=== PATIENT | female | born 1970 | race Caucasian/White ===

== ENCOUNTER 2017-04-17 20:19 | Emergency (ER) | payer OTHER, MEDICAID ==
[~2017-04-17] VITALS: Ht 154.9 cm; Wt 45.0 kg
[~2017-04-17 20:19] MED LIST: ADVA115A PO; ALPR2TAB3 PO; CEFA1INJ IVPB; CHLO25 PO; FERR324T4 PO; LORTA5 PO; NEBUMIS6; OXYGEN; PROT40TA PO; SERT50 PO
[2017-04-17 20:20] VITALS: BP 170/82; PULSE 103; RESP 16; TEMP 97.7; O2SAT 99
[2017-04-17] MEDS ORDERED: SODIUM CHLOR 0.9% 1000 ML INJ 1,000 ML IV SCH (21:47)
--- NOTE | 2017-04-17 21:50 | PD ---
HPI Chief Complaint: Abdominal Pain Time Seen by Provider: 21:29 Travel History International Travel<30 days: No Contact w/Intl Traveler<30days: No Traveled to known affect area: No History of Present Illness HPI 47-year-old female presents emergency department for evaluation of upper respiratory symptoms 2 weeks, cough, sore throat, nasal congestion. She is unsure if she is had any fevers due to lack a thermometer. 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 She still smokes 4 cigarettes a day. She is also reporting abdominal pain 2 days. Patient states she had a ruptured intestine in 2014 and since that surgery she consistently has nausea, vomiting and diarrhea. Patient states she has not eaten since pain started 2 days ago so she is unsure if eating exacerbates the pain. The patient states the last time she felt this pain was when her bowel was perforated. Patient denies any hematemesis or blood in her stool. She denies any dysuria or hematuria. She denies any vaginal discharge or vaginal bleeding. Patient states her boyfriend was recently diagnosed with hepatitis C and she is very concerned that she may be infected. PFSH Past Medical History Hx Anticoagulant Therapy: No Autoimmune Disease: No Anxiety: Yes Depression: Yes Cancer: No Cardiovascular Problems: Yes Chemotherapy: No COPD: Yes (PPD SMOKER) Cerebrovascular Accident: No Diabetes: No Deep Vein Thrombosis: Yes Endocrine: No Immune Disorder: No Implanted Vascular Access Dvce: No Neurologic: No Psychiatric: No Respiratory: Yes (COPD) Immunizations Current: Yes Thyroid Disease: No Ulcer: Yes (REPAIR IN 2010) Tetanus Vaccination: > 5 Years Influenza Vaccination: No ?: Unknown Menopausal: Yes : 2 Para: 2 Miscarriage: 0 Tubal Ligation: Yes Past Surgical History Abdominal Surgery: Yes Cholecystectomy: Yes (2010 removed half stomach from perforated ulcers) Genitourinary Surgery: Yes Hysterectomy: Yes (1998) Thoracic Surgery: Yes (RT MID/LOWER LOBECTOMY 2010) Valve Replacement: Yes (right ivc filter, right lower lobes lung gone r/t clot) Other Surgery: Yes (right mid and lower lobectomy 2010) Social History Alcohol Use: Yes (rare) Tobacco Use: Yes ( pack a day ) Substance Use: No Allergies-Medications (Allergen,Severity, Reaction): Coded Allergies: No Known Allergies (Unverified Adverse Reaction, Unknown, 04/17/17) Reported Meds & Prescriptions Reported Meds & Active Scripts Active Azithromycin 250 Mg Tab 250 Mg PO DIRECTED Take 2 tabs (500 mg) on day 1 then 1 tab daily x 4 days. Tramadol (Tramadol HCl) 50 Mg Tab 50 Mg PO Q6H PRN Ancef (Cefazolin) 1 gram Inj 1 Gm IVPB Q8H 14 Days Hydrocodone/Acetaminophen 5 mg/325 mg 1 Tab 1 Tab PO Q4H PRN 1 Days Ferrous Sulfate 325 Mg Tab 325 Mg PO BID@12,17 30 Days Librium 25 mg Cap (Chlordiazepoxide) 25 Mg Cap 25 Mg PO Q8HR 1 Days Protonix (Pantoprazole Sodium) 40 Mg Tabdr 40 Mg PO Q12HR Reported Zoloft (Sertraline HCl) 50 Mg Tab 50 Mg PO DAILY Alprazolam 2 Mg Tab 2 Mg PO BID PRN [Oxygen 2 L] AT NIGHT [Nebulizer] Advair Hfa 115/21 (Fluticasone-Salmeterol HFA 115 mcg/21 mcg) Fluticasone/ Salmeterol 115/21 Inh 1 Puff PO BID Review of Systems Except as stated in HPI: all other systems reviewed are Neg Physical Exam Narrative GENERAL: Appears older than stated age, pale and frail 47-year-old female patient in no acute respiratory distress. SKIN: Focused skin assessment warm/dry. HEAD: Normocephalic. Atraumatic. EYES: No scleral icterus. No injection or drainage. THROAT: Mild pharyngeal injection, No exudates. Airway is patent. ENT: Mucosa pink and moist. Airway patent. Nasal turbinates appear mildly hypertrophic without nasal blood, purulent drainage or septal hematoma. NECK: Supple, trachea midline. No JVD or lymphadenopathy. CARDIOVASCULAR: Regular rate and rhythm without murmurs, gallops, or rubs. RESPIRATORY: Breath sounds equal bilaterally. No accessory muscle use. GASTROINTESTINAL: Abdomen soft, bilateral lower quadrant tenderness with palpation, no masses noted, nondistended. MUSCULOSKELETAL: No cyanosis, or edema. BACK: Nontender without obvious deformity. No CVA tenderness. Data Data Last Documented VS Vital Signs Date Time Temp Pulse Resp B/P (MAP) Pulse Ox O2 Delivery O2 Flow Rate FiO2 04/18/17 04:53 04/18/17 02:00 80 16 98 Room Air 04/17/17 20:20 97.7 Orders Orders Complete Blood Count With Diff (12/15/17 21:47) Comprehensive Metabolic Panel (04/17/17 21:47) Lipase (04/17/17 21:47) Prothrombin Time / Inr (Pt) (04/17/17 21:47) Act Partial Throm Time (Ptt) (04/17/17 21:47) Urinalysis - C+S If Indicated (04/17/17 21:47) Iv Access Insert/Monitor (04/17/17 21:47) Ecg Monitoring (04/17/17 21:47) Sodium Chlor 0.9% 1000 Ml Inj (Ns 1000 M (04/17/17 21:47) Influenzae A/B Antigen (04/17/17 21:48) Chest, Single Ap (04/17/17 21:48) Abdomen, Upright Only (04/17/17 22:02) Labs Laboratory Tests Test 04/17/17 22:00 White Blood Count 5.7 TH/MM3 Red Blood Count 4.23 MIL/MM3 Hemoglobin 11.7 GM/DL Hematocrit 35.2 % Mean Corpuscular Volume 83.1 FL Mean Corpuscular Hemoglobin 27.6 PG Mean Corpuscular Hemoglobin Concent 33.2 % Red Cell Distribution Width 18.3 % Platelet Count 297 TH/MM3 Mean Platelet Volume 7.5 FL Neutrophils (%) (Auto) 53.2 % Lymphocytes (%) (Auto) 35.3 % Monocytes (%) (Auto) 6.5 % Eosinophils (%) (Auto) 4.1 % Basophils (%) (Auto) 0.9 % Neutrophils # (Auto) 3.1 TH/MM3 Lymphocytes # (Auto) 2.0 TH/MM3 Monocytes # (Auto) 0.4 TH/MM3 Eosinophils # (Auto) 0.2 TH/MM3 Basophils # (Auto) 0.1 TH/MM3 CBC Comment DIFF FINAL Differential Comment Prothrombin Time 10.1 SEC Prothromb Time International Ratio 1.0 RATIO Activated Partial Thromboplast Time 25.7 SEC Urine Color LIGHT-YELLOW Urine Turbidity HAZY Urine pH 5.5 Urine Specific [place] 1.006 Urine Protein NEG mg/dL Urine Glucose (UA) NEG mg/dL Urine Ketones NEG mg/dL Urine Occult Blood TRACE Urine Nitrite NEG Urine Bilirubin NEG Urine Urobilinogen LESS THAN 2.0 MG/DL Urine Leukocyte Esterase NEG Urine RBC 1 /hpf Urine WBC 3 /hpf Urine Squamous Epithelial Cells 4 /hpf Urine Bacteria RARE /hpf Microscopic Urinalysis Comment CULT NOT INDICATED Blood Urea Nitrogen 6 MG/DL Creatinine 0.54 MG/DL Random Glucose 74 MG/DL Total Protein 7.4 GM/DL Albumin 3.3 GM/DL Calcium Level 8.3 MG/DL Alkaline Phosphatase 92 U/L Aspartate Amino Transf (AST/SGOT) 18 U/L Alanine Aminotransferase (ALT/SGPT) 21 U/L Total Bilirubin 0.2 MG/DL Sodium Level 141 MEQ/L Potassium Level 3.6 MEQ/L Chloride Level 111 MEQ/L Carbon Dioxide Level 22.7 MEQ/L Anion Gap 7 MEQ/L Estimat Glomerular Filtration Rate 122 ML/MIN Lipase 172 U/L [facility] Medical Decision Making Medical Screen Exam Complete: Yes Emergency Medical Condition: Yes Differential Diagnosis Differential diagnoses include but not limited to gastroenteritis, perforated bowel, chronic abdominal pain, sinusitis, influenza, bronchitis Narrative Course Placed on monitor, IV obtained and blood works in the lab, CBC, CMP, lipase, PT INR, UA ordered and pending. Influenza ordered and pending. Chest x-ray ordered and pending. Upright abdomen x-ray ordered and pending. 1 L normal saline bolus given. Blood work shows no acute abnormality, liver enzymes were elevated, UA shows no acute abnormality. Dr. Taylor assumes care for this patient. Please see his documentation for further details and disposition. Laboratory Tests Test 04/17/17 22:00 White Blood Count 5.7 TH/MM3 Red Blood Count 4.23 MIL/MM3 Hemoglobin 11.7 GM/DL Hematocrit 35.2 % Mean Corpuscular Volume 83.1 FL Mean Corpuscular Hemoglobin 27.6 PG Mean Corpuscular Hemoglobin Concent 33.2 % Red Cell Distribution Width 18.3 % Platelet Count 297 TH/MM3 Mean Platelet Volume 7.5 FL Neutrophils (%) (Auto) 53.2 % Lymphocytes (%) (Auto) 35.3 % Monocytes (%) (Auto) 6.5 % Eosinophils (%) (Auto) 4.1 % Basophils (%) (Auto) 0.9 % Neutrophils # (Auto) 3.1 TH/MM3 Lymphocytes # (Auto) 2.0 TH/MM3 Monocytes # (Auto) 0.4 TH/MM3 Eosinophils # (Auto) 0.2 TH/MM3 Basophils # (Auto) 0.1 TH/MM3 CBC Comment DIFF FINAL Differential Comment Prothrombin Time 10.1 SEC Prothromb Time International Ratio 1.0 RATIO Activated Partial Thromboplast Time 25.7 SEC Urine Color LIGHT-YELLOW Urine Turbidity HAZY Urine pH 5.5 Urine Specific [place] 1.006 Urine Protein NEG mg/dL Urine Glucose (UA) NEG mg/dL Urine Ketones NEG mg/dL Urine Occult Blood TRACE Urine Nitrite NEG Urine Bilirubin NEG Urine Urobilinogen LESS THAN 2.0 MG/DL Urine Leukocyte Esterase NEG Urine RBC 1 /hpf Urine WBC 3 /hpf Urine Squamous Epithelial Cells 4 /hpf Urine Bacteria RARE /hpf Microscopic Urinalysis Comment CULT NOT INDICATED Blood Urea Nitrogen 6 MG/DL Creatinine 0.54 MG/DL Random Glucose 74 MG/DL Total Protein 7.4 GM/DL Albumin 3.3 GM/DL Calcium Level 8.3 MG/DL Alkaline Phosphatase 92 U/L Aspartate Amino Transf (AST/SGOT) 18 U/L Alanine Aminotransferase (ALT/SGPT) 21 U/L Total Bilirubin 0.2 MG/DL Sodium Level 141 MEQ/L Potassium Level 3.6 MEQ/L Chloride Level 111 MEQ/L Carbon Dioxide Level 22.7 MEQ/L Anion Gap 7 MEQ/L Estimat Glomerular Filtration Rate 122 ML/MIN Lipase 172 U/L Last Impressions Abdomen X-Ray 04/17/[id number] Signed Impressions: Service Date/Time: Monday, April 17, 2017 22:16 - CONCLUSION: 1. No acute findings. Bill Bearden MD Chest X-Ray 04/[id number] Signed Impressions: Service Date/Time: Monday, April 17, 2017 22:13 - CONCLUSION: 1. Healing right sided rib fractures. Stable perihilar parenchymal opacities bilaterally since prior examinations. Bill Bearden MD Scripts Azithromycin (Azithromycin) 250 Mg Tab 250 MG PO DIRECTED for Infection, #6 TAB 0 Refills Take 2 tabs (500 mg) on day 1 then 1 tab daily x 4 days. Prov: Luca Taylor MD 04/18/17 Tramadol (Tramadol) 50 Mg Tab 50 MG PO Q6H Y for PAIN, #10 TAB 0 Refills Prov: Luca Taylor MD 04/18/17 Sri Au Apr 17, 2017 21:50
[2017-04-17 22:11] VITALS: BP 159/97; PULSE 98; RESP 18; O2SAT 99
[2017-04-17 22:24] LABS: AUTOMATED NEUTROPHIL # 3.1 TH/MM3 (1.8-7.7); BASOPHIL # 0.1 TH/MM3 (0-0.2); BASOPHIL % 0.9 % (0.0-2.0); EOSINOPHIL # 0.2 TH/MM3 (0-0.4); EOSINOPHIL % 4.1 % (0.0-4.0); HEMATOCRIT 35.2 % (35.0-46.0); HEMOGLOBIN 11.7 GM/DL (11.6-15.3); LYMPH % 35.3 % (9.0-44.0); MEAN CELL VOLUME 83.1 FL (80.0-100.0); MEAN CORPUSCULAR HEMOGLOBIN 27.6 PG (27.0-34.0); MEAN CORPUSCULAR HGB CONC 33.2 % (32.0-36.0); MEAN PLATELET VOLUME 7.5 FL (7.0-11.0); MONO % 6.5 % (0.0-8.0); MONOCYTE # 0.4 TH/MM3 (0-0.9); NEUT % 53.2 % (16.0-70.0); PLATELET COUNT 297 TH/MM3 (150-450); RED BLOOD COUNT 4.23 MIL/MM3 (4.00-5.30); RED CELL DISTRIBUTION WIDTH 18.3 % (11.6-17.2); WHITE BLOOD COUNT 5.7 TH/MM3 (4.0-11.0)
[2017-04-17 22:29] LABS: BACTERIA, URINE RARE /hpf; BILIRUBIN, URINE NEG (NEG); BLOOD, URINE TRACE (NEG); GLUCOSE,URINE NEG (NEG); KETONE, URINE NEG (NEG); NITRITE,URINE NEG (NEG); PH, URINE 5.5 (5.0-8.5); SQUAMOUS EPITHELIAL CELL URINE 4 /hpf (0-5); URINE COLOR LIGHT-YELLOW (YELLW/STRAW); URINE LEUKOCYTE ESTERASE NEG (NEG)
--- NOTE | 2017-04-17 22:46 | RADRPT ---
EXAM DATE/TIME: 04/17/2017 22:13 [facility] COMPARISON: CHEST SINGLE AP, April 11, 2015, 2:50. INDICATIONS : Patient complains of shortness of breath. MEDICAL HISTORY : Sepsis. Gerd SURGICAL HISTORY : Tubal ligation. Lobe resection/ Rt wrist. ENCOUNTER: Initial ACUITY: 2 days PAIN SCORE: 0/10 LOCATION: chest FINDINGS: Comparison is to 2014. Remote right rib fractures and chronic parenchymal opacity in the right mid ya ng, presumably scarring similar to examination from 2 years ago. Linear scarring also present upper l eft lung. No effusion or pneumothorax. Heart size normal. CONCLUSION: 1. Healing right sided rib fractures. Stable perihilar parenchymal opacities bilaterally since prior examinations. Bill Bearden MD on April 17, 2017 at 22:42 Board Certified Radiologist. This report was verified electronically.
--- NOTE | 2017-04-17 22:49 | RADRPT ---
EXAM DATE/TIME: 04/17/2017 22:16 [facility] COMPARISON: No previous studies available for comparison. INDICATIONS : Patient complains of upper abdomen. MEDICAL HISTORY : None. SURGICAL HISTORY : None. ENCOUNTER: Initial ACUITY: 1 day PAIN SCORE: 4/10 LOCATION: Abdomen FINDINGS: A single erect view of the abdomen demonstrates the lower lungs to be clear. Multiple healing right r ib fractures. Inferior vena cava filter noted. CONCLUSION: 1. No acute findings. Bill Bearden MD on April 17, 2017 at 22:44 Board Certified Radiologist. This report was verified electronically.
[2017-04-17 22:50] LABS: ALBUMIN 3.3 GM/DL (3.4-5.0); AST (GOT) 18 U/L (15-37); BICARBONATE 22.7 MEQ/L (21.0-32.0); BLOOD UREA NITROGEN 6 MG/DL (7-18); CALCIUM 8.3 MG/DL (8.5-10.1); CHLORIDE 111 MEQ/L (98-107); CREATININE 0.54 MG/DL (0.50-1.00); GLOMERULAR FILTRATION RATE 122 ML/MIN (>89); GLUCOSE,RANDOM 74 MG/DL (74-106); LIPASE 172 U/L (73-393); SODIUM (NA) 141 MEQ/L (136-145)
[2017-04-17 22:53] LABS: ALKALINE PHOSPHATASE 92 U/L (45-117); ALT (GPT) 21 U/L (10-53); TOTAL BILIRUBIN ADULT 0.2 MG/DL (0.2-1.0); TOTAL PROTEIN 7.4 GM/DL (6.4-8.2)
[2017-04-17 22:56] LABS: PROTHROMBIN TIME - PATIENT 10.1 SEC (9.8-11.6)
[2017-04-18 02:00] VITALS: BP 147/78; PULSE 80; RESP 16; O2SAT 98
[2017-04-18] MEDS ORDERED: AZIT250T3 PO (05:15)
[2017-04-18] MEDS ORDERED: TRAM50TA PO (05:15)
--- NOTE | 2017-04-18 05:16 | PD ---
Physical Exam Date Seen by Provider: Apr 18, 2017 Time Seen by Provider: 12:30 Narrative Patient has lower left quadrant pain as well as upper congestion and flulike symptoms patient's flu was negative she was seen by the PA I am discharging the patient with a Z-Reilly and Tylenol and a few tramadol for her pain and she is going to follow-up as outpatient. Data Data Last Documented VS Vital Signs Date Time Temp Pulse Resp B/P (MAP) Pulse Ox O2 Delivery O2 Flow Rate FiO2 04/18/17 04:53 04/18/17 02:00 80 16 98 Room Air 04/17/17 20:20 97.7 Orders Orders Complete Blood Count With Diff (04/17/17 21:47) Comprehensive Metabolic Panel (04/17/17 21:47) Lipase (04/17/17 21:47) Prothrombin Time / Inr (Pt) (04/17/17 21:47) Act Partial Throm Time (Ptt) (04/17/17 21:47) Urinalysis - C+S If Indicated (04/17/17 21:47) Iv Access Insert/Monitor (04/17/17 21:47) Ecg Monitoring (04/17/17 21:47) Sodium Chlor 0.9% 1000 Ml Inj (Ns 1000 M (04/17/17 21:47) Influenzae A/B Antigen (04/17/17 21:48) Chest, Single Ap (04/17/17 21:48) Abdomen, Upright Only (04/17/17 22:02) Labs Laboratory Tests Test 04/17/17 22:00 White Blood Count 5.7 TH/MM3 Red Blood Count 4.23 MIL/MM3 Hemoglobin 11.7 GM/DL Hematocrit 35.2 % Mean Corpuscular Volume 83.1 FL Mean Corpuscular Hemoglobin 27.6 PG Mean Corpuscular Hemoglobin Concent 33.2 % Red Cell Distribution Width 18.3 % Platelet Count 297 TH/MM3 Mean Platelet Volume 7.5 FL Neutrophils (%) (Auto) 53.2 % Lymphocytes (%) (Auto) 35.3 % Monocytes (%) (Auto) 6.5 % Eosinophils (%) (Auto) 4.1 % Basophils (%) (Auto) 0.9 % Neutrophils # (Auto) 3.1 TH/MM3 Lymphocytes # (Auto) 2.0 TH/MM3 Monocytes # (Auto) 0.4 TH/MM3 Eosinophils # (Auto) 0.2 TH/MM3 Basophils # (Auto) 0.1 TH/MM3 CBC Comment DIFF FINAL Differential Comment Prothrombin Time 10.1 SEC Prothromb Time International Ratio 1.0 RATIO Activated Partial Thromboplast Time 25.7 SEC Urine Color LIGHT-YELLOW Urine Turbidity HAZY Urine pH 5.5 Urine Specific [place] 1.006 Urine Protein NEG mg/dL Urine Glucose (UA) NEG mg/dL Urine Ketones NEG mg/dL Urine Occult Blood TRACE Urine Nitrite NEG Urine Bilirubin NEG Urine Urobilinogen LESS THAN 2.0 MG/DL Urine Leukocyte Esterase NEG Urine RBC 1 /hpf Urine WBC 3 /hpf Urine Squamous Epithelial Cells 4 /hpf Urine Bacteria RARE /hpf Microscopic Urinalysis Comment CULT NOT INDICATED Blood Urea Nitrogen 6 MG/DL Creatinine 0.54 MG/DL Random Glucose 74 MG/DL Total Protein 7.4 GM/DL Albumin 3.3 GM/DL Calcium Level 8.3 MG/DL Alkaline Phosphatase 92 U/L Aspartate Amino Transf (AST/SGOT) 18 U/L Alanine Aminotransferase (ALT/SGPT) 21 U/L Total Bilirubin 0.2 MG/DL Sodium Level 141 MEQ/L Potassium Level 3.6 MEQ/L Chloride Level 111 MEQ/L Carbon Dioxide Level 22.7 MEQ/L Anion Gap 7 MEQ/L Estimat Glomerular Filtration Rate 122 ML/MIN Lipase 172 U/L MDM Supervised Visit with MAGDA: Yes Diagnosis Primary Impression: Viral syndrome Additional Impression: Abdominal pain Scripts Azithromycin (Azithromycin) 250 Mg Tab 250 MG PO DIRECTED for Infection, #6 TAB 0 Refills Take 2 tabs (500 mg) on day 1 then 1 tab daily x 4 days. Prov: Luca Taylor MD 04/18/17 Tramadol (Tramadol) 50 Mg Tab 50 MG PO Q6H Y for PAIN, #10 TAB 0 Refills Prov: Luca Taylor MD 04/18/17 Luca Taylor MD Apr 18, 2017 05:16
== END 2017-04-18 05:32 | disposition home or self-care (01) ==
LOC: NEPE 20:19
DX: B34.9 Viral infection, unspecified (principal); F17.210 Nicotine dependence, cigarettes, uncomplicated; F41.9 Anxiety disorder, unspecified; F32.9 Major depressive disorder, single episode, unspecified; J44.9 Chronic obstructive pulmonary disease, unspecified; Z98.890 Other specified postprocedural states; Z86.718 Personal history of other venous thrombosis and embolism
CPT/HCPCS: 71010; 74000; 80053; 81001; 83690; 85025; 85610; 85730; 87804; 99284; J7030

== ENCOUNTER 2017-09-07 10:28 | Emergency (ER) | payer OTHER, MEDICAID ==
[~2017-09-07] VITALS: Ht 154.9 cm; Wt 50.0 kg
[~2017-09-07 10:28] MED LIST changes: +AZIT250T3 PO; +TRAM50TA PO
[2017-09-07 10:31] VITALS: BP 188/101; PULSE 87; RESP 18; TEMP 97.9; O2SAT 98
[2017-09-07] MEDS ORDERED: SODIUM CHLORIDE 0.9% FLUSH 10 ML FLUSH IV FLUSH PRN (11:15)
[2017-09-07] MEDS ORDERED: MORPHINE SULFATE 4 MG/ML INJ IV PUSH ONE (11:15)
[2017-09-07] MEDS ORDERED: SODIUM CHLOR 0.9% 1000 ML INJ 1,000 ML IV SCH (11:15)
[2017-09-07] MEDS ORDERED: ONDANSETRON HCL 4 MG/2 ML VIAL IVP ONE (11:15)
--- NOTE | 2017-09-07 11:19 | PD ---
HPI Chief Complaint: Abdominal Pain Time Seen by Provider: 11:01 Travel History International Travel<30 days: No Contact w/Intl Traveler<30days: No Traveled to known affect area: No History of Present Illness HPI This is a 47-year-old female who presents via EMS for evaluation of abdominal pain. Symptoms started suddenly at 5 AM. The pain is sharp, constant, primarily in the epigastrium, associated nausea and vomiting. Last bowel movement yesterday. She reports a history of perforated gastrojejunal anastomosis in 2014 and she reports that this feels similar. She denies cough, congestion, chest pain, shortness of breath, dysuria, flank pain, hematuria. She reports that she continues to use [employer] powder on a regular basis although she was told to avoid NSAIDs in the past. No other complaints. PFSH Past Medical History Hx Anticoagulant Therapy: No Autoimmune Disease: No Anxiety: Yes Depression: Yes Cancer: No Cardiovascular Problems: Yes (HTN) Chemotherapy: No COPD: Yes (PPD SMOKER) Cerebrovascular Accident: No Diabetes: No Deep Vein Thrombosis: Yes Endocrine: No Immune Disorder: No Implanted Vascular Access Dvce: No Neurologic: No Psychiatric: No Respiratory: Yes (COPD) Immunizations Current: Yes Thyroid Disease: No Ulcer: Yes (REPAIR IN 2010) Menopausal: Yes : 2 Para: 2 Miscarriage: 0 Tubal Ligation: Yes Past Surgical History Abdominal Surgery: Yes Cholecystectomy: Yes (2010 removed half stomach from perforated ulcers) Genitourinary Surgery: Yes Hysterectomy: Yes (1998) Thoracic Surgery: Yes (RT MID/LOWER LOBECTOMY 2010) Valve Replacement: Yes (right ivc filter, right lower lobes lung gone r/t clot) Other Surgery: Yes (right mid and lower lobectomy 2010) Social History Alcohol Use: Yes (rare) Tobacco Use: Yes ( pack a day ) Substance Use: No Allergies-Medications (Allergen,Severity, Reaction): Coded Allergies: No Known Allergies (Unverified Adverse Reaction, Unknown, 04/17/17) Reported Meds & Prescriptions Reported Meds & Active Scripts Active Zofran (Ondansetron HCl) 4 Mg Tab 4 Mg PO Q6HR PRN Macrobid (Nitrofurantoin Monoh/Nitrofur Macro) 100 Mg Cap 100 Mg PO BID 7 Days Azithromycin 250 Mg Tab 250 Mg PO DIRECTED Take 2 tabs (500 mg) on day 1 then 1 tab daily x 4 days. Tramadol (Tramadol HCl) 50 Mg Tab 50 Mg PO Q6H PRN Ancef (Cefazolin) 1 gram Inj 1 Gm IVPB Q8H 14 Days Hydrocodone/Acetaminophen 5 mg/325 mg 1 Tab 1 Tab PO Q4H PRN 1 Days Ferrous Sulfate 325 Mg Tab 325 Mg PO BID@12,17 30 Days Librium 25 mg Cap (Chlordiazepoxide) 25 Mg Cap 25 Mg PO Q8HR 1 Days Protonix (Pantoprazole Sodium) 40 Mg Tabdr 40 Mg PO Q12HR Reported Zoloft (Sertraline HCl) 50 Mg Tab 50 Mg PO DAILY Alprazolam 2 Mg Tab 2 Mg PO BID PRN [Oxygen 2 L] AT NIGHT [Nebulizer] Advair Hfa 115/21 (Fluticasone-Salmeterol HFA 115 mcg/21 mcg) Fluticasone/ Salmeterol 115/21 Inh 1 Puff PO BID Review of Systems Except as stated in HPI: all other systems reviewed are Neg Physical Exam Narrative GENERAL: This is a well-developed well-nourished female who appears uncomfortable on examination. SKIN: Warm and dry. Abdominal surgical scars noted. HEAD: Atraumatic. Normocephalic. EYES: Pupils equal and round. No scleral icterus. No injection or drainage. ENT: No nasal bleeding or discharge. Mucous membranes pink and moist. NECK: Trachea midline. No JVD. CARDIOVASCULAR: Regular rate and rhythm. No murmur appreciated. RESPIRATORY: No accessory muscle use. Clear to auscultation. Breath sounds equal bilaterally. GASTROINTESTINAL: Diffuse abdominal tenderness to palpation with some guarding. Bowel sounds are present in all 4 quadrants. MUSCULOSKELETAL: No obvious deformities. No clubbing. No cyanosis. No edema. NEUROLOGICAL: Awake and alert. No obvious cranial nerve deficits. Motor grossly within normal limits. Normal speech. Data Data Last Documented VS Vital Signs Date Time Temp Pulse Resp B/P (MAP) Pulse Ox O2 Delivery O2 Flow Rate FiO2 09/07/17 11:31 82 18 174/86 (115) 99 Room Air 09/07/17 10:31 97.9 Orders Orders Complete Blood Count With Diff (09/07/17 11:15) Comprehensive Metabolic Panel (09/07/17 11:15) Lipase (09/07/17 11:15) Lactic Acid (09/07/17 11:15) Prothrombin Time / Inr (Pt) (09/07/17 11:15) Act Partial Throm Time (Ptt) (09/07/17 11:15) Urinalysis - C+S If Indicated (09/07/17 11:15) Ct Abd/Pel W Iv Contrast(Rout) (09/07/17 11:15) Iv Access Insert/Monitor (09/07/17 11:15) Ecg Monitoring (09/07/17 11:15) Oximetry (09/07/17 11:15) Morphine Inj (Morphine Inj) (09/07/17 11:15) Ondansetron Inj (Zofran Inj) (09/07/17 11:15) Sodium Chlor 0.9% 1000 Ml Inj (Ns 1000 M (09/07/17 11:15) Sodium Chloride 0.9% Flush (Ns Flush) (09/07/17 11:15) Electrocardiogram (09/07/17 11:15) Abdomen, Upright Only (09/07/17 11:15) Pantoprazole Inj (Protonix Inj) (09/07/17 11:30) Ed Urine Pregnancytest Poc (09/07/17 11:42) Urine Culture (09/07/17 11:25) Iohexol 350 Inj (Omnipaque 350 Inj) (09/07/17 12:48) Ceftriaxone Inj (Rocephin Inj) (09/07/17 13:15) Ed Discharge Order (09/07/17 13:25) Labs Laboratory Tests Test 09/07/17 11:21 09/07/17 11:25 09/07/17 13:23 White Blood Count 10.0 TH/MM3 Red Blood Count 4.53 MIL/MM3 Hemoglobin 13.4 GM/DL Hematocrit 40.2 % Mean Corpuscular Volume 88.7 FL Mean Corpuscular Hemoglobin 29.6 PG Mean Corpuscular Hemoglobin Concent 33.3 % Red Cell Distribution Width 18.4 % Platelet Count 259 TH/MM3 Mean Platelet Volume 8.1 FL Neutrophils (%) (Auto) 84.8 % Lymphocytes (%) (Auto) 9.1 % Monocytes (%) (Auto) 5.5 % Eosinophils (%) (Auto) 0.4 % Basophils (%) (Auto) 0.2 % Neutrophils # (Auto) 8.5 TH/MM3 Lymphocytes # (Auto) 0.9 TH/MM3 Monocytes # (Auto) 0.6 TH/MM3 Eosinophils # (Auto) 0.0 TH/MM3 Basophils # (Auto) 0.0 TH/MM3 CBC Comment DIFF FINAL Differential Comment Prothrombin Time 11.2 SEC Prothromb Time International Ratio 1.1 RATIO Activated Partial Thromboplast Time 27.3 SEC Blood Urea Nitrogen 10 MG/DL Creatinine 0.66 MG/DL Random Glucose 91 MG/DL Total Protein 7.2 GM/DL Albumin 3.5 GM/DL Calcium Level 7.9 MG/DL Alkaline Phosphatase 131 U/L Aspartate Amino Transf (AST/SGOT) 67 U/L Alanine Aminotransferase (ALT/SGPT) 32 U/L Total Bilirubin 0.3 MG/DL Sodium Level 140 MEQ/L Potassium Level 3.9 MEQ/L Chloride Level 104 MEQ/L Carbon Dioxide Level 25.2 MEQ/L Anion Gap 11 MEQ/L Estimat Glomerular Filtration Rate 96 ML/MIN Lipase 896 U/L Urine Color LIGHT-YELLOW Urine Turbidity CLEAR Urine pH 5.0 Urine Specific [place] 1.014 Urine Protein NEG mg/dL Urine Glucose (UA) NEG mg/dL Urine Ketones NEG mg/dL Urine Occult Blood MOD Urine Nitrite POS Urine Bilirubin NEG Urine Urobilinogen LESS THAN 2.0 MG/DL Urine Leukocyte Esterase MOD Urine RBC 9 /hpf Urine WBC 52 /hpf Urine Squamous Epithelial Cells 1 /hpf Urine Bacteria RARE /hpf Urine Hyaline Casts 2 /lpf Urine Mucus FEW /lpf Microscopic Urinalysis Comment CULTURE INDICATED MDM Medical Decision Making Medical Screen Exam Complete: Yes Emergency Medical Condition: Yes Medical Record Reviewed: Yes Differential Diagnosis Pancreatitis, perforation, obstruction, diverticulitis, colitis, pyelonephritis Narrative Course Lab work, CT abdomen pelvis have been ordered. The patient was given morphine and Zofran and fluids. CT abdomen pelvis reveals CONCLUSION: 1. Low density pancreatic head and uncinate process with surrounding induration likely from pancreatitis. 2. Status post distal gastrectomy. Bowel anastomosis sutures are seen in the small bowel in the left lower quadrant. 3. Hepatic steatosis. CMP reveals no acute abnormality's, lipase is elevated at [address] findings of pancreatitis. Urinalysis is suggestive of UTI with nitrites, numerous WBCs. Rocephin initiated. Upon reexamination the patient does feel significantly improved, her pain is currently minimal. She denies history of pancreatitis, she does occasionally drink. Yesterday she had a mixed drink. At this point time the plan is to treat her as an outpatient with Macrobid and Zofran. She understands to return for any new or worsening symptoms. She is stable for discharge. Diagnosis Primary Impression: Pancreatitis Additional Impression: UTI (urinary tract infection) Additional Instructions: Liquid diet for the next 1-2 days and slowly advance as tolerated. Medication as prescribed. Follow-up with primary care physician this week and return for any acutely new or worsening symptoms. Med/Other Pt SpecificInfo: Prescription(s) given Scripts Ondansetron (Zofran) 4 Mg Tab 4 MG PO Q6HR Y for NAUSEA OR VOMITING, #20 TAB 0 Refills Prov: Danielle Catalan MD 09/07/17 Nitrofurantoin Monohydrate Macrocrystals (Macrobid) 100 Mg Cap 100 MG PO BID for Infection for 7 Days, #14 CAP 0 Refills Prov: Danielle Catalan MD 09/07/17 Disposition: 01 DISCHARGE HOME Condition: Stable Juan Chau September 07, 2017 11:19
[2017-09-07] MEDS ORDERED: PANTOPRAZOLE SODIUM 40 MG VIAL IVP ONE (11:30)
[2017-09-07 11:31] VITALS: BP 174/86; PULSE 82; RESP 18; O2SAT 99
[2017-09-07 11:31] LABS: AUTOMATED NEUTROPHIL # 8.5 TH/MM3 (1.8-7.7); BASOPHIL % 0.2 % (0.0-2.0); EOSINOPHIL % 0.4 % (0.0-4.0); HEMATOCRIT 40.2 % (35.0-46.0); HEMOGLOBIN 13.4 GM/DL (11.6-15.3); LYMPH % 9.1 % (9.0-44.0); LYMPHOCYTE # 0.9 TH/MM3 (1.0-4.8); MEAN CELL VOLUME 88.7 FL (80.0-100.0); MEAN CORPUSCULAR HEMOGLOBIN 29.6 PG (27.0-34.0); MEAN CORPUSCULAR HGB CONC 33.3 % (32.0-36.0); MEAN PLATELET VOLUME 8.1 FL (7.0-11.0); MONO % 5.5 % (0.0-8.0); MONOCYTE # 0.6 TH/MM3 (0-0.9); NEUT % 84.8 % (16.0-70.0); PLATELET COUNT 259 TH/MM3 (150-450); RED BLOOD COUNT 4.53 MIL/MM3 (4.00-5.30); RED CELL DISTRIBUTION WIDTH 18.4 % (11.6-17.2)
[2017-09-07 11:42] LABS: INTERNATIONAL NORMALIZED RATIO 1.1 RATIO; PROTHROMBIN TIME - PATIENT 11.2 SEC (9.8-11.6)
[2017-09-07 11:53] LABS: ALT (GPT) 32 U/L (10-53)
[2017-09-07 11:54] LABS: BACTERIA, URINE RARE /hpf; BILIRUBIN, URINE NEG (NEG); BLOOD, URINE MOD (NEG); GLUCOSE,URINE NEG (NEG); HYALINE CAST, URINE 2 /lpf (RARE); KETONE, URINE NEG (NEG); MUCUS URINE FEW /lpf (OCC); NITRITE,URINE POS (NEG); SQUAMOUS EPITHELIAL CELL URINE 1 /hpf (0-5); URINE COLOR LIGHT-YELLOW (YELLW/STRAW); URINE LEUKOCYTE ESTERASE MOD (NEG)
[2017-09-07 11:55] LABS: ALKALINE PHOSPHATASE 131 U/L (45-117); TOTAL BILIRUBIN ADULT 0.3 MG/DL (0.2-1.0); TOTAL PROTEIN 7.2 GM/DL (6.4-8.2)
[2017-09-07 11:56] LABS: ALBUMIN 3.5 GM/DL (3.4-5.0); AST (GOT) 67 U/L (15-37); BICARBONATE 25.2 MEQ/L (21.0-32.0); BLOOD UREA NITROGEN 10 MG/DL (7-18); CALCIUM 7.9 MG/DL (8.5-10.1); CHLORIDE 104 MEQ/L (98-107); CREATININE 0.66 MG/DL (0.50-1.00); GLOMERULAR FILTRATION RATE 96 ML/MIN (>89); GLUCOSE,RANDOM 91 MG/DL (74-106); SODIUM (NA) 140 MEQ/L (136-145)
--- NOTE | 2017-09-07 11:57 | RADRPT ---
EXAM DATE/TIME: 09/07/2017 11:48 [facility] COMPARISON: No previous studies available for comparison. INDICATIONS : Abdominal pain and vomiting. MEDICAL HISTORY : None. SURGICAL HISTORY : Cholecystectomy. Stomach surgery. ENCOUNTER: Initial ACUITY: 1 day PAIN SCORE: 10/10 LOCATION: Bilateral abdomen. FINDINGS: There is no evidence of pneumoperitoneum. There is less intestinal gas pattern is nonspecific and naima ign. An IVC filter is present. Patchy parenchymal opacities in the visualized lower lung [place] and p osterolateral right-sided rib fractures noted. CONCLUSION: No evidence of pneumoperitoneum Yasir Aleman MD on September 07, 2017 at 11:54 Board Certified Radiologist. This report was verified electronically.
[2017-09-07] MEDS ORDERED: IOHEXOL 350 MG/ML 10 ML VIAL (for RAD DIAG) IVCONTRAST ONE (12:48)
--- NOTE | 2017-09-07 13:05 | RADRPT ---
EXAM DATE/TIME: 09/07/2017 12:33 [place] COMPARISON: CT ABDOMEN & PELVIS W CONTRAST, April 09, 2015, 18:10. INDICATIONS : Abdominal pain and nausea. IV CONTRAST: 80 cc Omnipaque 350 (iohexol) IV ORAL CONTRAST: No oral contrast ingested. RADIATION DOSE: 4.52 CTDIvol (mGy) MEDICAL HISTORY : Chronic obstructive pulmonary disease. Perforated bowel. SURGICAL HISTORY : Tubal ligation. Hysterectomy.Partial gastrectomy. ENCOUNTER: Initial ACUITY: 1 day PAIN SCALE: 8/10 LOCATION: abdomen TECHNIQUE: Volumetric scanning of the abdomen and pelvis was performed. Using automated exposure control and ad justment of the mA and/or kV according to patient size, radiation dose was kept as low as reasonably achievable to obtain optimal diagnostic quality images. DICOM format image data is available electro nically for review and comparison. FINDINGS: LOWER LUNGS: The visualized lower lungs are clear. LIVER: The liver demonstrates a diffuse decreased attenuation. The liver appears mildly enlarged. No focal h epatic lesions are seen. There is intrahepatic and extra hepatic biliary duct dilatation likely refle cting a reservoir phenomenon following cholecystectomy. This appearance is unchanged. SPLEEN: Normal size without lesion. PANCREAS: Within normal limits. KIDNEYS: There is low-density seen at the head and uncinate process. There is induration of the fat surroundin g the pancreatic head and uncinate process. The pancreatic body and tail are grossly intact. ADRENAL GLANDS: Within normal limits. VASCULAR: There is no aortic aneurysm. There is an IVC filter present. BOWEL/MESENTERY: Bowel anastomosis sutures are seen in the midabdomen in the small bowel. The patient is status post d istal gastrectomy. There some induration around the duodenum likely related to the pancreatic process . ABDOMINAL WALL: Within normal limits. RETROPERITONEUM: There is no lymphadenopathy. BLADDER: No wall thickening or mass. REPRODUCTIVE: Within normal limits. INGUINAL: There is no lymphadenopathy or hernia. MUSCULOSKELETAL: Within normal limits for patient age. CONCLUSION: 1. Low density pancreatic head and uncinate process with surrounding induration likely from pancreati tis. 2. Status post distal gastrectomy. Bowel anastomosis sutures are seen in the small bowel in the left lower quadrant. 3. Hepatic steatosis. Yasir Julian MD on September 07, 2017 at 12:50 Board Certified Radiologist. This report was verified electronically.
[2017-09-07] MEDS ORDERED: cefTRIAXone INJ 1,000 MG in SODIUM CHLORIDE 0.9% INJ 100 ML IV ONE (13:15)
[2017-09-07] MEDS ORDERED: ZOFR4TAB PO (13:19)
[2017-09-07] MEDS ORDERED: MACR100C2 PO (13:19)
[2017-09-07] MEDS ORDERED: HYDR-3516 PO ×2 (14:05→14:06)
--- NOTE | 2017-09-07 18:20 | PD ---
Data Data Last Documented VS Vital Signs Date Time Temp Pulse Resp B/P (MAP) Pulse Ox O2 Delivery O2 Flow Rate FiO2 09/07/17 11:31 82 18 174/86 (115) 99 Room Air 09/07/17 10:31 97.9 Orders Orders Complete Blood Count With Diff (09/07/17 11:15) Comprehensive Metabolic Panel (09/07/17 11:15) Lipase (09/07/17 11:15) Lactic Acid (09/07/17 11:15) Prothrombin Time / Inr (Pt) (09/07/17 11:15) Act Partial Throm Time (Ptt) (09/07/17 11:15) Urinalysis - C+S If Indicated (09/07/17 11:15) Ct Abd/Pel W Iv Contrast(Rout) (09/07/17 11:15) Iv Access Insert/Monitor (09/07/17 11:15) Ecg Monitoring (09/07/17 11:15) Oximetry (09/07/17 11:15) Morphine Inj (Morphine Inj) (09/07/17 11:15) Ondansetron Inj (Zofran Inj) (09/07/17 11:15) Sodium Chlor 0.9% 1000 Ml Inj (Ns 1000 M (09/07/17 11:15) Sodium Chloride 0.9% Flush (Ns Flush) (09/07/17 11:15) Electrocardiogram (09/07/17 11:15) Abdomen, Upright Only (09/07/17 11:15) Pantoprazole Inj (Protonix Inj) (09/07/17 11:30) Ed Urine Pregnancytest Poc (09/07/17 11:42) Urine Culture (09/07/17 11:25) Iohexol 350 Inj (Omnipaque 350 Inj) (09/07/17 12:48) Ceftriaxone Inj (Rocephin Inj) (09/07/17 13:15) Ed Discharge Order (09/07/17 13:25) Labs Laboratory Tests Test 09/07/17 11:21 09/07/17 11:25 09/07/17 13:23 White Blood Count 10.0 TH/MM3 Red Blood Count 4.53 MIL/MM3 Hemoglobin 13.4 GM/DL Hematocrit 40.2 % Mean Corpuscular Volume 88.7 FL Mean Corpuscular Hemoglobin 29.6 PG Mean Corpuscular Hemoglobin Concent 33.3 % Red Cell Distribution Width 18.4 % Platelet Count 259 TH/MM3 Mean Platelet Volume 8.1 FL Neutrophils (%) (Auto) 84.8 % Lymphocytes (%) (Auto) 9.1 % Monocytes (%) (Auto) 5.5 % Eosinophils (%) (Auto) 0.4 % Basophils (%) (Auto) 0.2 % Neutrophils # (Auto) 8.5 TH/MM3 Lymphocytes # (Auto) 0.9 TH/MM3 Monocytes # (Auto) 0.6 TH/MM3 Eosinophils # (Auto) 0.0 TH/MM3 Basophils # (Auto) 0.0 TH/MM3 CBC Comment DIFF FINAL Differential Comment Prothrombin Time 11.2 SEC Prothromb Time International Ratio 1.1 RATIO Activated Partial Thromboplast Time 27.3 SEC Blood Urea Nitrogen 10 MG/DL Creatinine 0.66 MG/DL Random Glucose 91 MG/DL Total Protein 7.2 GM/DL Albumin 3.5 GM/DL Calcium Level 7.9 MG/DL Alkaline Phosphatase 131 U/L Aspartate Amino Transf (AST/SGOT) 67 U/L Alanine Aminotransferase (ALT/SGPT) 32 U/L Total Bilirubin 0.3 MG/DL Sodium Level 140 MEQ/L Potassium Level 3.9 MEQ/L Chloride Level 104 MEQ/L Carbon Dioxide Level 25.2 MEQ/L Anion Gap 11 MEQ/L Estimat Glomerular Filtration Rate 96 ML/MIN Lipase 896 U/L Urine Color LIGHT-YELLOW Urine Turbidity CLEAR Urine pH 5.0 Urine Specific [place] 1.014 Urine Protein NEG mg/dL Urine Glucose (UA) NEG mg/dL Urine Ketones NEG mg/dL Urine Occult Blood MOD Urine Nitrite POS Urine Bilirubin NEG Urine Urobilinogen LESS THAN 2.0 MG/DL Urine Leukocyte Esterase MOD Urine RBC 9 /hpf Urine WBC 52 /hpf Urine Squamous Epithelial Cells 1 /hpf Urine Bacteria RARE /hpf Urine Hyaline Casts 2 /lpf Urine Mucus FEW /lpf Microscopic Urinalysis Comment CULTURE INDICATED Lactic Acid Level 0.8 mmol/L MDM Supervised Visit with MAGDA: Yes Narrative Course The history, exam, and medical decision-making in the associated midlevel provider note were completed with my assistance. I reviewed and agree with the findings presented. I attest that I had a [id number] encounter with the patient on the same day, and personally performed and documented my assessment and findings in the medical record. *My assessment and Findings: This is a 47-year-old female who has a history of perforated gastrojejunostomy and alcohol abuse who presents to the emergency department with abdominal pain. Labs demonstrate acute pancreatitis. She is nontoxic appearing. CT abdomen pelvis is reassuring with no evidence of pseudocyst or bowel perforation. Patient was discharged on pain control. Diagnosis Primary Impression: Pancreatitis Additional Impression: UTI (urinary tract infection) Patient Instructions: General Instructions Departure Forms: Tests/Procedures Additional Instruction: Liquid diet for the next 1-2 days and slowly advance as tolerated. Medication as prescribed. Follow-up with primary care physician this week and return for any acutely new or worsening symptoms. Scripts Hydrocodone-Acetaminophen (Hydrocodone-Acetaminophen) 5-325 mg Tab 1 TAB PO Q6H Y for PAIN, #15 TAB 0 Refills Prov: Danielle Catalan MD 09/07/17 Ondansetron (Zofran) 4 Mg Tab 4 MG PO Q6HR Y for NAUSEA OR VOMITING, #20 TAB 0 Refills Prov: Danielle Catalan MD 09/07/17 Nitrofurantoin Monohydrate Macrocrystals (Macrobid) 100 Mg Cap 100 MG PO BID for Infection for 7 Days, #14 CAP 0 Refills Prov: Danielle Catalan MD 09/07/17 Disposition: 01 DISCHARGE HOME Condition: Stable Danielle Catalan MD September 07, 2017 18:20
--- NOTE | 2017-09-08 14:17 | EKG ---
Date Performed: 09/07/2017 Time Performed: 11:39:36 PTAGE: 47 years EKG: Sinus rhythm POSSIBLE LEFT ATRIAL ENLARGEMENT BORDERLINE ECG PREVIOUS TRACING : 07/15/2015 15.20 DOCTOR: Blas Art Interpretating Date/Time 09/08/2017 14:15:01
== END 2017-09-07 14:24 | disposition home or self-care (01) ==
LOC: NEPE 10:28
DX: K85.90 Acute pancreatitis without necrosis or infection, unspecified (principal); N39.0 Urinary tract infection, site not specified; B96.20 Unspecified Escherichia coli [E. coli] as the cause of diseases classified elsewhere; I10 Essential (primary) hypertension; J44.9 Chronic obstructive pulmonary disease, unspecified; F32.9 Major depressive disorder, single episode, unspecified; F17.210 Nicotine dependence, cigarettes, uncomplicated
CPT/HCPCS: 74018; 74177; 80053; 81001; 83605; 83690; 84703; 85025; 85610; 85730; 87086; 93005; 96361; 96374; 96375; 99285; C9113; J0696; J2270; J2405; J7030; Q9967

== ENCOUNTER 2018-03-03 06:03 | Inpatient (IN) ==
[2018-03-03] MEDS ORDERED: Sod Chloride 0.9% Inj 1,000 ML IV.SIG ONE ×2 (06:49→06:50)
[2018-03-03] MEDS ORDERED: fentaNYL Citrate Inj 100 MCG/2 ML Ampul IV.PUSH ONE ×2 (06:49→08:18)
--- NOTE | 2018-03-03 07:01 | XR ---
EXAM DATE: 03/03/2018 6:56 AM EDT AGE/SEX: 47 years / Female INDICATIONS: Central line placement. CLINICAL DATA: This is the patient's initial encounter. Patient reports that signs and symptoms have been present for 1 day and indicates a pain score of 0/10. MEDICAL/SURGICAL HISTORY: None. None. COMPARISON: [facility] – [place], CHEST SINGLE AP, 04/17/2017. . FINDINGS: Scattered nodular opacities of the bilateral mid and upper lungs again noted with mild scarring and m ild bronchiectasis, not significantly changed. No acute pneumonia seen. No pleural effusion or pneumo thorax. There is a left internal jugular central venous catheter with tip in the superior vena cava. Normal, stable heart size. Old right rib fractures are again seen. CONCLUSION: 1. Left IJ central venous catheter with tip in the superior vena cava. No pneumothorax. 2. No acute infiltrate. Scattered parenchymal opacities and bronchiectasis/scarring not significantl y changed. Electronically signed by: Yasir Mari MD 03/03/2018 7:00 AM EDT
--- NOTE | 2018-03-03 07:02 | ED ---
HPI General Chief complaint: Abdominal Pain Stated complaint: abd pain Time Seen by Provider: 03/03/18 06:13 Source: patient and EMS Mode of arrival: EMS Limitations: other (hemodynamically unstable) History of Present Illness HPI narrative: 47yF presenting with abdominal pain and profound hypotension. The patient reports that she's been having periumbilical/ LLQ abdominal pain for the past 2 days which has been constant, severe, "sharp/ stabbing", non- radiating, worse with any movement, associated with chills and little to no PO intake. She called EMS this morning when the pain became suddenly worse. Past history of bowel perforation (unsure location) with ex-lap several years ago. Related Data Home Medications Medication Instructions Recorded Confirmed albuterol sulfate [Ventolin HFA] 2 puff INHALATION Q4-6H PRN 03/03/18 03/03/18 lisinopril 20 mg PO DAILY 03/03/18 03/03/18 pantoprazole [Protonix] 40 mg PO BID 03/03/18 03/03/18 Allergies Allergy/AdvReac Type Severity Reaction Status Date / Time No Known Allergies Unknown Uncoded 04/17/17 20:29 Review of Systems ROS Unobtainable ROS Unobtainable: other (limited due to confusion and hemodynamic instability on arrival) PMFSH History History Provided By: Patient Medical History Medical History COPD (chronic obstructive pulmonary disease) (Acute) Gastroesophageal reflux disease (Acute) HTN (hypertension) (Acute) Perforated bowel (Acute) Surgical History Surgical History History of Cristofer-en-Y gastric bypass (Acute) History of bowel resection (Acute) S/P IVC filter (Acute) S/P lobectomy of lung (Acute) Status post wrist surgery (Acute) Family History Family History Father Family history of hypertension Family history of hyperlipidemia Mother Family history of chronic kidney disease Social History Social History Substance History: No History of Abuse Second Hand Smoke Exposure: Yes Smoking Status: Current every day smoker Tobacco Type: Cigarettes How Often Do You Have a Drink Containing Alcohol: Monthly or less Recent Travel in [facility] within the Last 8 Weeks: No Recent Out of Country Travel within the Last 8 Weeks: No Exam Const General: acute distress and ill appearing Other: Appears pale HENMT Face and sinus: normal facial exam Other: Mucosa very dry Eyes General: appearance normal, both eyes and all related structures Chest Chest: normal inspection of the chest Resp Effort & Inspection: normal respiratory effort Other: Lungs clear to auscultation bilaterally, mildly tachypneic Cardio Rate: tachycardic Rhythm: regular rhythm Other: Initial BP 60s/40s GI Other: Soft, non-distended, moderate diffuse tenderness with guarding in left lower quadrant Skin Other: Pale, poor turgor Neuro General: alert, awake and oriented x3 Procedures Central Line Placement Left IJ: Time Out Performed: Yes Patient Placed on Monitor/Pulse Ox: Yes MD Prep: mask, gown and gloves Central Line Prep: Chlorhexidine scrub Local anesthesia used: lidocaine 1% Amount of anesthesia used (mL): 5 Ultrasound Used for Placement: Yes Central Line Lumen Inserted: triple Post Procedure: sutured in place, good blood return, all ports aspirated, flushed, capped and sterile dressing applied Post Procedure X-Ray: tip of catheter in good position Patient Tolerated Procedure: well and no complications Additional Comments: Verbal consent obtained from patient due to acuity of condition and need for emergent vascular access Course Initial Documented Vital Signs Pulse Rate 84 03/03/18 07:15 Respiratory Rate 16 03/03/18 07:15 Blood Pressure 102/57 L 03/03/18 07:15 Pulse Oximetry 96 03/03/18 07:15 Last Documented Vital Signs Temperature 97.7 F 03/03/18 07:16 Pulse Rate 79 03/03/18 14:00 Respiratory Rate 17 03/03/18 14:00 Blood Pressure 112/62 03/03/18 14:00 Pulse Oximetry 98 03/03/18 14:00 Critical Care Time Critical Care Time: Yes Total Critical Care Time: 42 Attestation: Counseling/ Coordination of Care: This patient is critically ill with impairment of one or more vital organ systems with a high probability of imminent or life-threatening deterioration. High-complexity medical decision making was required to support vital organ function and/ or prevent deterioration in the patient's condition. Total critical care time spent is 42 minutes giving full attention to this patient. This includes examining and stabilizing the patient, gathering a history from a source other than the patient (i.e., chart review, EMS), formulating a differential diagnosis, ordering and interpreting laboratory tests and EKG, ordering and interpreting radiology tests, management of hemodynamic instability and electrolyte abnormalities, re-evaluation at frequent intervals, and documentation. Amount of time is separate from teaching, counseling the patient and/or family, and exclusive of procedures. Sign Out Sign Out Data: Patient Sign Out occurred on 03/03/18 at 08:01. Patient's care was discussed, and care was transferred from Elle Barbosa DO to Blas Birch MD. Sign Out Comment: Severe LLQ abdominal pain and hemodynamically unstable on arrival, now has LIJ central line, BP improved after 2L bolus. Magnesium 0.8, being aggressively repleted. Pending CT abd/ pelvis. Last updated by Elle Barbosa DO at 03/03/18 07:55 Post-Handoff Eval: Patient continues to have abdominal pain. Still significant abdominal tenderness. CT scan shows some changes in the small bowel with thickening and dilation. No free air. There is some fluid in the pelvis. Spoke with Dr. White , with critical care medicine, will admit patient. Will also call Dr. Lutz, on- call for general surgery to evaluate patient as well. Medical Decision Making MDM Narrative Medical decision making narrative: Assessment: 47yF presenting with abdominal pain and hemodynamic instability Plan: Patient with very poor peripheral access, RNs and myself only able to get tenuous 20g peripheral despite several attempts (including US guided) LIJ central line placed emergently for hemodynamic instability CXR shows line in good position, no free air noted under diaphragm Aggressive IV fluid resuscitation Labs, including lactate and cultures CT abd/ pelvis Medical Screen Exam Complete: Yes Emergency Medical Condition: Yes Differential Diagnosis Differential Diagnosis: Differential diagnosis includes, but is not limited to: perforation, diverticulitis, colitis, AAA, sepsis Medical Records Medical records reviewed: Yes I reviewed the patient's medical records. Lab Data Lab results reviewed: Yes I reviewed the patient's lab results. Result diagrams: 03/03/18 13:56 03/03/18 06:55 Lab Results 03/03/18 03/03/18 03/03/18 Range/Units 06:55 06:55 06:55 WBC 16.3 H (4.0-11.0) th/mm3 RBC 4.10 (4.00-5.30) mil/mm3 Hgb 12.7 (11.6-15.3) gm/dL Hct 39.1 (35.0-46.0) % MCV 95.4 (80.0-100.0) fL MCH 30.9 (27.0-34.0) pg MCHC 32.4 (32.0-36.0) % RDW 15.9 (11.6-17.2) % Plt Count 263 (150-450) th/mm3 MPV 9.4 (7.0-11.0) fL Neut % (Auto) 86.5 H (16.0-70.0) % Lymph % (Auto) 7.1 L (9.0-44.0) % Ocean % (Auto) 5.8 (0.0-8.0) % Eos % (Auto) 0.4 (0.0-4.0) % Baso % (Auto) 0.2 (0.0-2.0) % Neut # (Auto) 14.1 H (1.8-7.7) th/mm3 Lymph # (Auto) 1.2 (1.0-4.8) th/mm3 Ocean # (Auto) 0.9 (0.0-0.9) th/mm3 Eos # (Auto) 0.1 (0.0-0.4) th/mm3 Baso # (Auto) 0.0 (0.0-0.2) th/mm3 WBC Differential . Differential Comment Auto diff final PT 12.0 H (9.8-11.6) sec INR 1.2 Ratio APTT 24.2 L (24.3-30.1) sec Sodium 142 (136-145) meq/L Potassium 3.3 L (3.5-5.1) meq/L Chloride 110 H (98-107) meq/L Carbon Dioxide 20.8 L (21.0-32.0) meq/L Anion Gap 11 (5-15) meq/L BUN 17 (7-18) mg/dL Creatinine 1.00 (0.50-1.00) mg/dL Estimated GFR 60 L (>89) mL/min POC Glucose (68-110) mg/dl Random Glucose 110 H (74-106) mg/dL Lactic Acid (0.4-2.0) mmol/L Calcium 9.0 (8.5-10.1) mg/dL Magnesium 0.8 L (1.5-2.5) mg/dL Total Bilirubin 0.5 (0.2-1.0) mg/dL AST 7 L (15-37) U/L ALT 9 L (10-53) U/L Alkaline Phosphatase 60 (45-117) U/L Total Creatine Kinase 27 (26-192) U/L Troponin I Less than 0.02 L (0.02-0.05) ng/mL Total Protein 5.7 L (6.4-8.2) g/dL Albumin 2.6 L (3.4-5.0) g/dL Lipase 39 L (73-393) U/L Urine Color (Yellw/Straw) Urine Clarity (Clear) Urine pH (5.0-8.5) Ur Specific [place] (1.002-1.035) Urine Protein (Neg-Trace) mg/dL Urine Glucose (UA) (Negative) mg/dL Urine Ketones (Negative) mg/dL Urine Occult Blood (Negative) Urine Nitrate (Negative) Urine Bilirubin (Negative) Urine Urobilinogen (Less than 2) mg/dL Ur Leukocyte Esterase (Negative) Urine RBC (0-3) /hpf Urine WBC (0-5) /hpf Ur Squamous Epith Cells (0-5) /hpf Hyaline Casts (0-3) /lpf Granular Casts (None) /lpf Urine Mucus (Occasional) /lpf Micro UA Comment Ur Microscopic Review Urine Culture Comments Blood Type Blood Type Recheck Antibody Screen 03/03/18 03/03/18 03/03/18 Range/Units 06:55 06:55 11:48 WBC (4.0-11.0) th/mm3 RBC (4.00-5.30) mil/mm3 Hgb (11.6-15.3) gm/dL Hct (35.0-46.0) % MCV (80.0-100.0) fL MCH (27.0-34.0) pg MCHC (32.0-36.0) % RDW (11.6-17.2) % Plt Count (150-450) th/mm3 MPV (7.0-11.0) fL Neut % (Auto) (16.0-70.0) % Lymph % (Auto) (9.0-44.0) % Ocean % (Auto) (0.0-8.0) % Eos % (Auto) (0.0-4.0) % Baso % (Auto) (0.0-2.0) % Neut # (Auto) (1.8-7.7) th/mm3 Lymph # (Auto) (1.0-4.8) th/mm3 Ocean # (Auto) (0.0-0.9) th/mm3 Eos # (Auto) (0.0-0.4) th/mm3 Baso # (Auto) (0.0-0.2) th/mm3 WBC Differential Differential Comment PT (9.8-11.6) sec INR Ratio APTT (24.3-30.1) sec Sodium (136-145) meq/L Potassium (3.5-5.1) meq/L Chloride (98-107) meq/L Carbon Dioxide (21.0-32.0) meq/L Anion Gap (5-15) meq/L BUN (7-18) mg/dL Creatinine (0.50-1.00) mg/dL Estimated GFR (>89) mL/min POC Glucose (68-110) mg/dl Random Glucose (74-106) mg/dL Lactic Acid 1.4 (0.4-2.0) mmol/L Calcium (8.5-10.1) mg/dL Magnesium (1.5-2.5) mg/dL Total Bilirubin (0.2-1.0) mg/dL AST (15-37) U/L ALT (10-53) U/L Alkaline Phosphatase (45-117) U/L Total Creatine Kinase 37 (26-192) U/L Troponin I (0.02-0.05) ng/mL Total Protein (6.4-8.2) g/dL Albumin (3.4-5.0) g/dL Lipase (73-393) U/L Urine Color (Yellw/Straw) Urine Clarity (Clear) Urine pH (5.0-8.5) Ur Specific [place] (1.002-1.035) Urine Protein (Neg-Trace) mg/dL Urine Glucose (UA) (Negative) mg/dL Urine Ketones (Negative) mg/dL Urine Occult Blood (Negative) Urine Nitrate (Negative) Urine Bilirubin (Negative) Urine Urobilinogen (Less than 2) mg/dL Ur Leukocyte Esterase (Negative) Urine RBC (0-3) /hpf Urine WBC (0-5) /hpf Ur Squamous Epith Cells (0-5) /hpf Hyaline Casts (0-3) /lpf Granular Casts (None) /lpf Urine Mucus (Occasional) /lpf Micro UA Comment Ur Microscopic Review Urine Culture Comments Blood Type O Positive Blood Type Recheck Required Antibody Screen Negative 03/03/18 03/03/18 03/03/18 Range/Units 11:50 12:27 13:56 WBC 14.8 H (4.0-11.0) th/mm3 RBC 3.94 L (4.00-5.30) mil/mm3 Hgb 12.4 (11.6-15.3) gm/dL Hct 37.5 (35.0-46.0) % MCV 95.0 (80.0-100.0) fL MCH 31.5 (27.0-34.0) pg MCHC 33.1 (32.0-36.0) % RDW 15.8 (11.6-17.2) % Plt Count 225 (150-450) th/mm3 MPV 9.0 (7.0-11.0) fL Neut % (Auto) (16.0-70.0) % Lymph % (Auto) (9.0-44.0) % Ocean % (Auto) (0.0-8.0) % Eos % (Auto) (0.0-4.0) % Baso % (Auto) (0.0-2.0) % Neut # (Auto) (1.8-7.7) th/mm3 Lymph # (Auto) (1.0-4.8) th/mm3 Ocean # (Auto) (0.0-0.9) th/mm3 Eos # (Auto) (0.0-0.4) th/mm3 Baso # (Auto) (0.0-0.2) th/mm3 WBC Differential Differential Comment PT (9.8-11.6) sec INR Ratio APTT (24.3-30.1) sec Sodium (136-145) meq/L Potassium (3.5-5.1) meq/L Chloride (98-107) meq/L Carbon Dioxide (21.0-32.0) meq/L Anion Gap (5-15) meq/L BUN (7-18) mg/dL Creatinine (0.50-1.00) mg/dL Estimated GFR (>89) mL/min POC Glucose 110 (68-110) mg/dl Random Glucose (74-106) mg/dL Lactic Acid (0.4-2.0) mmol/L Calcium (8.5-10.1) mg/dL Magnesium (1.5-2.5) mg/dL Total Bilirubin (0.2-1.0) mg/dL AST (15-37) U/L ALT (10-53) U/L Alkaline Phosphatase (45-117) U/L Total Creatine Kinase (26-192) U/L Troponin I (0.02-0.05) ng/mL Total Protein (6.4-8.2) g/dL Albumin (3.4-5.0) g/dL Lipase (73-393) U/L Urine Color Yellow (Yellw/Straw) Urine Clarity Hazy H (Clear) Urine pH 5.0 (5.0-8.5) Ur Specific [place] 1.057 H (1.002-1.035) Urine Protein Negative (Neg-Trace) mg/dL Urine Glucose (UA) Negative (Negative) mg/dL Urine Ketones 20 (Negative) mg/dL Urine Occult Blood Small H (Negative) Urine Nitrate Negative (Negative) Urine Bilirubin Negative (Negative) Urine Urobilinogen Less than 2 (Less than 2) mg/dL Ur Leukocyte Esterase Negative (Negative) Urine RBC 1 (0-3) /hpf Urine WBC 1 (0-5) /hpf Ur Squamous Epith Cells 5 (0-5) /hpf Hyaline Casts 1 (0-3) /lpf Granular Casts 3 (None) /lpf Urine Mucus Few H (Occasional) /lpf Micro UA Comment Culture not ind Ur Microscopic Review Not Reportable Urine Culture Comments Culture not ind Blood Type Blood Type Recheck Antibody Screen 03/03/18 Range/Units 13:56 WBC (4.0-11.0) th/mm3 RBC (4.00-5.30) mil/mm3 Hgb (11.6-15.3) gm/dL Hct (35.0-46.0) % MCV (80.0-100.0) fL MCH (27.0-34.0) pg MCHC (32.0-36.0) % RDW (11.6-17.2) % Plt Count (150-450) th/mm3 MPV (7.0-11.0) fL Neut % (Auto) (16.0-70.0) % Lymph % (Auto) (9.0-44.0) % Ocean % (Auto) (0.0-8.0) % Eos % (Auto) (0.0-4.0) % Baso % (Auto) (0.0-2.0) % Neut # (Auto) (1.8-7.7) th/mm3 Lymph # (Auto) (1.0-4.8) th/mm3 Ocean # (Auto) (0.0-0.9) th/mm3 Eos # (Auto) (0.0-0.4) th/mm3 Baso # (Auto) (0.0-0.2) th/mm3 WBC Differential Differential Comment PT (9.8-11.6) sec INR Ratio APTT (24.3-30.1) sec Sodium (136-145) meq/L Potassium (3.5-5.1) meq/L Chloride (98-107) meq/L Carbon Dioxide (21.0-32.0) meq/L Anion Gap (5-15) meq/L BUN (7-18) mg/dL Creatinine (0.50-1.00) mg/dL Estimated GFR (>89) mL/min POC Glucose (68-110) mg/dl Random Glucose (74-106) mg/dL Lactic Acid 0.7 (0.4-2.0) mmol/L Calcium (8.5-10.1) mg/dL Magnesium (1.5-2.5) mg/dL Total Bilirubin (0.2-1.0) mg/dL AST (15-37) U/L ALT (10-53) U/L Alkaline Phosphatase (45-117) U/L Total Creatine Kinase (26-192) U/L Troponin I (0.02-0.05) ng/mL Total Protein (6.4-8.2) g/dL Albumin (3.4-5.0) g/dL Lipase (73-393) U/L Urine Color (Yellw/Straw) Urine Clarity (Clear) Urine pH (5.0-8.5) Ur Specific [place] (1.002-1.035) Urine Protein (Neg-Trace) mg/dL Urine Glucose (UA) (Negative) mg/dL Urine Ketones (Negative) mg/dL Urine Occult Blood (Negative) Urine Nitrate (Negative) Urine Bilirubin (Negative) Urine Urobilinogen (Less than 2) mg/dL Ur Leukocyte Esterase (Negative) Urine RBC (0-3) /hpf Urine WBC (0-5) /hpf Ur Squamous Epith Cells (0-5) /hpf Hyaline Casts (0-3) /lpf Granular Casts (None) /lpf Urine Mucus (Occasional) /lpf Micro UA Comment Ur Microscopic Review Urine Culture Comments Blood Type Blood Type Recheck Antibody Screen Imaging Data Radiologist's impression: Chest X-Ray 03/03/18 06:43 CONCLUSION: 1. Left IJ central venous catheter with tip in the superior vena cava. No pneumothorax. 2. No acute infiltrate. Scattered parenchymal opacities and bronchiectasis/ scarring not significantly changed. Abdomen/Pelvis CT 03/03/18 06:49 CONCLUSION: 1. Abnormal proximal small bowel with dilatation and wall thickening. There is no definite obstruction. The finding is nonspecific and could be infectious or inflammatory. There are postsurgical changes consistent with partial bowel resection. 2. Small to moderate amount of ascitic fluid greatest in the pelvis. 3. Status post cholecystectomy. ECG Data Attestation: I personally reviewed and interpreted this ECG as follows: Interpretation: Rate: 88 BPM Rhythm: Sinus [place]: Normal Intervals: Normal intervals, no blocks, QTc 405 ms Q waves: V2, aVL T waves: Inverted in aVL, V2 ST segments: No elevations or depressions Impression: Non-specific EKG, no changes as compared to EKG from 09/07/17. Discharge Plan Discharge Disposition Patient Disposition: 30 Still Patient Discharge Condition Condition: Fair Discharge Details Diagnosis: Enteritis, Hypomagnesemia, Acute dehydration, Acute hypotension Physicians Team ED Provider: Blas Birch Primary Care Provider: UNKNOWN, Attending Provider: Keo White Other Providers: Luca Lutz Discharge Interventions Interventions: ED Discharge Assessment Last Done: 03/03/18 12:36 Vital Signs Last Done: 03/03/18 07:30 Status ED Status: Left Department Discharge Information Discharge Date/Time: 03/03/18 12:36 Addendum entered and electronically signed by Blas Birch MD 03/03/18 10:21 : Spoke with Dr. Lutz, recommends that given patient's history of Cristofer-en-Y gastric bypass, consultation the bariatric surgery.
[2018-03-03 07:33] LABS: Baso % (Auto) 0.2 % (0.0-2.0); Eos # (Auto) 0.1 th/mm3 (0.0-0.4); Eos % (Auto) 0.4 % (0.0-4.0); Hematocrit 39.1 % (35.0-46.0); Hemoglobin 12.7 gm/dL (11.6-15.3); Lymph # (Auto) 1.2 th/mm3 (1.0-4.8); Lymph % (Auto) 7.1 % (9.0-44.0); Mean Corpuscular HGB Conc 32.4 % (32.0-36.0); Mean Corpuscular Hemoglobin 30.9 pg (27.0-34.0); Mean Corpuscular Volume 95.4 fL (80.0-100.0); Mean Platelet Volume 9.4 fL (7.0-11.0); Mono # (Auto) 0.9 th/mm3 (0.0-0.9); Mono % (Auto) 5.8 % (0.0-8.0); Neut # (Auto) 14.1 th/mm3 (1.8-7.7); Neut % (Auto) 86.5 % (16.0-70.0); Platelet Count 263 th/mm3 (150-450); Red Cell Distribution Width 15.9 % (11.6-17.2); White Blood Count 16.3 th/mm3 (4.0-11.0)
[2018-03-03 07:44] LABS: Activated Partial Thrombo Time 24.2 sec (24.3-30.1); INR 1.2 Ratio
[2018-03-03 07:47] LABS: Alanine Aminotransferase 9 U/L (10-53); Albumin 2.6 g/dL (3.4-5.0); Anion Gap 11 meq/L (5-15); Aspartate Aminotransferase 7 U/L (15-37); Blood Urea Nitrogen 17 mg/dL (7-18); Carbon Dioxide 20.8 meq/L (21.0-32.0); Chloride 110 meq/L (98-107); Glomerular Filtration Rate 60 mL/min (>89); Glucose,Random 110 mg/dL (74-106); Lipase 39 U/L (73-393); Magnesium 0.8 mg/dL (1.5-2.5); Potassium 3.3 meq/L (3.5-5.1); Sodium 142 meq/L (136-145)
[2018-03-03] MEDS ORDERED: Magnesium Sulfate Inj 2 GM in Sodium Chlor 0.9% Inj 96 ML IV.SIG ONE ×5 (07:50→13:00)
[2018-03-03] MEDS ORDERED: Potassium Chlor 20 mEq Premix 20 MEQ/100 ML PIGGYBACK IV.SIG ONE (07:51)
[2018-03-03 07:52] LABS: Alkaline Phosphatase 60 U/L (45-117); Total Protein 5.7 g/dL (6.4-8.2)
[2018-03-03 07:59] LABS: Creatine Kinase 27 U/L (26-192)
--- NOTE | 2018-03-03 09:25 | CT ---
EXAM DATE: 03/03/2018 8:40 AM EDT AGE/SEX: 47 years / Female INDICATIONS: Left lower quadrant pain for 2 days CLINICAL DATA: This is the patient's initial encounter. Patient reports that signs and symptoms have been present for 2 days and indicates a pain score of 7/10. MEDICAL/SURGICAL HISTORY: Chronic obstructive pulmonary disease. Hypertension. . Bowel resecti on ORAL CONTRAST: No oral contrast ingested. RADIATION DOSE: 4.95 CTDI (mGy) COMPARISON: [facility] – [place], CT ABDOMEN & PELVIS W CONTRAST, 09/07/2017. . TECHNIQUE: Multiple contiguous axial images were obtained through the abdomen and pelvis following b olus infusion of 80 ml Omnipaque 350 (iohexol) nonionic water-soluble contrast as a single exam dos e. No oral contrast ingested. Using automated exposure control and adjustment of the mA and/or kV ac cording to patient size, radiation dose was kept as low as reasonably achievable to obtain optimal di agnostic quality images. DICOM format image data is available electronically for review and comparis on. FINDINGS: Lower Lungs: The visualized lower lungs are clear. Liver: The liver has a homogeneous density without space-occupying lesion. There is no dilation of th e biliary tree. There is a small amount of ascitic fluid along the lateral and inferior liver margin. The patient is status post cholecystectomy. Spleen: Homogeneous density without enlargement. Pancreas: Unremarkable without mass or calcification. Kidneys: Normal in size and shape. No evidence of mass or hydronephrosis. Adrenal Glands: Unremarkable. Aorta: A vena caval filter is again noted. Atherosclerotic changes are present in the aorta with calc ification and no focal aneurysm. Bowel/Mesentery: There is a small hiatal hernia. Postsurgical changes are noted involving the stomac h. There is a moderate amount of ascitic fluid in the pelvis. There are several loops of abnormal mil dly dilated fluid containing proximal small bowel in the left lower quadrant. There is wall thickenin g measuring up to approximately 1 cm. There is no focal mass Abdominal Wall: Intact. Retroperitoneum: No evidence of adenopathy in the retrocrural, para-aortic, or deep pelvic regions. Bladder: Contours are smooth. Reproductive Organs: No abnormal masses or calcifications seen. Inguinal: The inguinal region is unremarkable without evidence of adenopathy. Bony Structures: Unremarkable. CONCLUSION: 1. Abnormal proximal small bowel with dilatation and wall thickening. There is no definite obstructi on. The finding is nonspecific and could be infectious or inflammatory. There are postsurgical change s consistent with partial bowel resection. 2. Small to moderate amount of ascitic fluid greatest in the pelvis. 3. Status post cholecystectomy. Electronically signed by: Flex Buenrostro MD 03/03/2018 9:23 AM EDT
[2018-03-03] MEDS ORDERED: Piperacil/Tazo 4.5 GM Premix 4.5 GM/100 ML BAG IV.SIG ONE (09:48)
[2018-03-03] MEDS ORDERED: Acetaminophen 325 MG Tablet PO PRN (10:01)
[2018-03-03] MEDS ORDERED: Bisacodyl 10 MG Supp RECTAL PRN (10:01)
[2018-03-03] MEDS ORDERED: Potassium Phosphate Inj 30 MMOL in Sodium Chlor 0.9% Inj 250 ML IV.SIG PRN (10:01)
[2018-03-03] MEDS ORDERED: Potassium Phosphate 500 MG Soluble Tablet PO PRN ×2 (10:01)
[2018-03-03] MEDS ORDERED: Sodium Phosphate Inj 30 MMOL in Sodium Chlor 0.9% Inj 250 ML IV.SIG PRN (10:01)
[2018-03-03] MEDS ORDERED: Potassium Chlor 40 mEq Premix 40 MEQ/100 ML PIGGYBACK IV.SIG PRN ×2 (10:01)
[2018-03-03] MEDS ORDERED: Morphine Sulfate Inj 2 MG/ML Vial IV.PUSH PRN (10:01)
[2018-03-03] MEDS ORDERED: Magnesium Sulfate Inj 2 GM in Sodium Chlor 0.9% Inj 96 ML IV.SIG PRN (10:01)
[2018-03-03] MEDS ORDERED: Potassium Chlor 20 mEq Premix 20 MEQ/100 ML PIGGYBACK IV.SIG PRN ×2 (10:01)
[2018-03-03] MEDS ORDERED: Magnesium Oxide 400 MG Tablet PO PRN (10:01)
[2018-03-03] MEDS ORDERED: Potassium Chloride 25 MEQ Effervescent Tablet PO PRN (10:01)
[2018-03-03] MEDS ORDERED: Magnesium Sulfate Inj 4 GM in Sodium Chlor 0.9% Inj 92 ML IV.SIG PRN (10:01)
[2018-03-03] MEDS ORDERED: Dextrose 50% in Water 50 ML Vial IV.PUSH PRN (10:04)
--- NOTE | 2018-03-03 10:59 | P.HPCC ---
History of Present Illness Service: Critical care medicine Primary Care Physician: UNKNOWN Chief Complaint: Abdominal pain History of Present Illness: This is a 47-year-old female. 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 Roy 2014, depression, gastroesophageal disease, history of tobaccoism and prior alcoholism. Patient presents to [facility] with a 2-day history of left lower quadrant abdominal pain. Poor appetite. Patient states the pain is currently a 10 out of 10. Without radiation. Sharp in nature. Patient was hypotensive on arrival probably due to dehydration and received 2 L normal saline. A central line has been placed in the left IJ without complication. Patient did have a leukocytosis, low potassium and low magnesium. CT scan of pelvis revealed a hiatal hernia. Small bowel edema probably 1 cm. Left lower quadrant. Surgery has been counseled. Lactate was normal at 1.4. Her electrolytes are currently being repleted. She still complaining of abdominal pain but does not appear septic the present time. We are asked to admit with consultation to gastric surgery in place - Diagnosis (1) Abdominal pain (2) Leukocytosis (3) Hypokalemia (4) Hypomagnesemia (5) Hiatal hernia (6) Depression (7) Gastroesophageal reflux disease (8) History of DVT (deep vein thrombosis) Inpatient Certification: I certify that the inpatient services were ordered in accordance with Medicare regulations governing the order. This includes certification that hospital inpatient services are reasonable and necessary and in the case of services not specified as inpatient-only under 42 CFR 419.22(n), that they are appropriately provided as inpatient services in accordance to with the 2-midnight benchmark under 43 CFR 412.3(e) Estimated Total Length of Stay (Days): 3 Plans for Post Hospital Care: Not yet determined Review of Systems Constitutional: Reports weakness, Reports weight loss, Denies anorexia, Denies body ache(s), Denies chills, Denies headache(s), Denies weight gain Eyes: Denies blind spots, Denies blurry vision Ears, Nose, Mouth, and Throat: Denies abnormal hearing, Denies poor balance, Denies post nasal drip Cardiovascular: Denies chest pain, Denies shortness of breath with activity, Denies shortness of breath when lying down, Denies shortness of breath causing sudden awakening Respiratory: Reports pain on inspiration, Denies cough, Denies shortness of breath with activity Gastrointestinal: Reports abdominal pain, Denies heartburn, Denies nausea, Denies vomiting Genitourinary: Denies urinary urgency Musculoskeletal: Reports back pain Skin/Breast: Reports dry skin, Denies lesions Neurologic: Denies abnormal movements, Denies restless legs Psychiatric: Reports depression, Denies anxiety, Denies confusion Endocrine: Denies cold intolerance Hematologic/Lymphatic: Denies easy bleeding Allergic/Immunologic: Denies GI upset with certain foods PMFSH - History History Provided By: Patient - Medical History Medical History: Medical History (Last Reviewed 03/03/18 @ 10:48 by Keo White MD) COPD (chronic obstructive pulmonary disease) Gastroesophageal reflux disease HTN (hypertension) Perforated bowel - Surgical History Surgical History: Surgical History (Last Updated 03/03/18 @ 10:50 by Keo White MD) History of Cristofer-en-Y gastric bypass History of bowel resection S/P IVC filter S/P lobectomy of lung Status post wrist surgery - Family History Family History: Family History (Last Updated 03/03/18 @ 10:52 by Keo White MD) Father Family history of hypertension Family history of hyperlipidemia Mother Family history of chronic kidney disease - Social History I have reviewed the patient's Social History: Yes - Tobacco History Second Hand Smoke Exposure: No Tobacco Use In Past 30 Days: Yes Smoking Status: Current every day smoker Tobacco Type: Cigarettes - Alcohol History How Often Do You Have a Drink Containing Alcohol: Never - Substance Use History Substance History: No History of Abuse - Travel History Recent Travel in the [place] Within the Last 8 Weeks: No Recent Travel Out of the Country Within the Last 8 Weeks: No - Immunization History Tetanus Immunization: <5 Years Medications and Allergies Active Medications: Active Medications Acetaminophen (Tylenol) 650 mg PO Q6H PRN PRN Reason: FEVER Hydrocodone Bitart/Acetaminophen (Lamoure 5/325) 1 tab PO Q4H PRN PRN Reason: PAIN SCALE 1 TO 5 Al Hydroxide/Mg Hydroxide (Milk Of Magnsekou Liq) 30 ml PO Q12H PRN PRN Reason: Mild Constipation Albuterol (Albuterol Neb (Peña)) 2.5 mg NEB Q2HR NEB PRN PRN Reason: SHORTNESS OF BREATH/WHEEZING Albuterol (Duoneb Neb (Prn)) 1 ampul NEB Q6HR NEB EPÑA Bisacodyl (Dulcolax Supp) 10 mg RECTAL DAILY PRN PRN Reason: SEVERE CONSITIPATION Chlorhexidine Gluconate (Chlorhexidine 2% Cloth) 3 pack TOPICAL DAILY@0400 PEÑA Stop: 03/09/18 03:59 Chlorhexidine Gluconate (Chlorhexidine 2% Cloth) 3 pack TOPICAL DAILY@0400 PRN PRN Reason: Extra cloth needed Stop: 03/09/18 03:59 Dextrose (D50w Vial) 50 ml IV.PUSH UNSCH PRN PRN Reason: PER HYPOGLYCEMIA PROTOCOL Glucagon (Glucagon Inj) 1 mg OTHER PRN PRN PRN Reason: for Hypoglycemia Protocol Heparin Sodium (Porcine) (Heparin Inj) 5,000 units SQ Q12H [facility] Magnesium Sulfate 2 gm/ Sodium (Chloride) 100 mls @ 50 mls/hr IV.SIG ONCE ONE Stop: 03/03/18 11:59 Magnesium Sulfate 4 gm/ Sodium (Chloride) 100 mls @ 50 mls/hr IV.SIG UNSCH PRN PRN Reason: For Magnesium 0.9 - 1.1 mg/dL Magnesium Sulfate 2 gm/ Sodium (Chloride) 100 mls @ 50 mls/hr IV.SIG UNSCH PRN PRN Reason: For Magnesium 1.2 - 1.6 mg/dL Potassium Chloride (Kcl 40 Meq Premix Inj) 40 meq in 100 mls @ 50 mls/hr IV.SIG Q2H PRN PRN Reason: For Potassium 2.8 - 3.2 mEq/L Potassium Chloride (Kcl 20 Meq Premix Inj) 20 meq in 100 mls @ 50 mls/hr IV.SIG Q2H PRN PRN Reason: For Potassium 3.3 - 3.5 mEq/L Potassium Chloride (Kcl 40 Meq Premix Inj) 40 meq in 100 mls @ 25 mls/hr IV.SIG UNSCH PRN PRN Reason: For Potassium 3.3 - 3.5 mEq/L Potassium Chloride (Kcl 20 Meq Premix Inj) 20 meq in 100 mls @ 50 mls/hr IV.SIG Q2H PRN PRN Reason: For Potassium 2.8 - 3.2 mEq/L Potassium Phosphate 30 mmol/ (Sodium Chloride) 260 mls @ 42 mls/hr IV.SIG UNSCH PRN PRN Reason: SEE LABEL COMMENTS Sodium Phosphate 30 mmol/ (Sodium Chloride) 260 mls @ 42 mls/hr IV.SIG UNSCH PRN PRN Reason: For Phosphorus < 2.5 mg/dL Sodium Chloride (Ns Inj) 1,000 mls @ 84 mls/hr IV.CONT .[id number] PEÑA Insulin Aspart (Novolog Insulin Correctional Sugar Inj) 0 unit SQ Q6HR PEÑA; Protocol Lactulose (Lactulose Liq) 30 ml PO DAILY PRN PRN Reason: SEVERE CONSITIPATION Magnesium Oxide (Mag-Ox) 800 mg PO UNSCH PRN PRN Reason: For Magnesium 1.2 - 1.6 mg/dL Morphine Sulfate (Morphine Inj) 2 mg IV.PUSH Q2H PRN PRN Reason: PAIN SCALE 6 TO 10 Last Admin: 03/03/18 10:45 Dose: 2 mg Ondansetron HCl (Zofran Inj) 4 mg IV.PUSH Q6H PRN PRN Reason: NAUSEA OR VOMITING Pantoprazole Sodium (Protonix Inj) 40 mg IV.PUSH DAILY [facility] Potassium Bicarb/Potassium Chloride (K-Lyte Cl Eff) 50 meq PO UNSCH PRN PRN Reason: For Potassium 3.3 - 3.5 mEq/L Potassium Phosphate (K-Phos Original) 2,000 mg PO Q4H PRN PRN Reason: Phosphorus Less Than 2.5 mg/dL Potassium Phosphate (K-Phos Original) 2,000 mg PO UNSCH PRN PRN Reason: SEE LABEL COMMENTS Senna/Docusate Sodium (Nona-Colace) 1 tab PO BID [facility] Sennosides (Senokot) 17.2 mg PO Q12H PRN PRN Reason: Moderate Constipation Sodium Chloride (Ns Flush) 2 ml IV.FLUSH PRN PRN PRN Reason: FLUSH AFTER USING IV ACCESS Sodium Chloride (Ns Flush) 2 ml IV.FLUSH BID [facility] Sodium Chloride (Ns Flush) 2 ml IV.FLUSH PRN PRN PRN Reason: FLUSH AFTER USING IV ACCESS Allergies Allergy/AdvReac Type Severity Reaction Status Date / Time No Known Allergies Unknown Uncoded 04/17/17 20:29 Home Medications Medication Instructions Recorded Confirmed Type albuterol sulfate [Ventolin HFA] 2 puff INHALATION Q4-6H PRN 03/03/18 03/03/18 History lisinopril 20 mg PO DAILY 03/03/18 03/03/18 History pantoprazole [Protonix] 40 mg PO BID 03/03/18 03/03/18 History Results - Labs CBC & Chem 7: 03/03/18 06:55 03/03/18 06:55 Labs: Short CBC 03/03/18 Range/Units 06:55 WBC 16.3 H (4.0-11.0) th/mm3 Hgb 12.7 (11.6-15.3) gm/dL Hct 39.1 (35.0-46.0) % Plt Count 263 (150-450) th/mm3 BMP 03/03/18 06:55 Sodium 142 Potassium 3.3 L Chloride 110 H Carbon Dioxide 20.8 L BUN 17 Creatinine 1.00 Calcium 9.0 Cardiac Enzymes 03/03/18 Range/Units 06:55 Total Creatine Kinase 27 (26-192) U/L Troponin I Less than 0.02 L (0.02-0.05) ng/mL Liver Function 03/03/18 Range/Units 06:55 Total Bilirubin 0.5 (0.2-1.0) mg/dL AST 7 L (15-37) U/L ALT 9 L (10-53) U/L Alkaline Phosphatase 60 (45-117) U/L Albumin 2.6 L (3.4-5.0) g/dL - Imaging Impressions Chest X-Ray 03/03/18 06:43 CONCLUSION: 1. Left IJ central venous catheter with tip in the superior vena cava. No pneumothorax. 2. No acute infiltrate. Scattered parenchymal opacities and bronchiectasis/ scarring not significantly changed. Abdomen/Pelvis CT 03/03/18 06:49 CONCLUSION: 1. Abnormal proximal small bowel with dilatation and wall thickening. There is no definite obstruction. The finding is nonspecific and could be infectious or inflammatory. There are postsurgical changes consistent with partial bowel resection. 2. Small to moderate amount of ascitic fluid greatest in the pelvis. 3. Status post cholecystectomy. Exam Vital signs: Vital Signs 03/03/18 07:15 03/03/18 07:16 03/03/18 07:30 Temperature 97.7 F Pulse Rate 84 83 86 Respiratory Rate 16 20 18 Blood Pressure 102/57 L 115/63 106/63 Pulse Oximetry 96 92 L 100 03/03/18 09:15 03/03/18 10:01 Temperature Pulse Rate 84 Respiratory Rate 18 19 Blood Pressure 120/70 Pulse Oximetry 100 Intake & Output 03/02/18 03/03/18 03/03/18 18:59 06:59 18:59 Intake Total 2099 Balance 2099 Weight 47.627 kg Intake: IV 2099 KCl 20 mEq Premix Inj 20 meq In 100 / 100 100 ml @ 50 mls/hr IV.SIG ONCE ONE Rx#:[id number] NS Inj 1,000 ML @ Wide Open IV. 1999 SIG BOLUS ONE Rx#:[id number] - Constitutional mild distress - Routine HEENT Exam Head: Present: normocephalic, atraumatic Eye: Present: EOMI, PERRL, normal accommodation ENT: Present: mucous membranes moist - Routine Neck Exam Present: supple, full ROM. Absent: JVD - Routine Chest/Breast/Axilla Exam Chest wall: Absent: tenderness Breast: Absent: tenderness Axillae: Absent: lymphadenopathy - Routine Respiratory Exam Present: CTA bilaterally. Absent: wheezes - Routine Cardiovascular Exam Present: S1, S2, tachycardia. Absent: murmur - Routine Abdominal Exam Present: soft, tenderness, rebound, guarding. Absent: firm, rigid, mass, hernia - Routine Extremities Exam Absent: cyanosis, clubbing, edema - Routine Skin Exam Present: intact - Routine Neurological Exam Present: alert, oriented X3, CN II-XII intact. Absent: sensory deficit, motor deficit Septic Shock Reassessment Septic shock perfusion: reassessment completed Caprini VTE Risk Assessment Caprini VTE Risk Assessment: Moderate/High Risk (score >= 2) Caprini Risk Assessment Model: Point Value = 1 Point Value = 2 Point Value = 3 Point Value = 5 Age 41-60 Minor surgery BMI > 25 kg/m2 Swollen legs Varicose veins or History of unexplained or recurrent spontaneous Oral contraceptives or hormone replacement Sepsis (< 1 month) Serious lung disease, including pneumonia (< 1 month) Abnormal pulmonary function Acute myocardial infarction Congestive heart failure (< 1 month) History of inflammatory bowel disease Medical patient at bed rest Age 61-74 Arthroscopic surgery Major open surgery (> 45 min) Laparoscopic surgery (> 45 min) Malignancy Confined to bed (> 72 hours) Immobilizing plaster cast Central venous access Age >= 75 History of VTE Family history of VTE Factor V Leiden Prothrombin [id number] Lupus anticoagulant Anticardiolipin antibodies Elevated serum homocysteine Heparin-induced thrombocytopenia Other congenital or acquired thrombophilia Stroke (< 1 month) Elective arthroplasty Hip, pelvis, or leg fracture Acute spinal cord injury (< 1 month) Prophylaxis Regimen: Total Risk Factor Score Risk Level Prophylaxis Regimen 0-1 Low Early ambulation 2 Moderate Order ONE of the following: *Sequential Compression Device (SCD) *Heparin 5000 units SQ BID 3-4 Higher Order ONE of the following medications: *Heparin 5000 units SQ TID *Enoxaparin/Lovenox 40 mg SQ daily (WT < 150 kg, CrCl > 30 mL/min) *Enoxaparin/Lovenox 30 mg SQ daily (WT < 150 kg, CrCl > 10-29 mL/min) *Enoxaparin/Lovenox 30 mg SQ BID (WT < 150 kg, CrCl > 30 mL/min) AND/OR *Sequential Compression Device (SCD) 5 or more Highest Order ONE of the following medications: *Heparin 5000 units SQ TID (Preferred with Epidurals) *Enoxaparin/Lovenox 40 mg SQ daily (WT < 150 kg, CrCl > 30 mL/min) *Enoxaparin/Lovenox 30 mg SQ daily (WT < 150 kg, CrCl > 10-29 mL/min) *Enoxaparin/Lovenox 30 mg SQ BID (WT < 150 kg, CrCl > 30 mL/min) AND *Sequential Compression Device (SCD) Assessment and Plan - Problem List (1) Abdominal pain Code(s): R10.9 - Unspecified abdominal pain Status: Acute (2) Leukocytosis Code(s): D72.829 - Elevated white blood cell count, unspecified Status: Acute (3) Hypokalemia Code(s): E87.6 - Hypokalemia Status: Acute (4) Hypomagnesemia Code(s): E83.42 - Hypomagnesemia Status: Acute (5) Hiatal hernia Code(s): K44.9 - Diaphragmatic hernia without obstruction or gangrene Status: Chronic (6) Depression Code(s): F32.9 - Major depressive disorder, single episode, unspecified Status : Chronic (7) Gastroesophageal reflux disease Code(s): K21.9 - Gastro-esophageal reflux disease without esophagitis Status: Chronic (8) History of DVT (deep vein thrombosis) Code(s): Z86.718 - Personal history of other venous thrombosis and embolism Status: Chronic - Assessment and Plan Plan: Neuro/Psych: History of EtOH Depressive disorder NOS Acetaminophen 650 p.o. every 6 hours as needed fever Hydrocodone/acetaminophen 5/325 1 tablet every 4 hours as needed pain 1 through 5 Morphine sulfate 2 mg IV every 2 hours as needed 6-10 CV: Initial presentation with hypotension History of hypertension Received 2 L normal saline in ED. Lactate is currently 1.4 Currently normal saline 84 cc an hour. Monitor with telemetry in ICU Resp: Ongoing tobaccoism Nasal cannula to maintain saturations greater than or equal to 92% Incentive spirometry while awake Tobacco sensation self-evaluation booklet will be provided when appropriate Albuterol/ipratropium aerosols every 6 hours with albuterol aerosols every 2 hours as needed dyspnea Follow chest x-ray in a.m. 03/04 GI: Abdominal pain Hiatal hernia Hypoalbuminemia 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 1 cm small bowel wall edema. Dr. Lutz was contacted recommended bariatric surgery who is currently on-call. Serial abdominal examinations Lactate was 1.4 N.p.o. status pantoprazole 40 mg IV twice daily for GI prophylaxis/home medication Docusate serum/senna 1 tablet twice daily for bowel regimen : Straight catheterization every 6 hours as needed Endo: Sliding scale insulin Accu-Cheks to maintain euglycemia/aspart insulin every 6 hours low regimen Check TSH Renal: Creatinine currently within normal limits Accurate I's and O's Monitor urine output Heme: Leukocytosis Monitor CBC daily. Follow trends. No indication for transfusion of blood products at this time ID: Monitor for signs and since hematology infection FEN: Acute hypomagnesia Acute hypokalemia Replace electrolytes per ICU electrolyte protocol. Recheck at 1800 hrs. MSK: Physical therapy evaluate and treat Access -Utilize peripheral IV. Central line if indicated Prophylaxis -GI -pantoprazole -DVT -SCD/heparin subcu Level 3 admission Code Status: Full code Discussed Condition With: Dr. Birch, patient. Care plan discussed and all questions answered. (1) Abdominal pain Qualifiers: Abdominal location: left lower quadrant Qualified Code(s): R10.32 - Left lower quadrant pain (2) Leukocytosis Qualifiers: Leukocytosis type: unspecified Qualified Code(s): D72.829 - Elevated white blood cell count, unspecified (6) Depression Qualifiers: Depression Type: major depressive disorder Major depression recurrence: recurrent Active/Remission status: remission status unspecified Qualified Code (s): F33.9 - Major depressive disorder, recurrent, unspecified
[2018-03-03] MEDS ORDERED: Norepinephrine Inj 16 MG in Sodium Chlor 0.9% Inj 234 ML IV.CONT PRN (11:14)
[2018-03-03] MEDS: Sod Chloride 0.9% Inj 1,000 ML IV.CONT SCH (12:07)
[2018-03-03 12:24] LABS: Bilirubin,Urine Negative (Negative); Clarity,Urine Hazy (Clear); Color,Urine Yellow (Yellw/Straw); Glucose,Urine (UA) Negative (Negative); Hyaline Casts,Urine 1 /lpf (0-3); Leukocyte Esterase,Urine Negative (Negative); Mucus,Urine Few /lpf (Occasional); Nitrite,Urine Negative (Negative); Specific Gravity,Urine 1.057 (1.002-1.035); Squamous Epithelial Cell,Urine 5 /hpf (0-5)
[2018-03-03] MEDS ORDERED: HYDROmorphone PF Inj 0.5 MG/0.5 ML Syringe IV.PUSH PRN (12:51)
--- NOTE | 2018-03-03 12:54 | P.CONGS ---
[facility] Gen Surgery Consult Note Consult date: 03/03/18 Narrative: The patient is a 47-year-old female who developed burning gnawing epigastric abdominal pain 3 days ago which persisted and worsened until it was very severe last night when she presented to the hospital. She has a notable history of gastrojejunostomy for perforated ulcer in 2010 followed by exploratory laparotomy and repair of perforated ulcer at gastrojejunostomy [place] [address] Kinsey. She had transient hypotension in the emergency department until volume resuscitation. White blood count is 16,000. CT abdomen pelvis shows abnormal proximal small bowel with wall thickening. Review of Systems All other systems reviewed negative except as stated in [facility] - History History Provided By: Patient - Medical History Medical History: Medical History (Last Reviewed 03/03/18 @ 10:48 by Keo White MD) COPD (chronic obstructive pulmonary disease) Gastroesophageal reflux disease HTN (hypertension) Perforated bowel - Surgical History Surgical History: Surgical History (Last Updated 03/03/18 @ 10:50 by Keo White MD) History of Cristofer-en-Y gastric bypass History of bowel resection S/P IVC filter S/P lobectomy of lung Status post wrist surgery - Family History Family History: Family History (Last Updated 03/03/18 @ 10:52 by Keo White MD) Father Family history of hypertension Family history of hyperlipidemia Mother Family history of chronic kidney disease - Tobacco History Second Hand Smoke Exposure: Yes Tobacco Use In Past 30 Days: Yes Smoking Status: Current every day smoker Tobacco Type: Cigarettes - Alcohol History How Often Do You Have a Drink Containing Alcohol: Monthly or less - Substance Use History Substance History: No History of Abuse - Travel History Recent Travel in the [place] Within the Last 8 Weeks: No Recent Travel Out of the Country Within the Last 8 Weeks: No - Immunization History Tetanus Immunization: <5 Years Medications and Allergies Active Medications: Active Medications Acetaminophen (Tylenol) 650 mg PO Q6H PRN PRN Reason: FEVER Hydrocodone Bitart/Acetaminophen ([place] 5/325) 1 tab PO Q4H PRN PRN Reason: PAIN SCALE 1 TO 5 Al Hydroxide/Mg Hydroxide (Milk Of Magnsekou Liq) 30 ml PO Q12H PRN PRN Reason: Mild Constipation Albuterol (Albuterol Neb (Prn)) 2.5 mg NEB Q2HR NEB PRN PRN Reason: SHORTNESS OF BREATH/WHEEZING Albuterol (Duoneb Neb (Peña)) 1 ampul NEB Q6HR NEB [facility] Bisacodyl (Dulcolax Supp) 10 mg RECTAL DAILY PRN PRN Reason: SEVERE CONSITIPATION Chlorhexidine Gluconate (Chlorhexidine 2% Cloth) 3 pack TOPICAL DAILY@0400 PEÑA Stop: 03/09/18 03:59 Chlorhexidine Gluconate (Chlorhexidine 2% Cloth) 3 pack TOPICAL DAILY@0400 PRN PRN Reason: Extra cloth needed Stop: 03/09/18 03:59 Dextrose (D50w Vial) 50 ml IV.PUSH UNSCH PRN PRN Reason: PER HYPOGLYCEMIA PROTOCOL Glucagon (Glucagon Inj) 1 mg OTHER UNSCH PRN PRN Reason: for Hypoglycemia Protocol Heparin Sodium (Porcine) (Heparin Inj) 5,000 units SQ Q12H [facility] Magnesium Sulfate 2 gm/ Sodium (Chloride) 100 mls @ 50 mls/hr IV.SIG ONCE ONE Stop: 03/03/18 14:59 Magnesium Sulfate 4 gm/ Sodium (Chloride) 100 mls @ 50 mls/hr IV.SIG UNSCH PRN PRN Reason: For Magnesium 0.9 - 1.1 mg/dL Magnesium Sulfate 2 gm/ Sodium (Chloride) 100 mls @ 50 mls/hr IV.SIG UNSCH PRN PRN Reason: For Magnesium 1.2 - 1.6 mg/dL Potassium Chloride (Kcl 40 Meq Premix Inj) 40 meq in 100 mls @ 50 mls/hr IV.SIG Q2H PRN PRN Reason: For Potassium 2.8 - 3.2 mEq/L Potassium Chloride (Kcl 20 Meq Premix Inj) 20 meq in 100 mls @ 50 mls/hr IV.SIG Q2H PRN PRN Reason: For Potassium 3.3 - 3.5 mEq/L Potassium Chloride (Kcl 40 Meq Premix Inj) 40 meq in 100 mls @ 25 mls/hr IV.SIG UNSCH PRN PRN Reason: For Potassium 3.3 - 3.5 mEq/L Potassium Chloride (Kcl 20 Meq Premix Inj) 20 meq in 100 mls @ 50 mls/hr IV.SIG Q2H PRN PRN Reason: For Potassium 2.8 - 3.2 mEq/L Potassium Phosphate 30 mmol/ (Sodium Chloride) 260 mls @ 42 mls/hr IV.SIG UNSCH PRN PRN Reason: SEE LABEL COMMENTS Sodium Phosphate 30 mmol/ (Sodium Chloride) 260 mls @ 42 mls/hr IV.SIG UNSCH PRN PRN Reason: For Phosphorus < 2.5 mg/dL Sodium Chloride (Ns Inj) 1,000 mls @ 84 mls/hr IV.CONT .[id number] [facility] Last Admin: 03/03/18 12:07 Dose: 84 mls/hr Multivitamins 10 ml/ Thiamine HCl 100 mg/ Folic Acid 1 mg/Sodium Chloride 511.2 mls @ 125 mls/hr IV.SIG Q24H PEÑA Stop: 03/05/18 17:06 Norepinephrine Bitartrate 16 (mg/ Sodium Chloride) 250 mls @ 1.87 mls/hr IV.CONT TITRATE PRN; Protocol PRN Reason: See Protocol Piperacillin/Tazobactam/Dextrose (Zosyn 4.5 Gm Premix) 4.5 gm in 100 mls @ 200 mls/hr IV.SIG Q6H PEÑA Insulin Aspart (Novolog Insulin Correctional Sugar Inj) 0 unit SQ Q6HR PEÑA; Protocol Lactulose (Lactulose Liq) 30 ml PO DAILY PRN PRN Reason: SEVERE CONSITIPATION Magnesium Oxide (Mag-Ox) 800 mg PO UNSCH PRN PRN Reason: For Magnesium 1.2 - 1.6 mg/dL Morphine Sulfate (Morphine Inj) 2 mg IV.PUSH Q2H PRN PRN Reason: PAIN SCALE 6 TO 10 Last Admin: 03/03/18 10:45 Dose: 2 mg Ondansetron HCl (Zofran Inj) 4 mg IV.PUSH Q6H PRN PRN Reason: NAUSEA OR VOMITING Pantoprazole Sodium (Protonix Inj) 40 mg IV.PUSH Q12H PEÑA Potassium Bicarb/Potassium Chloride (K-Lyte Cl Eff) 50 meq PO UNSCH PRN PRN Reason: For Potassium 3.3 - 3.5 mEq/L Potassium Phosphate (K-Phos Original) 2,000 mg PO Q4H PRN PRN Reason: Phosphorus Less Than 2.5 mg/dL Potassium Phosphate (K-Phos Original) 2,000 mg PO UNSCH PRN PRN Reason: SEE LABEL COMMENTS Senna/Docusate Sodium (Nona-Colace) 1 tab PO BID [facility] Sennosides (Senokot) 17.2 mg PO Q12H PRN PRN Reason: Moderate Constipation Sodium Chloride (Ns Flush) 2 ml IV.FLUSH BID PEÑA Sodium Chloride (Ns Flush) 2 ml IV.FLUSH UNSCH PRN PRN Reason: FLUSH AFTER USING IV ACCESS Terbutaline Sulfate (Brethine Inj) 1 mg SQ UNSCH PRN PRN Reason: For Extravasation Allergies Allergy/AdvReac Type Severity Reaction Status Date / Time No Known Allergies Unknown Uncoded 04/17/17 20:29 Home Medications Medication Instructions Recorded Confirmed Type albuterol sulfate [Ventolin HFA] 2 puff INHALATION Q4-6H PRN 03/03/18 03/03/18 History lisinopril 20 mg PO DAILY 03/03/18 03/03/18 History pantoprazole [Protonix] 40 mg PO BID 03/03/18 03/03/18 History Exam Vital signs: Vital Signs 03/03/18 07:15 03/03/18 07:16 03/03/18 07:30 Temperature 97.7 F Pulse Rate 84 83 86 Respiratory Rate 16 20 18 Blood Pressure 102/57 L 115/63 106/63 Pulse Oximetry 96 92 L 100 03/03/18 09:15 03/03/18 10:01 03/03/18 11:00 Temperature Pulse Rate 84 80 Respiratory Rate 18 19 17 Blood Pressure 120/70 112/64 Pulse Oximetry 100 95 03/03/18 11:10 03/03/18 12:11 Temperature Pulse Rate 78 Respiratory Rate 19 Blood Pressure 105/61 Pulse Oximetry 98 96 Intake & Output 03/02/18 03/03/18 03/03/18 18:59 06:59 18:59 Intake Total 2300 / 2300 Balance 2300 / 2300 Weight 47.627 kg Intake: IV 2300 / 2300 Magnesium Sulfate Inj 2 GM In 100 / 100 NS Inj 96 ML @ 50 mls/hr IV.SIG ONCE ONE Rx#:[id number] Zosyn 4.5 GM Premix 4.5 gm In 100 / 100 100 ml @ 200 mls/hr IV.SIG ONCE ONE Rx#:[id number] KCl 20 mEq Premix Inj 20 meq In 100 / 100 100 ml @ 50 mls/hr IV.SIG ONCE ONE Rx#:[id number] NS Inj 1,000 ML @ Wide Open IV. 1999 SIG BOLUS ONE Rx#:[id number] Narrative: GENERAL: Awake and alert. Cooperative. Appears to be in pain. HEAD: Normocephalic. Atraumatic. EYES: Pupils equal round and reactive to light bilaterally. No scleral icterus. ENT: Moist oral mucosa. NECK: Trachea midline. CHEST: Nonlabored breathing. No respiratory distress. CARDIOVASCULAR: Regular rate and rhythm. ABDOMEN: Deep scar midline. Positive rebound tenderness in right lower quadrant and left lower quadrant. Severe tenderness throughout the lower abdomen and the left upper quadrant. EXTREMITIES: No cyanosis or edema. SKIN: Warm, dry, nonjaundiced. Results - Labs 03/03/18 13:56 03/03/18 06:55 Laboratory Results - last 24 hr 03/03/18 03/03/18 03/03/18 06:55 06:55 06:55 WBC 16.3 H RBC 4.10 Hgb 12.7 Hct 39.1 MCV 95.4 MCH 30.9 MCHC 32.4 RDW 15.9 Plt Count 263 MPV 9.4 Neut % (Auto) 86.5 H Lymph % (Auto) 7.1 L [place] % (Auto) 5.8 Eos % (Auto) 0.4 Baso % (Auto) 0.2 Neut # (Auto) 14.1 H Lymph # (Auto) 1.2 [place] # (Auto) 0.9 Eos # (Auto) 0.1 Baso # (Auto) 0.0 WBC Differential . Differential Comment Auto diff final PT 12.0 H INR 1.2 APTT 24.2 L Sodium 142 Potassium 3.3 L Chloride 110 H Carbon Dioxide 20.8 L Anion Gap 11 BUN 17 Creatinine 1.00 Estimated GFR 60 L Random Glucose 110 H Lactic Acid Calcium 9.0 Magnesium 0.8 L Total Bilirubin 0.5 AST 7 L ALT 9 L Alkaline Phosphatase 60 Total Creatine Kinase 27 Troponin I Less than 0.02 L Total Protein 5.7 L Albumin 2.6 L Lipase 39 L Urine Color Urine Clarity Urine pH Ur Specific [place] Urine Protein Urine Glucose (UA) Urine Ketones Urine Occult Blood Urine Nitrate Urine Bilirubin Urine Urobilinogen Ur Leukocyte Esterase Urine RBC Urine WBC Ur Squamous Epith Cells Hyaline Casts Granular Casts Urine Mucus Micro UA Comment Ur Microscopic Review Urine Culture Comments Blood Type Blood Type Recheck Antibody Screen 03/03/18 03/03/18 03/03/18 06:55 06:55 11:48 WBC RBC Hgb Hct MCV MCH MCHC RDW Plt Count MPV Neut % (Auto) Lymph % (Auto) [place] % (Auto) Eos % (Auto) Baso % (Auto) Neut # (Auto) Lymph # (Auto) [place] # (Auto) Eos # (Auto) Baso # (Auto) WBC Differential Differential Comment PT INR APTT Sodium Potassium Chloride Carbon Dioxide Anion Gap BUN Creatinine Estimated GFR Random Glucose Lactic Acid 1.4 Calcium Magnesium Total Bilirubin AST ALT Alkaline Phosphatase Total Creatine Kinase 37 Troponin I Total Protein Albumin Lipase Urine Color Urine Clarity Urine pH Ur Specific [place] Urine Protein Urine Glucose (UA) Urine Ketones Urine Occult Blood Urine Nitrate Urine Bilirubin Urine Urobilinogen Ur Leukocyte Esterase Urine RBC Urine WBC Ur Squamous Epith Cells Hyaline Casts Granular Casts Urine Mucus Micro UA Comment Ur Microscopic Review Urine Culture Comments Blood Type O Positive Blood Type Recheck Required Antibody Screen Negative 03/03/18 11:50 WBC RBC Hgb Hct MCV MCH MCHC RDW Plt Count MPV Neut % (Auto) Lymph % (Auto) [place] % (Auto) Eos % (Auto) Baso % (Auto) Neut # (Auto) Lymph # (Auto) [place] # (Auto) Eos # (Auto) Baso # (Auto) WBC Differential Differential Comment PT INR APTT Sodium Potassium Chloride Carbon Dioxide Anion Gap BUN Creatinine Estimated GFR Random Glucose Lactic Acid Calcium Magnesium Total Bilirubin AST ALT Alkaline Phosphatase Total Creatine Kinase Troponin I Total Protein Albumin Lipase Urine Color Yellow Urine Clarity Hazy H Urine pH 5.0 Ur Specific [place] 1.057 H Urine Protein Negative Urine Glucose (UA) Negative Urine Ketones 20 Urine Occult Blood Small H Urine Nitrate Negative Urine Bilirubin Negative Urine Urobilinogen Less than 2 Ur Leukocyte Esterase Negative Urine RBC 1 Urine WBC 1 Ur Squamous Epith Cells 5 Hyaline Casts 1 Granular Casts 3 Urine Mucus Few H Micro UA Comment Culture not ind Ur Microscopic Review Not Reportable Urine Culture Comments Culture not ind Blood Type Blood Type Recheck Antibody Screen - Imaging Imaging: ITS Impressions Chest X-Ray 03/03/18 06:43 CONCLUSION: 1. Left IJ central venous catheter with tip in the superior vena cava. No pneumothorax. 2. No acute infiltrate. Scattered parenchymal opacities and bronchiectasis/ scarring not significantly changed. Abdomen/Pelvis CT 03/03/18 06:49 CONCLUSION: 1. Abnormal proximal small bowel with dilatation and wall thickening. There is no definite obstruction. The finding is nonspecific and could be infectious or inflammatory. There are postsurgical changes consistent with partial bowel resection. 2. Small to moderate amount of ascitic fluid greatest in the pelvis. 3. Status post cholecystectomy. CT scan - abdomen: report reviewed, image reviewed CT scan - pelvis: report reviewed, image reviewed Assessment and Plan - Assessment (1) History of peptic ulcer Code(s): Z87.11 - Personal history of peptic ulcer disease Status: Acute (2) History of bypass gastrojejunostomy Code(s): Z98.0 - Intestinal bypass and anastomosis status Status: Acute (3) Abdominal pain Code(s): R10.9 - Unspecified abdominal pain Status: Acute Qualifiers: Abdominal location: left lower quadrant Qualified Code(s): R10.32 - Left lower quadrant pain - Plan Etiology of severe pain unclear. Due to history I think this is likely a peptic ulcer which does not seem to have perforate but could also be bowel obstruction or ischemia. I would like to monitor her and recheck labs and exam in a few hrs. Continue zosyn, BID protonix 40mg, start carafate, dilaudid for pain.
--- NOTE | 2018-03-03 13:25 | ECG ---
Date Performed: 03/03/2018 Time Performed: 07:17:58 PTAGE: 47 years EKG: Sinus rhythm POSSIBLE LEFT ATRIAL ENLARGEMENT SEPTAL MYOCARDIAL INFARCTION ABNORMAL ECG PREVIOUS TRACING : 09/07/2017 11.39 DOCTOR: Blas Art Interpretating Date/Time 03/03/2018 13:24:28
[2018-03-03] MEDS ORDERED: HYDROmorphone PF Inj 1 MG/ML Ampul IV.PUSH PRN (13:30)
[2018-03-03] MEDS: Multivitamin Inj 10 ML, Thiamine Inj 100 MG, Folic Acid Inj 1 MG in Sodium Chlor 0.9% I... IV.SIG SCH (13:38)
[2018-03-03] MEDS: Insulin NovoLOG Aspart Correctional Sugar Inj SQ SCH ×2 (13:39→18:42)
[2018-03-03] MEDS: Heparin - SQ 10,000 UNITS/ML Vial SQ SCH (13:39)
[2018-03-03] MEDS: Piperacil/Tazo 4.5 GM Premix 4.5 GM/100 ML BAG IV.SIG SCH ×2 (13:39→18:00)
[2018-03-03] MEDS: Pantoprazole Inj 40 MG Vial IV.PUSH SCH (13:39)
[2018-03-03] MEDS: Sucralfate 1 GM Tablet PO SCH ×2 (13:40→16:17)
[2018-03-03] MEDS: HYDROmorphone PF Inj 2 MG/ML Vial IV.PUSH PRN ×4 (13:59→21:40)
[2018-03-03 14:14] LABS: Hematocrit 37.5 % (35.0-46.0); Hemoglobin 12.4 gm/dL (11.6-15.3); Mean Corpuscular HGB Conc 33.1 % (32.0-36.0); Mean Corpuscular Hemoglobin 31.5 pg (27.0-34.0); Platelet Count 225 th/mm3 (150-450); Red Blood Count 3.94 mil/mm3 (4.00-5.30); Red Cell Distribution Width 15.8 % (11.6-17.2); White Blood Count 14.8 th/mm3 (4.0-11.0)
--- NOTE | 2018-03-03 17:12 | P.PNGS ---
Subjective Interval history: She now appears comfortable sitting up in bed. Lactate is 0.7. Physical Exam Vital signs: Vital Signs 03/03/18 07:15 03/03/18 07:16 03/03/18 07:30 Temperature 97.7 F Pulse Rate 84 83 86 Respiratory Rate 16 20 18 Blood Pressure 102/57 L 115/63 106/63 Pulse Oximetry 96 92 L 100 03/03/18 09:15 03/03/18 10:01 03/03/18 11:00 Temperature Pulse Rate 84 80 Respiratory Rate 18 19 17 Blood Pressure 120/70 112/64 Pulse Oximetry 100 95 03/03/18 11:10 03/03/18 12:11 03/03/18 12:30 Temperature Pulse Rate 78 85 Respiratory Rate 19 Blood Pressure 105/61 Pulse Oximetry 98 96 97 03/03/18 14:00 03/03/18 15:00 Temperature Pulse Rate 79 79 Respiratory Rate 17 21 Blood Pressure 112/62 104/56 L Pulse Oximetry 98 97 Intake & Output 03/02/18 03/03/18 03/03/18 18:59 06:59 18:59 Intake Total 2500 / 2500 Output Total 0 / 0 Balance 2500 / 2500 Weight 47.627 kg Intake: IV 2500 / 2500 Magnesium Sulfate Inj 2 GM In 200 / 200 NS Inj 96 ML @ 50 mls/hr IV.SIG ONCE ONE Rx#:[id number] Zosyn 4.5 GM Premix 4.5 gm In 200 / 200 100 ml @ 200 mls/hr IV.SIG Q6H OJ Rx#:[id number] KCl 20 mEq Premix Inj 20 meq In 100 / 100 100 ml @ 50 mls/hr IV.SIG ONCE ONE Rx#:[id number] NS Inj 1,000 ML @ Wide Open IV. 1999 SIG BOLUS ONE Rx#:[id number] Output: Urine 0 / 0 Narrative: NAD Abd: soft, no rebound now. Tender in LLQ. Results - Labs 03/03/18 13:56 03/03/18 06:55 Laboratory Results - last 24 hr 03/03/18 03/03/18 03/03/18 06:55 06:55 06:55 WBC 16.3 H RBC 4.10 Hgb 12.7 Hct 39.1 MCV 95.4 MCH 30.9 MCHC 32.4 RDW 15.9 Plt Count 263 MPV 9.4 Neut % (Auto) 86.5 H Lymph % (Auto) 7.1 L [place] % (Auto) 5.8 Eos % (Auto) 0.4 Baso % (Auto) 0.2 Neut # (Auto) 14.1 H Lymph # (Auto) 1.2 [place] # (Auto) 0.9 Eos # (Auto) 0.1 Baso # (Auto) 0.0 WBC Differential . Differential Comment Auto diff final PT 12.0 H INR 1.2 APTT 24.2 L Sodium 142 Potassium 3.3 L Chloride 110 H Carbon Dioxide 20.8 L Anion Gap 11 BUN 17 Creatinine 1.00 Estimated GFR 60 L POC Glucose Random Glucose 110 H Lactic Acid Calcium 9.0 Magnesium 0.8 L Total Bilirubin 0.5 AST 7 L ALT 9 L Alkaline Phosphatase 60 Total Creatine Kinase 27 Troponin I Less than 0.02 L Total Protein 5.7 L Albumin 2.6 L Lipase 39 L Urine Color Urine Clarity Urine pH Ur Specific [place] Urine Protein Urine Glucose (UA) Urine Ketones Urine Occult Blood Urine Nitrate Urine Bilirubin Urine Urobilinogen Ur Leukocyte Esterase Urine RBC Urine WBC Ur Squamous Epith Cells Hyaline Casts Granular Casts Urine Mucus Micro UA Comment Ur Microscopic Review Urine Culture Comments Blood Type Blood Type Recheck Antibody Screen 03/03/18 03/03/18 03/03/18 06:55 06:55 11:48 WBC RBC Hgb Hct MCV MCH MCHC RDW Plt Count MPV Neut % (Auto) Lymph % (Auto) [place] % (Auto) Eos % (Auto) Baso % (Auto) Neut # (Auto) Lymph # (Auto) [place] # (Auto) Eos # (Auto) Baso # (Auto) WBC Differential Differential Comment PT INR APTT Sodium Potassium Chloride Carbon Dioxide Anion Gap BUN Creatinine Estimated GFR POC Glucose Random Glucose Lactic Acid 1.4 Calcium Magnesium Total Bilirubin AST ALT Alkaline Phosphatase Total Creatine Kinase 37 Troponin I Total Protein Albumin Lipase Urine Color Urine Clarity Urine pH Ur Specific [place] Urine Protein Urine Glucose (UA) Urine Ketones Urine Occult Blood Urine Nitrate Urine Bilirubin Urine Urobilinogen Ur Leukocyte Esterase Urine RBC Urine WBC Ur Squamous Epith Cells Hyaline Casts Granular Casts Urine Mucus Micro UA Comment Ur Microscopic Review Urine Culture Comments Blood Type O Positive Blood Type Recheck Required Antibody Screen Negative 03/03/18 03/03/18 03/03/18 11:50 12:27 13:56 WBC 14.8 H RBC 3.94 L Hgb 12.4 Hct 37.5 MCV 95.0 MCH 31.5 MCHC 33.1 RDW 15.8 Plt Count 225 MPV 9.0 Neut % (Auto) Lymph % (Auto) [place] % (Auto) Eos % (Auto) Baso % (Auto) Neut # (Auto) Lymph # (Auto) [place] # (Auto) Eos # (Auto) Baso # (Auto) WBC Differential Differential Comment PT INR APTT Sodium Potassium Chloride Carbon Dioxide Anion Gap BUN Creatinine Estimated GFR POC Glucose 110 Random Glucose Lactic Acid Calcium Magnesium Total Bilirubin AST ALT Alkaline Phosphatase Total Creatine Kinase Troponin I Total Protein Albumin Lipase Urine Color Yellow Urine Clarity Hazy H Urine pH 5.0 Ur Specific [place] 1.057 H Urine Protein Negative Urine Glucose (UA) Negative Urine Ketones 20 Urine Occult Blood Small H Urine Nitrate Negative Urine Bilirubin Negative Urine Urobilinogen Less than 2 Ur Leukocyte Esterase Negative Urine RBC 1 Urine WBC 1 Ur Squamous Epith Cells 5 Hyaline Casts 1 Granular Casts 3 Urine Mucus Few H Micro UA Comment Culture not ind Ur Microscopic Review Not Reportable Urine Culture Comments Culture not ind Blood Type Blood Type Recheck Antibody Screen 03/03/18 13:56 WBC RBC Hgb Hct MCV MCH MCHC RDW Plt Count MPV Neut % (Auto) Lymph % (Auto) [place] % (Auto) Eos % (Auto) Baso % (Auto) Neut # (Auto) Lymph # (Auto) [place] # (Auto) Eos # (Auto) Baso # (Auto) WBC Differential Differential Comment PT INR APTT Sodium Potassium Chloride Carbon Dioxide Anion Gap BUN Creatinine Estimated GFR POC Glucose Random Glucose Lactic Acid 0.7 Calcium Magnesium Total Bilirubin AST ALT Alkaline Phosphatase Total Creatine Kinase Troponin I Total Protein Albumin Lipase Urine Color Urine Clarity Urine pH Ur Specific [place] Urine Protein Urine Glucose (UA) Urine Ketones Urine Occult Blood Urine Nitrate Urine Bilirubin Urine Urobilinogen Ur Leukocyte Esterase Urine RBC Urine WBC Ur Squamous Epith Cells Hyaline Casts Granular Casts Urine Mucus Micro UA Comment Ur Microscopic Review Urine Culture Comments Blood Type Blood Type Recheck Antibody Screen - Imaging Imaging: ITS Impressions Chest X-Ray 03/03/18 06:43 CONCLUSION: 1. Left IJ central venous catheter with tip in the superior vena cava. No pneumothorax. 2. No acute infiltrate. Scattered parenchymal opacities and bronchiectasis/ scarring not significantly changed. Abdomen/Pelvis CT 03/03/18 06:49 CONCLUSION: 1. Abnormal proximal small bowel with dilatation and wall thickening. There is no definite obstruction. The finding is nonspecific and could be infectious or inflammatory. There are postsurgical changes consistent with partial bowel resection. 2. Small to moderate amount of ascitic fluid greatest in the pelvis. 3. Status post cholecystectomy. Assessment and Plan - Assessment (1) History of peptic ulcer Code(s): Z87.11 - Personal history of peptic ulcer disease Status: Acute (2) History of bypass gastrojejunostomy Code(s): Z98.0 - Intestinal bypass and anastomosis status Status: Acute (3) Abdominal pain Code(s): R10.9 - Unspecified abdominal pain Status: Acute - Plan Pain and tenderness improved. Possibly severe gastritis or jejunitis. Will request GI evaluation. (3) Abdominal pain Qualifiers: Abdominal location: left lower quadrant Qualified Code(s): R10.32 - Left lower quadrant pain
[2018-03-03 20:31] LABS: Baso % (Auto) 0.1 % (0.0-2.0); Hematocrit 33.4 % (35.0-46.0); Hemoglobin 10.7 gm/dL (11.6-15.3); Lymph # (Auto) 0.8 th/mm3 (1.0-4.8); Lymph % (Auto) 7.2 % (9.0-44.0); Mean Corpuscular HGB Conc 32.1 % (32.0-36.0); Mean Corpuscular Hemoglobin 30.4 pg (27.0-34.0); Mean Corpuscular Volume 94.6 fL (80.0-100.0); Mean Platelet Volume 9.2 fL (7.0-11.0); Mono # (Auto) 0.6 th/mm3 (0.0-0.9); Mono % (Auto) 5.3 % (0.0-8.0); Neut # (Auto) 9.7 th/mm3 (1.8-7.7); Neut % (Auto) 87.4 % (16.0-70.0); Platelet Count 182 th/mm3 (150-450); Red Blood Count 3.53 mil/mm3 (4.00-5.30); Red Cell Distribution Width 16.4 % (11.6-17.2); White Blood Count 11.1 th/mm3 (4.0-11.0)
[2018-03-03 20:47] LABS: Anion Gap 9 meq/L (5-15); Blood Urea Nitrogen 16 mg/dL (7-18); Chloride 107 meq/L (98-107); Glomerular Filtration Rate Greater Than 89 mL/min (>89); Glucose,Random 99 mg/dL (74-106); Magnesium 2.2 mg/dL (1.5-2.5); Potassium 4.5 meq/L (3.5-5.1); Sodium 139 meq/L (136-145)
[2018-03-03] MEDS: Senna/Docusate Sodium 8.6/50 MG Tablet PO SCH (21:40)
[2018-03-03 21:42] LABS: Phosphorus 3.5 mg/dL (2.5-4.9)
[2018-03-03 21:46] LABS: Creatine Kinase 58 U/L (26-192)
[2018-03-04] MEDS: Piperacil/Tazo 4.5 GM Premix 4.5 GM/100 ML BAG IV.SIG SCH ×4 (00:58→17:40)
[2018-03-04] MEDS: Sod Chloride 0.9% Inj 1,000 ML IV.CONT SCH ×2 (01:00→11:53)
[2018-03-04] MEDS: Heparin - SQ 10,000 UNITS/ML Vial SQ SCH ×2 (01:09→11:53)
[2018-03-04] MEDS: Insulin NovoLOG Aspart Correctional Sugar Inj SQ SCH ×4 (01:10→17:43)
[2018-03-04] MEDS: HYDROmorphone PF Inj 2 MG/ML Vial IV.PUSH PRN ×7 (01:10→22:34)
[2018-03-04] MEDS: Pantoprazole Inj 40 MG Vial IV.PUSH SCH ×2 (01:10→11:52)
[2018-03-04] MEDS ORDERED: Chlorhexidine Gluconate 2% 1 Pack (2 Cloths) TOPICAL PRN (04:00)
[2018-03-04] MEDS: Chlorhexidine Gluconate 2% 1 Pack (2 Cloths) TOPICAL SCH (05:19)
[2018-03-04 06:17] LABS: Baso % (Auto) 0.1 % (0.0-2.0); Eos % (Auto) 0.3 % (0.0-4.0); Hematocrit 28.8 % (35.0-46.0); Hemoglobin 9.4 gm/dL (11.6-15.3); Lymph # (Auto) 0.7 th/mm3 (1.0-4.8); Lymph % (Auto) 8.5 % (9.0-44.0); Mean Corpuscular HGB Conc 32.8 % (32.0-36.0); Mean Corpuscular Hemoglobin 31.2 pg (27.0-34.0); Mean Corpuscular Volume 95.1 fL (80.0-100.0); Mono # (Auto) 0.6 th/mm3 (0.0-0.9); Mono % (Auto) 7.1 % (0.0-8.0); Neut # (Auto) 6.6 th/mm3 (1.8-7.7); Platelet Count 147 th/mm3 (150-450); Red Blood Count 3.02 mil/mm3 (4.00-5.30); Red Cell Distribution Width 16.3 % (11.6-17.2); White Blood Count 7.8 th/mm3 (4.0-11.0)
[2018-03-04 06:26] LABS: Activated Partial Thrombo Time 37.5 sec (24.3-30.1); INR 1.1 Ratio; Prothrombin Time 11.6 sec (9.8-11.6)
[2018-03-04 07:08] LABS: Albumin 2.5 g/dL (3.4-5.0); Anion Gap 8 meq/L (5-15); Aspartate Aminotransferase 12 U/L (15-37); Blood Urea Nitrogen 13 mg/dL (7-18); Calcium 7.7 mg/dL (8.5-10.1); Carbon Dioxide 22.9 meq/L (21.0-32.0); Chloride 108 meq/L (98-107); Glomerular Filtration Rate Greater Than 89 mL/min (>89); Glucose,Random 84 mg/dL (74-106); Magnesium 1.8 mg/dL (1.5-2.5); Potassium 4.1 meq/L (3.5-5.1); Sodium 139 meq/L (136-145)
[2018-03-04 07:11] LABS: Alanine Aminotransferase 12 U/L (10-53); Phosphorus 2.3 mg/dL (2.5-4.9)
[2018-03-04 07:21] LABS: Alkaline Phosphatase 56 U/L (45-117); Total Protein 5.7 g/dL (6.4-8.2)
[2018-03-04] MEDS: Senna/Docusate Sodium 8.6/50 MG Tablet PO SCH ×2 (08:50→21:53)
[2018-03-04] MEDS: Sucralfate 1 GM Tablet PO SCH ×2 (08:50→17:40)
[2018-03-04] MEDS ORDERED: Pantoprazole Inj 40 MG Vial IV.PUSH SCH (09:00)
--- NOTE | 2018-03-04 09:10 | P.PNGS ---
Subjective Interval history: Continues to improve. WBC now normal. No nausea and pain milder and localized in LLQ. Physical Exam Vital signs: Vital Signs 03/03/18 09:15 03/03/18 10:01 03/03/18 11:00 Temperature Pulse Rate 84 80 Respiratory Rate 18 19 17 Blood Pressure 120/70 112/64 Pulse Oximetry 100 95 03/03/18 11:10 03/03/18 12:11 03/03/18 12:30 Temperature Pulse Rate 78 85 Respiratory Rate 19 Blood Pressure 105/61 Pulse Oximetry 98 96 97 03/03/18 12:45 03/03/18 13:00 03/03/18 13:15 Temperature Pulse Rate 87 85 81 Respiratory Rate 31 H 27 H 13 Blood Pressure 103/66 107/61 Pulse Oximetry 97 97 97 03/03/18 13:30 03/03/18 13:45 03/03/18 14:00 Temperature Pulse Rate 90 84 79 Respiratory Rate 24 26 H 27 H Blood Pressure 106/65 104/63 112/62 Pulse Oximetry 97 98 98 03/03/18 14:15 03/03/18 14:30 03/03/18 14:45 Temperature Pulse Rate 85 79 85 Respiratory Rate 20 23 25 H Blood Pressure 119/72 117/71 115/67 Pulse Oximetry 97 97 98 03/03/18 15:00 03/03/18 16:00 03/03/18 17:00 Temperature 98.3 F Pulse Rate 79 80 90 Respiratory Rate 21 25 H 26 H Blood Pressure 104/56 L 103/55 L 108/62 Pulse Oximetry 97 98 99 03/03/18 17:57 03/03/18 18:00 03/03/18 19:00 Temperature Pulse Rate 73 79 86 Respiratory Rate 18 24 28 H Blood Pressure 108/58 L 108/57 L Pulse Oximetry 100 96 03/03/18 19:54 03/03/18 19:55 03/03/18 20:00 Temperature 97.9 F Pulse Rate 81 76 Respiratory Rate 22 17 Blood Pressure 99/53 L Pulse Oximetry 95 97 03/03/18 21:00 03/03/18 21:01 03/03/18 22:00 Temperature Pulse Rate 79 78 92 H Respiratory Rate 22 16 22 Blood Pressure 108/51 L 107/56 L Pulse Oximetry 93 L 94 L 95 03/03/18 23:00 03/04/18 00:00 03/04/18 01:00 Temperature 98.4 F Pulse Rate 77 77 74 Respiratory Rate 15 18 19 Blood Pressure 92/54 L 94/63 L 95/52 L Pulse Oximetry 92 L 97 97 03/04/18 02:00 03/04/18 03:00 03/04/18 04:00 Temperature 98.2 F Pulse Rate 87 75 86 Respiratory Rate 27 H 20 19 Blood Pressure 81/53 L 93/50 L 88/54 L Pulse Oximetry 97 96 97 03/04/18 04:32 03/04/18 05:00 03/04/18 05:58 Temperature Pulse Rate 77 77 Respiratory Rate 16 13 20 Blood Pressure 82/53 L Pulse Oximetry 97 03/04/18 06:00 03/04/18 07:00 Temperature Pulse Rate 80 76 Respiratory Rate 26 H 17 Blood Pressure 100/57 L 86/54 L Pulse Oximetry 97 97 Intake & Output 03/03/18 03/04/18 03/04/18 18:59 06:59 18:59 Intake Total 3855.2 / 3855.2 606 / 606 100 / 100 Output Total 300 / 300 700 / 700 600 / 600 Balance 3555.2 / 3555.2 -94 / -94 -500 / -500 Weight 47.627 kg 49.5 kg Intake: IV 3805.2 / 3805.2 606 / 606 100 / 100 NS Inj 1,000 ML @ 84 mls/hr IV. 494 / 494 506 / 506 CONT .[id number] OJ Rx#:[id number] Magnesium Sulfate Inj 2 GM In 300 / 300 NS Inj 96 ML @ 50 mls/hr IV.SIG ONCE ONE Rx#:[id number] MVI-12 Inj 10 ML Thiamine Inj 511.2 / 511.2 100 MG Folvite Inj 1 MG In NS Inj 500 ML @ 125 mls/hr IV.SIG Q24H OJ Rx#:[id number] Zosyn 4.5 GM Premix 4.5 gm In 300 / 300 100 / 100 100 / 100 100 ml @ 200 mls/hr IV.SIG Q6H OJ Rx#:[id number] KCl 20 mEq Premix Inj 20 meq In 200 / 200 100 ml @ 50 mls/hr IV.SIG Q2H PRN Rx#:[id number] NS Inj 1,000 ML @ Wide Open IV. 1999 SIG BOLUS ONE Rx#:[id number] Oral 50 / 50 0 / 0 0 / 0 Output: Urine 300 / 300 700 / 700 600 / 600 Other: # Voids 1 2 # Bowel Movements 0 0 Narrative: NAD Abd: moderate LLQ ttp, improved. No rebound or guarding. Results - Labs 03/04/18 05:54 03/04/18 05:54 Laboratory Results - last 24 hr 03/03/18 03/03/18 03/03/18 11:48 11:50 12:25 WBC RBC Hgb Hct MCV MCH MCHC RDW Plt Count MPV Neut % (Auto) Lymph % (Auto) Webb % (Auto) Eos % (Auto) Baso % (Auto) Neut # (Auto) Lymph # (Auto) Webb # (Auto) Eos # (Auto) Baso # (Auto) WBC Differential Differential Comment PT INR APTT Sodium Potassium Chloride Carbon Dioxide Anion Gap BUN Creatinine Estimated GFR POC Glucose Random Glucose Lactic Acid Calcium Phosphorus Magnesium Total Bilirubin AST ALT Alkaline Phosphatase Total Creatine Kinase 37 Total Protein Albumin TSH Urine Color Yellow Urine Clarity Hazy H Urine pH 5.0 Ur Specific [place] 1.057 H Urine Protein Negative Urine Glucose (UA) Negative Urine Ketones 20 Urine Occult Blood Small H Urine Nitrate Negative Urine Bilirubin Negative Urine Urobilinogen Less than 2 Ur Leukocyte Esterase Negative Urine RBC 1 Urine WBC 1 Ur Squamous Epith Cells 5 Hyaline Casts 1 Granular Casts 3 Urine Mucus Few H Micro UA Comment Culture not ind Ur Microscopic Review Not Reportable Urine Culture Comments Culture not ind Nasal Screen MRSA (PCR) Not detected 03/03/18 03/03/18 03/03/18 12:27 13:56 13:56 WBC 14.8 H RBC 3.94 L Hgb 12.4 Hct 37.5 MCV 95.0 MCH 31.5 MCHC 33.1 RDW 15.8 Plt Count 225 MPV 9.0 Neut % (Auto) Lymph % (Auto) Webb % (Auto) Eos % (Auto) Baso % (Auto) Neut # (Auto) Lymph # (Auto) Webb # (Auto) Eos # (Auto) Baso # (Auto) WBC Differential Differential Comment PT INR APTT Sodium Potassium Chloride Carbon Dioxide Anion Gap BUN Creatinine Estimated GFR POC Glucose 110 Random Glucose Lactic Acid 0.7 Calcium Phosphorus Magnesium Total Bilirubin AST ALT Alkaline Phosphatase Total Creatine Kinase Total Protein Albumin TSH Urine Color Urine Clarity Urine pH Ur Specific [place] Urine Protein Urine Glucose (UA) Urine Ketones Urine Occult Blood Urine Nitrate Urine Bilirubin Urine Urobilinogen Ur Leukocyte Esterase Urine RBC Urine WBC Ur Squamous Epith Cells Hyaline Casts Granular Casts Urine Mucus Micro UA Comment Ur Microscopic Review Urine Culture Comments Nasal Screen MRSA (PCR) 03/03/18 03/03/18 03/03/18 18:35 19:44 19:44 WBC 11.1 H RBC 3.53 L Hgb 10.7 L Hct 33.4 L MCV 94.6 MCH 30.4 MCHC 32.1 RDW 16.4 Plt Count 182 MPV 9.2 Neut % (Auto) 87.4 H Lymph % (Auto) 7.2 L Webb % (Auto) 5.3 Eos % (Auto) 0.0 Baso % (Auto) 0.1 Neut # (Auto) 9.7 H Lymph # (Auto) 0.8 L Webb # (Auto) 0.6 Eos # (Auto) 0.0 Baso # (Auto) 0.0 WBC Differential . Differential Comment Auto diff final PT INR APTT Sodium 139 Potassium 4.5 D Chloride 107 Carbon Dioxide 23.0 Anion Gap 9 BUN 16 Creatinine 0.66 Estimated GFR Greater than 89 POC Glucose 123 H Random Glucose 99 Lactic Acid Calcium 8.0 L D Phosphorus 3.5 Magnesium 2.2 D Total Bilirubin AST ALT Alkaline Phosphatase Total Creatine Kinase 58 Total Protein Albumin TSH Urine Color Urine Clarity Urine pH Ur Specific [place] Urine Protein Urine Glucose (UA) Urine Ketones Urine Occult Blood Urine Nitrate Urine Bilirubin Urine Urobilinogen Ur Leukocyte Esterase Urine RBC Urine WBC Ur Squamous Epith Cells Hyaline Casts Granular Casts Urine Mucus Micro UA Comment Ur Microscopic Review Urine Culture Comments Nasal Screen MRSA (PCR) 03/03/18 03/03/18 03/04/18 20:10 23:59 05:43 WBC RBC Hgb Hct MCV MCH MCHC RDW Plt Count MPV Neut % (Auto) Lymph % (Auto) Webb % (Auto) Eos % (Auto) Baso % (Auto) Neut # (Auto) Lymph # (Auto) Webb # (Auto) Eos # (Auto) Baso # (Auto) WBC Differential Differential Comment PT INR APTT Sodium Potassium Chloride Carbon Dioxide Anion Gap BUN Creatinine Estimated GFR POC Glucose 101 97 Random Glucose Lactic Acid 0.7 Calcium Phosphorus Magnesium Total Bilirubin AST ALT Alkaline Phosphatase Total Creatine Kinase Total Protein Albumin TSH Urine Color Urine Clarity Urine pH Ur Specific [place] Urine Protein Urine Glucose (UA) Urine Ketones Urine Occult Blood Urine Nitrate Urine Bilirubin Urine Urobilinogen Ur Leukocyte Esterase Urine RBC Urine WBC Ur Squamous Epith Cells Hyaline Casts Granular Casts Urine Mucus Micro UA Comment Ur Microscopic Review Urine Culture Comments Nasal Screen MRSA (PCR) 03/04/18 03/04/18 03/04/18 05:54 05:54 05:54 WBC 7.8 RBC 3.02 L Hgb 9.4 L Hct 28.8 L MCV 95.1 MCH 31.2 MCHC 32.8 RDW 16.3 Plt Count 147 L MPV 9.0 Neut % (Auto) 84.0 H Lymph % (Auto) 8.5 L Webb % (Auto) 7.1 Eos % (Auto) 0.3 Baso % (Auto) 0.1 Neut # (Auto) 6.6 Lymph # (Auto) 0.7 L Webb # (Auto) 0.6 Eos # (Auto) 0.0 Baso # (Auto) 0.0 WBC Differential . Differential Comment Auto diff final PT 11.6 INR 1.1 APTT 37.5 H D Sodium 139 Potassium 4.1 Chloride 108 H Carbon Dioxide 22.9 Anion Gap 8 BUN 13 Creatinine 0.56 Estimated GFR Greater than 89 POC Glucose Random Glucose 84 Lactic Acid Calcium 7.7 L Phosphorus 2.3 L D Magnesium 1.8 Total Bilirubin 0.4 AST 12 L ALT 12 Alkaline Phosphatase 56 Total Creatine Kinase Total Protein 5.7 L Albumin 2.5 L TSH 1.260 Urine Color Urine Clarity Urine pH Ur Specific [place] Urine Protein Urine Glucose (UA) Urine Ketones Urine Occult Blood Urine Nitrate Urine Bilirubin Urine Urobilinogen Ur Leukocyte Esterase Urine RBC Urine WBC Ur Squamous Epith Cells Hyaline Casts Granular Casts Urine Mucus Micro UA Comment Ur Microscopic Review Urine Culture Comments Nasal Screen MRSA (PCR) 03/04/18 05:54 WBC RBC Hgb Hct MCV MCH MCHC RDW Plt Count MPV Neut % (Auto) Lymph % (Auto) Webb % (Auto) Eos % (Auto) Baso % (Auto) Neut # (Auto) Lymph # (Auto) Webb # (Auto) Eos # (Auto) Baso # (Auto) WBC Differential Differential Comment PT INR APTT Sodium Potassium Chloride Carbon Dioxide Anion Gap BUN Creatinine Estimated GFR POC Glucose Random Glucose Lactic Acid 0.7 Calcium Phosphorus Magnesium Total Bilirubin AST ALT Alkaline Phosphatase Total Creatine Kinase Total Protein Albumin TSH Urine Color Urine Clarity Urine pH Ur Specific [place] Urine Protein Urine Glucose (UA) Urine Ketones Urine Occult Blood Urine Nitrate Urine Bilirubin Urine Urobilinogen Ur Leukocyte Esterase Urine RBC Urine WBC Ur Squamous Epith Cells Hyaline Casts Granular Casts Urine Mucus Micro UA Comment Ur Microscopic Review Urine Culture Comments Nasal Screen MRSA (PCR) - Imaging Imaging: ITS Impressions Chest X-Ray 03/03/18 06:43 CONCLUSION: 1. Left IJ central venous catheter with tip in the superior vena cava. No pneumothorax. 2. No acute infiltrate. Scattered parenchymal opacities and bronchiectasis/ scarring not significantly changed. Abdomen/Pelvis CT 03/03/18 06:49 CONCLUSION: 1. Abnormal proximal small bowel with dilatation and wall thickening. There is no definite obstruction. The finding is nonspecific and could be infectious or inflammatory. There are postsurgical changes consistent with partial bowel resection. 2. Small to moderate amount of ascitic fluid greatest in the pelvis. 3. Status post cholecystectomy. Assessment and Plan - Assessment (1) History of peptic ulcer Code(s): Z87.11 - Personal history of peptic ulcer disease Status: Acute (2) History of bypass gastrojejunostomy Code(s): Z98.0 - Intestinal bypass and anastomosis status Status: Acute (3) Abdominal pain Code(s): R10.9 - Unspecified abdominal pain Status: Acute - Plan She is improving. Likely gastritis or jejunitis or PUD. I will s/o and be available as needed. Ok for clears and advance as tolerated from my standpoint depending on GI plan. May benefit from rx for carafate when discharged. (3) Abdominal pain Qualifiers: Abdominal location: left lower quadrant Qualified Code(s): R10.32 - Left lower quadrant pain
--- NOTE | 2018-03-04 11:40 | P.CONGI ---
History of Present Illness Consult date: 03/04/18 Consult reason: History of perforated ulcer Questionable jejunitis Chief complaint: Enteritis, Peritonitis History of Present Illness: This patient is a 47-year-old female who presented to the emergency room at [facility] on 03/03/2018. Past medical history includes gastric bypass in 2010 with a GJ perforation with omental patch by Dr. Roy 2014. Patient also has history of depression, gastroesophageal reflux, perforated bowel, hypertension, COPD, use of tobacco and prior alcohol abuse. Surgical history includes Cristofer-en-Y gastric bypass, bowel resection, lobectomy of lung, and wrist surgery. Upon consultation, patient reports 2-day history of constant sharp pain across lower abdomen that she rated as 9 out of 10. Denies any alleviating or aggravating factors. Patient also endorses heartburn with acid reflux for 2 days. States she vomited x 2 a yellow biliary emesis. Patient reports gnawing epigastric pain at this time. She rates it at 4/10, states it is constant and burning in nature. She reports history of GERD for which she takes Protonix 40 mg p.o. twice daily . She states it is controlled by the administered pain medication Dilaudid. Last EGD per patient was done in 2017 and was unremarkable per her recollection. Patient denies any difficulty or pain with swallowing. Patient states she normally has a BM every 2-4 days. She states stools are normally brown and hard without any noted bleeding. She takes stool softeners nightly to alleviate this. Patient states she is a cigarette smoker half a pack per day and states that she ingest alcohol socially or on special occasions only. Patient denies any known family history of any gastrointestinal disorders. Our practice has been consulted to evaluate patient's presenting symptoms. <Cande Adams - Last Filed: 03/04/18 11:17> Review of Systems All other systems reviewed negative except as stated in HPI <Cande Adams - Last Filed: 03/04/18 11:17> PMFSH - History History Provided By: Patient - Medical History Medical History: Medical History (Last Reviewed 03/03/18 @ 10:48 by Keo White MD) COPD (chronic obstructive pulmonary disease) Gastroesophageal reflux disease HTN (hypertension) Perforated bowel - Surgical History Surgical History: Surgical History (Last Updated 03/03/18 @ 10:50 by Keo White MD) History of Cristofer-en-Y gastric bypass History of bowel resection S/P IVC filter S/P lobectomy of lung Status post wrist surgery - Family History Family History: Family History (Last Updated 03/03/18 @ 10:52 by Keo White MD) Father Family history of hypertension Family history of hyperlipidemia Mother Family history of chronic kidney disease - Tobacco History Second Hand Smoke Exposure: Yes Tobacco Use In Past 30 Days: Yes Smoking Status: Current every day smoker Tobacco Type: Cigarettes - Alcohol History How Often Do You Have a Drink Containing Alcohol: Monthly or less - Substance Use History Substance History: No History of Abuse - Travel History Recent Travel in the [place] Within the Last 8 Weeks: No Recent Travel Out of the Country Within the Last 8 Weeks: No - Immunization History Tetanus Immunization: <5 Years <Cande Adams - Last Filed: 03/04/18 11:17> - Medical History Medical History: Medical History (Last Reviewed 03/03/18 @ 10:48 by Keo White MD) COPD (chronic obstructive pulmonary disease) Gastroesophageal reflux disease HTN (hypertension) Perforated bowel - Surgical History Surgical History: Surgical History (Last Updated 03/03/18 @ 10:50 by Keo White MD) History of Cristofer-en-Y gastric bypass History of bowel resection S/P IVC filter S/P lobectomy of lung Status post wrist surgery - Family History Family History: Family History (Last Updated 03/03/18 @ 10:52 by Keo White MD) Father Family history of hypertension Family history of hyperlipidemia Mother Family history of chronic kidney disease <Xiang Pagan - Last Filed: 03/04/18 11:49> Medications and Allergies Active Medications: Active Medications Acetaminophen (Tylenol) 650 mg PO Q6H PRN PRN Reason: FEVER Al Hydroxide/Mg Hydroxide (Milk Of Francy Liq) 30 ml PO Q12H PRN PRN Reason: Mild Constipation Albuterol (Albuterol Neb (Prn)) 2.5 mg NEB Q2HR NEB PRN PRN Reason: SHORTNESS OF BREATH/WHEEZING Albuterol (Duoneb Neb (Peña)) 1 ampul NEB Q6HR NEB PEÑA Last Admin: 03/04/18 10:51 Dose: Not Given Bisacodyl (Dulcolax Supp) 10 mg RECTAL DAILY PRN PRN Reason: SEVERE CONSITIPATION Chlorhexidine Gluconate (Chlorhexidine 2% Cloth) 3 pack TOPICAL DAILY@0400 [facility] Stop: 03/09/18 03:59 Last Admin: 03/04/18 05:19 Dose: 3 pack Chlorhexidine Gluconate (Chlorhexidine 2% Cloth) 3 pack TOPICAL DAILY@0400 PRN PRN Reason: Extra cloth needed Stop: 03/09/18 03:59 Dextrose (D50w Vial) 50 ml IV.PUSH UNSCH PRN PRN Reason: PER HYPOGLYCEMIA PROTOCOL Glucagon (Glucagon Inj) 1 mg OTHER UNSCH PRN PRN Reason: for Hypoglycemia Protocol Heparin Sodium (Porcine) (Heparin Inj) 5,000 units SQ Q12H PEÑA Last Admin: 03/04/18 01:09 Dose: 5,000 units Hydromorphone HCl (Dilaudid Pf Inj) 1 mg IV.PUSH Q2H PRN PRN Reason: PAIN SCALE 7 TO 10 Last Admin: 03/04/18 08:49 Dose: 1 mg Magnesium Sulfate 4 gm/ Sodium (Chloride) 100 mls @ 50 mls/hr IV.SIG UNSCH PRN PRN Reason: For Magnesium 0.9 - 1.1 mg/dL Magnesium Sulfate 2 gm/ Sodium (Chloride) 100 mls @ 50 mls/hr IV.SIG UNSCH PRN PRN Reason: For Magnesium 1.2 - 1.6 mg/dL Potassium Chloride (Kcl 40 Meq Premix Inj) 40 meq in 100 mls @ 50 mls/hr IV.SIG Q2H PRN PRN Reason: For Potassium 2.8 - 3.2 mEq/L Potassium Chloride (Kcl 20 Meq Premix Inj) 20 meq in 100 mls @ 50 mls/hr IV.SIG Q2H PRN PRN Reason: For Potassium 3.3 - 3.5 mEq/L Last Infusion: 03/03/18 15:52 Dose: Infused Potassium Chloride (Kcl 40 Meq Premix Inj) 40 meq in 100 mls @ 25 mls/hr IV.SIG UNSCH PRN PRN Reason: For Potassium 3.3 - 3.5 mEq/L Potassium Chloride (Kcl 20 Meq Premix Inj) 20 meq in 100 mls @ 50 mls/hr IV.SIG Q2H PRN PRN Reason: For Potassium 2.8 - 3.2 mEq/L Potassium Phosphate 30 mmol/ (Sodium Chloride) 260 mls @ 42 mls/hr IV.SIG UNSCH PRN PRN Reason: SEE LABEL COMMENTS Sodium Phosphate 30 mmol/ (Sodium Chloride) 260 mls @ 42 mls/hr IV.SIG UNSCH PRN PRN Reason: For Phosphorus < 2.5 mg/dL Sodium Chloride (Ns Inj) 1,000 mls @ 84 mls/hr IV.CONT .[id number] [facility] Last Admin: 03/04/18 01:00 Dose: 84 mls/hr Multivitamins 10 ml/ Thiamine HCl 100 mg/ Folic Acid 1 mg/Sodium Chloride 511.2 mls @ 125 mls/hr IV.SIG Q24H PEÑA Stop: 03/05/18 17:06 Last Infusion: 03/03/18 18:30 Dose: Infused Norepinephrine Bitartrate 16 (mg/ Sodium Chloride) 250 mls @ 1.87 mls/hr IV.CONT TITRATE PRN; Protocol PRN Reason: See Protocol Piperacillin/Tazobactam/Dextrose (Zosyn 4.5 Gm Premix) 4.5 gm in 100 mls @ 200 mls/hr IV.SIG Q6H PEÑA Last Infusion: 03/04/18 08:47 Dose: Infused Insulin Aspart (Novolog Insulin Correctional Sugar Inj) 0 unit SQ Q6HR [facility]; Protocol Last Admin: 03/04/18 05:58 Dose: Not Given Lactulose (Lactulose Liq) 30 ml PO DAILY PRN PRN Reason: SEVERE CONSITIPATION Magnesium Oxide (Mag-Ox) 800 mg PO UNSCH PRN PRN Reason: For Magnesium 1.2 - 1.6 mg/dL Ondansetron HCl (Zofran Inj) 4 mg IV.PUSH Q6H PRN PRN Reason: NAUSEA OR VOMITING Pantoprazole Sodium (Protonix Inj) 40 mg IV.PUSH Q12H [facility] Last Admin: 03/04/18 01:10 Dose: 40 mg Potassium Bicarb/Potassium Chloride (K-Lyte Cl Eff) 50 meq PO UNSCH PRN PRN Reason: For Potassium 3.3 - 3.5 mEq/L Potassium Phosphate (K-Phos Original) 2,000 mg PO Q4H PRN PRN Reason: Phosphorus Less Than 2.5 mg/dL Potassium Phosphate (K-Phos Original) 2,000 mg PO UNSCH PRN PRN Reason: SEE LABEL COMMENTS Senna/Docusate Sodium (Nona-Colace) 1 tab PO BID [facility] Last Admin: 03/04/18 08:50 Dose: 1 tab Sennosides (Senokot) 17.2 mg PO Q12H PRN PRN Reason: Moderate Constipation Sodium Chloride (Ns Flush) 2 ml IV.FLUSH BID [facility] Last Admin: 03/04/18 08:51 Dose: 2 ml Sodium Chloride (Ns Flush) 2 ml IV.FLUSH UNSCH PRN PRN Reason: FLUSH AFTER USING IV ACCESS Sucralfate (Carafate) 1 gm PO BIDAC [facility] Last Admin: 03/04/18 08:50 Dose: 1 gm Terbutaline Sulfate (Brethine Inj) 1 mg SQ UNSCH PRN PRN Reason: For Extravasation <Cande Adams - Last Filed: 03/04/18 11:17> Active Medications: Active Medications Acetaminophen (Tylenol) 650 mg PO Q6H PRN PRN Reason: FEVER Al Hydroxide/Mg Hydroxide (Milk Of Francy Liq) 30 ml PO Q12H PRN PRN Reason: Mild Constipation Albuterol (Albuterol Neb (Prn)) 2.5 mg NEB Q2HR NEB PRN PRN Reason: SHORTNESS OF BREATH/WHEEZING Albuterol (Duoneb Neb ([facility])) 1 ampul NEB Q6HR NEB [facility] Last Admin: 03/04/18 10:51 Dose: Not Given Bisacodyl (Dulcolax Supp) 10 mg RECTAL DAILY PRN PRN Reason: SEVERE CONSITIPATION Chlorhexidine Gluconate (Chlorhexidine 2% Cloth) 3 pack TOPICAL DAILY@0400 [facility] Stop: 03/09/18 03:59 Last Admin: 03/04/18 05:19 Dose: 3 pack Chlorhexidine Gluconate (Chlorhexidine 2% Cloth) 3 pack TOPICAL DAILY@0400 PRN PRN Reason: Extra cloth needed Stop: 03/09/18 03:59 Dextrose (D50w Vial) 50 ml IV.PUSH UNSCH PRN PRN Reason: PER HYPOGLYCEMIA PROTOCOL Glucagon (Glucagon Inj) 1 mg OTHER UNSCH PRN PRN Reason: for Hypoglycemia Protocol Heparin Sodium (Porcine) (Heparin Inj) 5,000 units SQ Q12H [facility] Last Admin: 03/04/18 01:09 Dose: 5,000 units Hydromorphone HCl (Dilaudid Pf Inj) 1 mg IV.PUSH Q2H PRN PRN Reason: PAIN SCALE 7 TO 10 Last Admin: 03/04/18 11:26 Dose: 1 mg Magnesium Sulfate 4 gm/ Sodium (Chloride) 100 mls @ 50 mls/hr IV.SIG UNSCH PRN PRN Reason: For Magnesium 0.9 - 1.1 mg/dL Magnesium Sulfate 2 gm/ Sodium (Chloride) 100 mls @ 50 mls/hr IV.SIG UNSCH PRN PRN Reason: For Magnesium 1.2 - 1.6 mg/dL Potassium Chloride (Kcl 40 Meq Premix Inj) 40 meq in 100 mls @ 50 mls/hr IV.SIG Q2H PRN PRN Reason: For Potassium 2.8 - 3.2 mEq/L Potassium Chloride (Kcl 20 Meq Premix Inj) 20 meq in 100 mls @ 50 mls/hr IV.SIG Q2H PRN PRN Reason: For Potassium 3.3 - 3.5 mEq/L Last Infusion: 03/03/18 15:52 Dose: Infused Potassium Chloride (Kcl 40 Meq Premix Inj) 40 meq in 100 mls @ 25 mls/hr IV.SIG UNSCH PRN PRN Reason: For Potassium 3.3 - 3.5 mEq/L Potassium Chloride (Kcl 20 Meq Premix Inj) 20 meq in 100 mls @ 50 mls/hr IV.SIG Q2H PRN PRN Reason: For Potassium 2.8 - 3.2 mEq/L Potassium Phosphate 30 mmol/ (Sodium Chloride) 260 mls @ 42 mls/hr IV.SIG UNSCH PRN PRN Reason: SEE LABEL COMMENTS Sodium Phosphate 30 mmol/ (Sodium Chloride) 260 mls @ 42 mls/hr IV.SIG UNSCH PRN PRN Reason: For Phosphorus < 2.5 mg/dL Sodium Chloride (Ns Inj) 1,000 mls @ 84 mls/hr IV.CONT .[id number] [facility] Last Admin: 03/04/18 01:00 Dose: 84 mls/hr Multivitamins 10 ml/ Thiamine HCl 100 mg/ Folic Acid 1 mg/Sodium Chloride 511.2 mls @ 125 mls/hr IV.SIG Q24H [facility] Stop: 03/05/18 17:06 Last Infusion: 03/03/18 18:30 Dose: Infused Norepinephrine Bitartrate 16 (mg/ Sodium Chloride) 250 mls @ 1.87 mls/hr IV.CONT TITRATE PRN; Protocol PRN Reason: See Protocol Piperacillin/Tazobactam/Dextrose (Zosyn 4.5 Gm Premix) 4.5 gm in 100 mls @ 200 mls/hr IV.SIG Q6H [facility] Last Infusion: 03/04/18 08:47 Dose: Infused Insulin Aspart (Novolog Insulin Correctional Sugar Inj) 0 unit SQ Q6HR [facility]; Protocol Last Admin: 03/04/18 05:58 Dose: Not Given Lactulose (Lactulose Liq) 30 ml PO DAILY PRN PRN Reason: SEVERE CONSITIPATION Magnesium Oxide (Mag-Ox) 800 mg PO UNSCH PRN PRN Reason: For Magnesium 1.2 - 1.6 mg/dL Ondansetron HCl (Zofran Inj) 4 mg IV.PUSH Q6H PRN PRN Reason: NAUSEA OR VOMITING Pantoprazole Sodium (Protonix Inj) 40 mg IV.PUSH Q12H [facility] Last Admin: 03/04/18 01:10 Dose: 40 mg Potassium Bicarb/Potassium Chloride (K-Lyte Cl Eff) 50 meq PO UNSCH PRN PRN Reason: For Potassium 3.3 - 3.5 mEq/L Potassium Phosphate (K-Phos Original) 2,000 mg PO Q4H PRN PRN Reason: Phosphorus Less Than 2.5 mg/dL Potassium Phosphate (K-Phos Original) 2,000 mg PO UNSCH PRN PRN Reason: SEE LABEL COMMENTS Senna/Docusate Sodium (Nona-Colace) 1 tab PO BID [facility] Last Admin: 03/04/18 08:50 Dose: 1 tab Sennosides (Senokot) 17.2 mg PO Q12H PRN PRN Reason: Moderate Constipation Sodium Chloride (Ns Flush) 2 ml IV.FLUSH BID [facility] Last Admin: 03/04/18 08:51 Dose: 2 ml Sodium Chloride (Ns Flush) 2 ml IV.FLUSH UNSCH PRN PRN Reason: FLUSH AFTER USING IV ACCESS Sucralfate (Carafate) 1 gm PO BIDAC [facility] Last Admin: 03/04/18 08:50 Dose: 1 gm Terbutaline Sulfate (Brethine Inj) 1 mg SQ UNSCH PRN PRN Reason: For Extravasation <Hemaidan,Ammar - Last Filed: 03/04/18 11:49> Allergies Allergy/AdvReac Type Severity Reaction Status Date / Time No Known Allergies Unknown Uncoded 04/17/17 20:29 Home Medications Medication Instructions Recorded Confirmed Type albuterol sulfate [Ventolin HFA] 2 puff INHALATION Q4-6H PRN 03/03/18 03/03/18 History lisinopril 20 mg PO DAILY 03/03/18 03/03/18 History pantoprazole [Protonix] 40 mg PO BID 03/03/18 03/03/18 History Exam Vital signs: Vital Signs 03/03/18 12:11 03/03/18 12:30 03/03/18 12:45 Temperature Pulse Rate 78 85 87 Respiratory Rate 19 31 H Blood Pressure 105/61 Pulse Oximetry 96 97 97 03/03/18 13:00 03/03/18 13:15 03/03/18 13:30 Temperature Pulse Rate 85 81 90 Respiratory Rate 27 H 13 24 Blood Pressure 103/66 107/61 106/65 Pulse Oximetry 97 97 97 03/03/18 13:45 03/03/18 14:00 03/03/18 14:15 Temperature Pulse Rate 84 79 85 Respiratory Rate 26 H 27 H 20 Blood Pressure 104/63 112/62 119/72 Pulse Oximetry 98 98 97 03/03/18 14:30 03/03/18 14:45 03/03/18 15:00 Temperature Pulse Rate 79 85 79 Respiratory Rate 23 25 H 21 Blood Pressure 117/71 115/67 104/56 L Pulse Oximetry 97 98 97 03/03/18 16:00 03/03/18 17:00 03/03/18 17:57 Temperature 98.3 F Pulse Rate 80 90 73 Respiratory Rate 25 H 26 H 18 Blood Pressure 103/55 L 108/62 Pulse Oximetry 98 99 03/03/18 18:00 03/03/18 19:00 03/03/18 19:54 Temperature Pulse Rate 79 86 81 Respiratory Rate 24 28 H 22 Blood Pressure 108/58 L 108/57 L Pulse Oximetry 100 96 03/03/18 19:55 03/03/18 20:00 03/03/18 21:00 Temperature 97.9 F Pulse Rate 76 79 Respiratory Rate 17 22 Blood Pressure 99/53 L Pulse Oximetry 95 97 93 L 03/03/18 21:01 03/03/18 22:00 03/03/18 23:00 Temperature Pulse Rate 78 92 H 77 Respiratory Rate 16 22 15 Blood Pressure 108/51 L 107/56 L 92/54 L Pulse Oximetry 94 L 95 92 L 03/04/18 00:00 03/04/18 01:00 03/04/18 02:00 Temperature 98.4 F Pulse Rate 77 74 87 Respiratory Rate 18 19 27 H Blood Pressure 94/63 L 95/52 L 81/53 L Pulse Oximetry 97 97 97 03/04/18 03:00 03/04/18 04:00 03/04/18 04:32 Temperature 98.2 F Pulse Rate 75 86 77 Respiratory Rate 20 19 16 Blood Pressure 93/50 L 88/54 L Pulse Oximetry 96 97 03/04/18 05:00 03/04/18 05:58 03/04/18 06:00 Temperature Pulse Rate 77 80 Respiratory Rate 13 20 26 H Blood Pressure 82/53 L 100/57 L Pulse Oximetry 97 97 03/04/18 07:00 03/04/18 08:00 03/04/18 09:00 Temperature 99.0 F Pulse Rate 76 72 106 H Respiratory Rate 17 15 25 H Blood Pressure 86/54 L 85/54 L 111/55 L Pulse Oximetry 97 95 97 03/04/18 10:00 Temperature Pulse Rate 85 Respiratory Rate 24 Blood Pressure 109/58 L Pulse Oximetry 97 Intake & Output 03/03/18 03/04/18 03/04/18 18:59 06:59 18:59 Intake Total 3855.2 / 3855.2 606 / 606 100 / 100 Output Total 300 / 300 700 / 700 600 / 600 Balance 3555.2 / 3555.2 -94 / -94 -500 / -500 Weight 47.627 kg 49.5 kg Intake: IV 3805.2 / 3805.2 606 / 606 100 / 100 NS Inj 1,000 ML @ 84 mls/hr IV. 494 / 494 506 / 506 CONT .[id number] [facility] Rx#:[id number] Magnesium Sulfate Inj 2 GM In 300 / 300 NS Inj 96 ML @ 50 mls/hr IV.SIG ONCE ONE Rx#:[id number] MVI-12 Inj 10 ML Thiamine Inj 511.2 / 511.2 100 MG Folvite Inj 1 MG In NS Inj 500 ML @ 125 mls/hr IV.SIG Q24H [facility] Rx#:[id number] Zosyn 4.5 GM Premix 4.5 gm In 300 / 300 100 / 100 100 / 100 100 ml @ 200 mls/hr IV.SIG Q6H [facility] Rx#:[id number] KCl 20 mEq Premix Inj 20 meq In 200 / 200 100 ml @ 50 mls/hr IV.SIG Q2H PRN Rx#:[id number] NS Inj 1,000 ML @ Wide Open IV. 1999 SIG BOLUS ONE Rx#:[id number] Oral 50 / 50 0 / 0 0 / 0 Output: Urine 300 / 300 700 / 700 600 / 600 Other: # Voids 1 2 # Bowel Movements 0 0 - Constitutional no acute distress - Routine HEENT Exam Head: Present: normocephalic - Routine Respiratory Exam Present: CTA bilaterally. Absent: accessory muscle use - Routine Cardiovascular Exam Present: RRR - Routine Abdominal Exam Present: soft, normoactive bowel sounds, tenderness. Absent: distended, guarding, firm Comments: Patient reports left lower quadrant tenderness on palpation during exam - Routine Extremities Exam Present: full ROM, pulses intact. Absent: edema - Routine Skin Exam Present: dry, warm, normal turgor. Absent: pallor - Routine Neurological Exam Present: alert, oriented X3 <Adams,Cande - Last Filed: 03/04/18 11:17> Vital signs: Vital Signs 03/03/18 12:11 03/03/18 12:30 03/03/18 12:45 Temperature Pulse Rate 78 85 87 Respiratory Rate 19 31 H Blood Pressure 105/61 Pulse Oximetry 96 97 97 03/03/18 13:00 03/03/18 13:15 03/03/18 13:30 Temperature Pulse Rate 85 81 90 Respiratory Rate 27 H 13 24 Blood Pressure 103/66 107/61 106/65 Pulse Oximetry 97 97 97 03/03/18 13:45 03/03/18 14:00 03/03/18 14:15 Temperature Pulse Rate 84 79 85 Respiratory Rate 26 H 27 H 20 Blood Pressure 104/63 112/62 119/72 Pulse Oximetry 98 98 97 03/03/18 14:30 03/03/18 14:45 03/03/18 15:00 Temperature Pulse Rate 79 85 79 Respiratory Rate 23 25 H 21 Blood Pressure 117/71 115/67 104/56 L Pulse Oximetry 97 98 97 03/03/18 16:00 03/03/18 17:00 03/03/18 17:57 Temperature 98.3 F Pulse Rate 80 90 73 Respiratory Rate 25 H 26 H 18 Blood Pressure 103/55 L 108/62 Pulse Oximetry 98 99 03/03/18 18:00 03/03/18 19:00 03/03/18 19:54 Temperature Pulse Rate 79 86 81 Respiratory Rate 24 28 H 22 Blood Pressure 108/58 L 108/57 L Pulse Oximetry 100 96 03/03/18 19:55 03/03/18 20:00 03/03/18 21:00 Temperature 97.9 F Pulse Rate 76 79 Respiratory Rate 17 22 Blood Pressure 99/53 L Pulse Oximetry 95 97 93 L 03/03/18 21:01 03/03/18 22:00 03/03/18 23:00 Temperature Pulse Rate 78 92 H 77 Respiratory Rate 16 22 15 Blood Pressure 108/51 L 107/56 L 92/54 L Pulse Oximetry 94 L 95 92 L 03/04/18 00:00 03/04/18 01:00 03/04/18 02:00 Temperature 98.4 F Pulse Rate 77 74 87 Respiratory Rate 18 19 27 H Blood Pressure 94/63 L 95/52 L 81/53 L Pulse Oximetry 97 97 97 03/04/18 03:00 03/04/18 04:00 03/04/18 04:32 Temperature 98.2 F Pulse Rate 75 86 77 Respiratory Rate 20 19 16 Blood Pressure 93/50 L 88/54 L Pulse Oximetry 96 97 03/04/18 05:00 03/04/18 05:58 03/04/18 06:00 Temperature Pulse Rate 77 80 Respiratory Rate 13 20 26 H Blood Pressure 82/53 L 100/57 L Pulse Oximetry 97 97 03/04/18 07:00 03/04/18 08:00 03/04/18 09:00 Temperature 99.0 F Pulse Rate 76 72 106 H Respiratory Rate 17 15 25 H Blood Pressure 86/54 L 85/54 L 111/55 L Pulse Oximetry 97 95 97 03/04/18 10:00 Temperature Pulse Rate 85 Respiratory Rate 24 Blood Pressure 109/58 L Pulse Oximetry 97 Intake & Output 03/03/18 03/04/18 03/04/18 18:59 06:59 18:59 Intake Total 3855.2 / 3855.2 606 / 606 100 / 100 Output Total 300 / 300 700 / 700 600 / 600 Balance 3555.2 / 3555.2 -94 / -94 -500 / -500 Weight 47.627 kg 49.5 kg Intake: IV 3805.2 / 3805.2 606 / 606 100 / 100 NS Inj 1,000 ML @ 84 mls/hr IV. 494 / 494 506 / 506 CONT .[id number] [facility] Rx#:[id number] Magnesium Sulfate Inj 2 GM In 300 / 300 NS Inj 96 ML @ 50 mls/hr IV.SIG ONCE ONE Rx#:[id number] MVI-12 Inj 10 ML Thiamine Inj 511.2 / 511.2 100 MG Folvite Inj 1 MG In NS Inj 500 ML @ 125 mls/hr IV.SIG Q24H [facility] Rx#:[id number] Zosyn 4.5 GM Premix 4.5 gm In 300 / 300 100 / 100 100 / 100 100 ml @ 200 mls/hr IV.SIG Q6H [facility] Rx#:[id number] KCl 20 mEq Premix Inj 20 meq In 200 / 200 100 ml @ 50 mls/hr IV.SIG Q2H PRN Rx#:[id number] NS Inj 1,000 ML @ Wide Open IV. 1999 SIG BOLUS ONE Rx#:[id number] Oral 50 / 50 0 / 0 0 / 0 Output: Urine 300 / 300 700 / 700 600 / 600 Other: # Voids 1 2 # Bowel Movements 0 0 <Xiang Pagan - Last Filed: 03/04/18 11:49> Results - Labs CBC & Chem 7: 03/04/18 05:54 03/04/18 05:54 Labs: Laboratory Results - last 24 hr 03/03/18 03/03/18 03/03/18 11:48 11:50 12:25 WBC RBC Hgb Hct MCV MCH MCHC RDW Plt Count MPV Neut % (Auto) Lymph % (Auto) [place] % (Auto) Eos % (Auto) Baso % (Auto) Neut # (Auto) Lymph # (Auto) [place] # (Auto) Eos # (Auto) Baso # (Auto) WBC Differential Differential Comment PT INR APTT Sodium Potassium Chloride Carbon Dioxide Anion Gap BUN Creatinine Estimated GFR POC Glucose Random Glucose Lactic Acid Calcium Phosphorus Magnesium Total Bilirubin AST ALT Alkaline Phosphatase Total Creatine Kinase 37 Total Protein Albumin TSH Urine Color Yellow Urine Clarity Hazy H Urine pH 5.0 Ur Specific Letts 1.057 H Urine Protein Negative Urine Glucose (UA) Negative Urine Ketones 20 Urine Occult Blood Small H Urine Nitrate Negative Urine Bilirubin Negative Urine Urobilinogen Less than 2 Ur Leukocyte Esterase Negative Urine RBC 1 Urine WBC 1 Ur Squamous Epith Cells 5 Hyaline Casts 1 Granular Casts 3 Urine Mucus Few H Micro UA Comment Culture not ind Ur Microscopic Review Not Reportable Urine Culture Comments Culture not ind Nasal Screen MRSA (PCR) Not detected 03/03/18 03/03/18 03/03/18 12:27 13:56 13:56 WBC 14.8 H RBC 3.94 L Hgb 12.4 Hct 37.5 MCV 95.0 MCH 31.5 MCHC 33.1 RDW 15.8 Plt Count 225 MPV 9.0 Neut % (Auto) Lymph % (Auto) [place] % (Auto) Eos % (Auto) Baso % (Auto) Neut # (Auto) Lymph # (Auto) [place] # (Auto) Eos # (Auto) Baso # (Auto) WBC Differential Differential Comment PT INR APTT Sodium Potassium Chloride Carbon Dioxide Anion Gap BUN Creatinine Estimated GFR POC Glucose 110 Random Glucose Lactic Acid 0.7 Calcium Phosphorus Magnesium Total Bilirubin AST ALT Alkaline Phosphatase Total Creatine Kinase Total Protein Albumin TSH Urine Color Urine Clarity Urine pH Ur Specific Letts Urine Protein Urine Glucose (UA) Urine Ketones Urine Occult Blood Urine Nitrate Urine Bilirubin Urine Urobilinogen Ur Leukocyte Esterase Urine RBC Urine WBC Ur Squamous Epith Cells Hyaline Casts Granular Casts Urine Mucus Micro UA Comment Ur Microscopic Review Urine Culture Comments Nasal Screen MRSA (PCR) 03/03/18 03/03/18 03/03/18 18:35 19:44 19:44 WBC 11.1 H RBC 3.53 L Hgb 10.7 L Hct 33.4 L MCV 94.6 MCH 30.4 MCHC 32.1 RDW 16.4 Plt Count 182 MPV 9.2 Neut % (Auto) 87.4 H Lymph % (Auto) 7.2 L [place] % (Auto) 5.3 Eos % (Auto) 0.0 Baso % (Auto) 0.1 Neut # (Auto) 9.7 H Lymph # (Auto) 0.8 L [place] # (Auto) 0.6 Eos # (Auto) 0.0 Baso # (Auto) 0.0 WBC Differential . Differential Comment Auto diff final PT INR APTT Sodium 139 Potassium 4.5 D Chloride 107 Carbon Dioxide 23.0 Anion Gap 9 BUN 16 Creatinine 0.66 Estimated GFR Greater than 89 POC Glucose 123 H Random Glucose 99 Lactic Acid Calcium 8.0 L D Phosphorus 3.5 Magnesium 2.2 D Total Bilirubin AST ALT Alkaline Phosphatase Total Creatine Kinase 58 Total Protein Albumin TSH Urine Color Urine Clarity Urine pH Ur Specific Letts Urine Protein Urine Glucose (UA) Urine Ketones Urine Occult Blood Urine Nitrate Urine Bilirubin Urine Urobilinogen Ur Leukocyte Esterase Urine RBC Urine WBC Ur Squamous Epith Cells Hyaline Casts Granular Casts Urine Mucus Micro UA Comment Ur Microscopic Review Urine Culture Comments Nasal Screen MRSA (PCR) 03/03/18 03/03/18 03/04/18 20:10 23:59 05:43 WBC RBC Hgb Hct MCV MCH MCHC RDW Plt Count MPV Neut % (Auto) Lymph % (Auto) [place] % (Auto) Eos % (Auto) Baso % (Auto) Neut # (Auto) Lymph # (Auto) [place] # (Auto) Eos # (Auto) Baso # (Auto) WBC Differential Differential Comment PT INR APTT Sodium Potassium Chloride Carbon Dioxide Anion Gap BUN Creatinine Estimated GFR POC Glucose 101 97 Random Glucose Lactic Acid 0.7 Calcium Phosphorus Magnesium Total Bilirubin AST ALT Alkaline Phosphatase Total Creatine Kinase Total Protein Albumin TSH Urine Color Urine Clarity Urine pH Ur Specific Letts Urine Protein Urine Glucose (UA) Urine Ketones Urine Occult Blood Urine Nitrate Urine Bilirubin Urine Urobilinogen Ur Leukocyte Esterase Urine RBC Urine WBC Ur Squamous Epith Cells Hyaline Casts Granular Casts Urine Mucus Micro UA Comment Ur Microscopic Review Urine Culture Comments Nasal Screen MRSA (PCR) 03/04/18 03/04/18 03/04/18 05:54 05:54 05:54 WBC 7.8 RBC 3.02 L Hgb 9.4 L Hct 28.8 L MCV 95.1 MCH 31.2 MCHC 32.8 RDW 16.3 Plt Count 147 L MPV 9.0 Neut % (Auto) 84.0 H Lymph % (Auto) 8.5 L [place] % (Auto) 7.1 Eos % (Auto) 0.3 Baso % (Auto) 0.1 Neut # (Auto) 6.6 Lymph # (Auto) 0.7 L [place] # (Auto) 0.6 Eos # (Auto) 0.0 Baso # (Auto) 0.0 WBC Differential . Differential Comment Auto diff final PT 11.6 INR 1.1 APTT 37.5 H D Sodium 139 Potassium 4.1 Chloride 108 H Carbon Dioxide 22.9 Anion Gap 8 BUN 13 Creatinine 0.56 Estimated GFR Greater than 89 POC Glucose Random Glucose 84 Lactic Acid Calcium 7.7 L Phosphorus 2.3 L D Magnesium 1.8 Total Bilirubin 0.4 AST 12 L ALT 12 Alkaline Phosphatase 56 Total Creatine Kinase Total Protein 5.7 L Albumin 2.5 L TSH 1.260 Urine Color Urine Clarity Urine pH Ur Specific Letts Urine Protein Urine Glucose (UA) Urine Ketones Urine Occult Blood Urine Nitrate Urine Bilirubin Urine Urobilinogen Ur Leukocyte Esterase Urine RBC Urine WBC Ur Squamous Epith Cells Hyaline Casts Granular Casts Urine Mucus Micro UA Comment Ur Microscopic Review Urine Culture Comments Nasal Screen MRSA (PCR) 03/04/18 05:54 WBC RBC Hgb Hct MCV MCH MCHC RDW Plt Count MPV Neut % (Auto) Lymph % (Auto) [place] % (Auto) Eos % (Auto) Baso % (Auto) Neut # (Auto) Lymph # (Auto) [place] # (Auto) Eos # (Auto) Baso # (Auto) WBC Differential Differential Comment PT INR APTT Sodium Potassium Chloride Carbon Dioxide Anion Gap BUN Creatinine Estimated GFR POC Glucose Random Glucose Lactic Acid 0.7 Calcium Phosphorus Magnesium Total Bilirubin AST ALT Alkaline Phosphatase Total Creatine Kinase Total Protein Albumin TSH Urine Color Urine Clarity Urine pH Ur Specific Letts Urine Protein Urine Glucose (UA) Urine Ketones Urine Occult Blood Urine Nitrate Urine Bilirubin Urine Urobilinogen Ur Leukocyte Esterase Urine RBC Urine WBC Ur Squamous Epith Cells Hyaline Casts Granular Casts Urine Mucus Micro UA Comment Ur Microscopic Review Urine Culture Comments Nasal Screen MRSA (PCR) <Cande Adams - Last Filed: 03/04/18 11:17> - Labs CBC & Chem 7: 03/04/18 05:54 03/04/18 05:54 Labs: Laboratory Results - last 24 hr 03/03/18 03/03/18 03/03/18 11:48 11:50 12:25 WBC RBC Hgb Hct MCV MCH MCHC RDW Plt Count MPV Neut % (Auto) Lymph % (Auto) [place] % (Auto) Eos % (Auto) Baso % (Auto) Neut # (Auto) Lymph # (Auto) [place] # (Auto) Eos # (Auto) Baso # (Auto) WBC Differential Differential Comment PT INR APTT Sodium Potassium Chloride Carbon Dioxide Anion Gap BUN Creatinine Estimated GFR POC Glucose Random Glucose Lactic Acid Calcium Phosphorus Magnesium Total Bilirubin AST ALT Alkaline Phosphatase Total Creatine Kinase 37 Total Protein Albumin TSH Urine Color Yellow Urine Clarity Hazy H Urine pH 5.0 Ur Specific Letts 1.057 H Urine Protein Negative Urine Glucose (UA) Negative Urine Ketones 20 Urine Occult Blood Small H Urine Nitrate Negative Urine Bilirubin Negative Urine Urobilinogen Less than 2 Ur Leukocyte Esterase Negative Urine RBC 1 Urine WBC 1 Ur Squamous Epith Cells 5 Hyaline Casts 1 Granular Casts 3 Urine Mucus Few H Micro UA Comment Culture not ind Ur Microscopic Review Not Reportable Urine Culture Comments Culture not ind Nasal Screen MRSA (PCR) Not detected 03/03/18 03/03/18 03/03/18 12:27 13:56 13:56 WBC 14.8 H RBC 3.94 L Hgb 12.4 Hct 37.5 MCV 95.0 MCH 31.5 MCHC 33.1 RDW 15.8 Plt Count 225 MPV 9.0 Neut % (Auto) Lymph % (Auto) [place] % (Auto) Eos % (Auto) Baso % (Auto) Neut # (Auto) Lymph # (Auto) [place] # (Auto) Eos # (Auto) Baso # (Auto) WBC Differential Differential Comment PT INR APTT Sodium Potassium Chloride Carbon Dioxide Anion Gap BUN Creatinine Estimated GFR POC Glucose 110 Random Glucose Lactic Acid 0.7 Calcium Phosphorus Magnesium Total Bilirubin AST ALT Alkaline Phosphatase Total Creatine Kinase Total Protein Albumin TSH Urine Color Urine Clarity Urine pH Ur Specific Letts Urine Protein Urine Glucose (UA) Urine Ketones Urine Occult Blood Urine Nitrate Urine Bilirubin Urine Urobilinogen Ur Leukocyte Esterase Urine RBC Urine WBC Ur Squamous Epith Cells Hyaline Casts Granular Casts Urine Mucus Micro UA Comment Ur Microscopic Review Urine Culture Comments Nasal Screen MRSA (PCR) 03/03/18 03/03/18 03/03/18 18:35 19:44 19:44 WBC 11.1 H RBC 3.53 L Hgb 10.7 L Hct 33.4 L MCV 94.6 MCH 30.4 MCHC 32.1 RDW 16.4 Plt Count 182 MPV 9.2 Neut % (Auto) 87.4 H Lymph % (Auto) 7.2 L [place] % (Auto) 5.3 Eos % (Auto) 0.0 Baso % (Auto) 0.1 Neut # (Auto) 9.7 H Lymph # (Auto) 0.8 L [place] # (Auto) 0.6 Eos # (Auto) 0.0 Baso # (Auto) 0.0 WBC Differential . Differential Comment Auto diff final PT INR APTT Sodium 139 Potassium 4.5 D Chloride 107 Carbon Dioxide 23.0 Anion Gap 9 BUN 16 Creatinine 0.66 Estimated GFR Greater than 89 POC Glucose 123 H Random Glucose 99 Lactic Acid Calcium 8.0 L D Phosphorus 3.5 Magnesium 2.2 D Total Bilirubin AST ALT Alkaline Phosphatase Total Creatine Kinase 58 Total Protein Albumin TSH Urine Color Urine Clarity Urine pH Ur Specific Letts Urine Protein Urine Glucose (UA) Urine Ketones Urine Occult Blood Urine Nitrate Urine Bilirubin Urine Urobilinogen Ur Leukocyte Esterase Urine RBC Urine WBC Ur Squamous Epith Cells Hyaline Casts Granular Casts Urine Mucus Micro UA Comment Ur Microscopic Review Urine Culture Comments Nasal Screen MRSA (PCR) 03/03/18 03/03/18 03/04/18 20:10 23:59 05:43 WBC RBC Hgb Hct MCV MCH MCHC RDW Plt Count MPV Neut % (Auto) Lymph % (Auto) [place] % (Auto) Eos % (Auto) Baso % (Auto) Neut # (Auto) Lymph # (Auto) [place] # (Auto) Eos # (Auto) Baso # (Auto) WBC Differential Differential Comment PT INR APTT Sodium Potassium Chloride Carbon Dioxide Anion Gap BUN Creatinine Estimated GFR POC Glucose 101 97 Random Glucose Lactic Acid 0.7 Calcium Phosphorus Magnesium Total Bilirubin AST ALT Alkaline Phosphatase Total Creatine Kinase Total Protein Albumin TSH Urine Color Urine Clarity Urine pH Ur Specific Letts Urine Protein Urine Glucose (UA) Urine Ketones Urine Occult Blood Urine Nitrate Urine Bilirubin Urine Urobilinogen Ur Leukocyte Esterase Urine RBC Urine WBC Ur Squamous Epith Cells Hyaline Casts Granular Casts Urine Mucus Micro UA Comment Ur Microscopic Review Urine Culture Comments Nasal Screen MRSA (PCR) 03/04/18 03/04/18 03/04/18 05:54 05:54 05:54 WBC 7.8 RBC 3.02 L Hgb 9.4 L Hct 28.8 L MCV 95.1 MCH 31.2 MCHC 32.8 RDW 16.3 Plt Count 147 L MPV 9.0 Neut % (Auto) 84.0 H Lymph % (Auto) 8.5 L [place] % (Auto) 7.1 Eos % (Auto) 0.3 Baso % (Auto) 0.1 Neut # (Auto) 6.6 Lymph # (Auto) 0.7 L [place] # (Auto) 0.6 Eos # (Auto) 0.0 Baso # (Auto) 0.0 WBC Differential . Differential Comment Auto diff final PT 11.6 INR 1.1 APTT 37.5 H D Sodium 139 Potassium 4.1 Chloride 108 H Carbon Dioxide 22.9 Anion Gap 8 BUN 13 Creatinine 0.56 Estimated GFR Greater than 89 POC Glucose Random Glucose 84 Lactic Acid Calcium 7.7 L Phosphorus 2.3 L D Magnesium 1.8 Total Bilirubin 0.4 AST 12 L ALT 12 Alkaline Phosphatase 56 Total Creatine Kinase Total Protein 5.7 L Albumin 2.5 L TSH 1.260 Urine Color Urine Clarity Urine pH Ur Specific Letts Urine Protein Urine Glucose (UA) Urine Ketones Urine Occult Blood Urine Nitrate Urine Bilirubin Urine Urobilinogen Ur Leukocyte Esterase Urine RBC Urine WBC Ur Squamous Epith Cells Hyaline Casts Granular Casts Urine Mucus Micro UA Comment Ur Microscopic Review Urine Culture Comments Nasal Screen MRSA (PCR) 03/04/18 03/04/18 05:54 11:46 WBC RBC Hgb Hct MCV MCH MCHC RDW Plt Count MPV Neut % (Auto) Lymph % (Auto) [place] % (Auto) Eos % (Auto) Baso % (Auto) Neut # (Auto) Lymph # (Auto) [place] # (Auto) Eos # (Auto) Baso # (Auto) WBC Differential Differential Comment PT INR APTT Sodium Potassium Chloride Carbon Dioxide Anion Gap BUN Creatinine Estimated GFR POC Glucose 80 Random Glucose Lactic Acid 0.7 Calcium Phosphorus Magnesium Total Bilirubin AST ALT Alkaline Phosphatase Total Creatine Kinase Total Protein Albumin TSH Urine Color Urine Clarity Urine pH Ur Specific Letts Urine Protein Urine Glucose (UA) Urine Ketones Urine Occult Blood Urine Nitrate Urine Bilirubin Urine Urobilinogen Ur Leukocyte Esterase Urine RBC Urine WBC Ur Squamous Epith Cells Hyaline Casts Granular Casts Urine Mucus Micro UA Comment Ur Microscopic Review Urine Culture Comments Nasal Screen MRSA (PCR) <Xiang Pagan - Last Filed: 03/04/18 11:49> Assessment and Plan (1) Abdominal pain Status: Acute Code(s): R10.9 - Unspecified abdominal pain (2) Gastroesophageal reflux disease Status: Chronic Code(s): K21.9 - Gastro-esophageal reflux disease without esophagitis - Plan This patient is a 47-year-old female who presented to the emergency room at [facility] on 03/03/2018. Past medical history includes gastric bypass in 2010 with a GJ perforation with omental patch by Dr. Roy 2014. Patient also has history of depression, gastroesophageal reflux, perforated bowel, hypertension, COPD, use of tobacco and prior alcohol abuse. Surgical history includes Cristofer-en-Y gastric bypass, bowel resection, lobectomy of lung, and wrist surgery. Upon consultation, patient reports 2-day history of constant sharp pain across lower abdomen that she rated as 9 out of 10. Denies any alleviating or aggravating factors. Patient also endorses heartburn with acid reflux for 2 days. States she vomited x 2 a yellow biliary emesis. Patient reports gnawing epigastric pain at this time. She rates it at 4/10, states it is constant and burning in nature. She reports history of GERD for which she takes Protonix 40 mg p.o. twice daily . She states it is controlled by the administered pain medication Dilaudid. Last EGD per patient was done in 2017 and was unremarkable per her recollection. Patient denies any difficulty or pain with swallowing. Patient states she normally has a BM every 2-4 days. She states stools are normally brown and hard without any noted bleeding. She takes stool softeners nightly to alleviate this. Patient states she is a cigarette smoker half a pack per day and states that she ingest alcohol socially or on special occasions only. Patient denies any known family history of any gastrointestinal disorders. Our practice has been consulted to evaluate patient's presenting symptoms. History of perforated ulcer ?Jejunitis History of Cristofer-en-Y in 2010 with GJ perforation and omental patch 2014 Epigastric pain, reporting acid reflux while being on Protonix 40 mg p.o. twice daily 03/03/2018 CT abdomen and pelvis revealed the following findings: 1. Abnormal proximal small bowel with dilatation and wall thickening.There is no definite obstruction.The finding is nonspecific and could be infectious or inflammatory. There are postsurgical changes consistent with partial bowel resection. 2. Small to moderate amount of ascitic fluid greatest in the pelvis. 3. Status post cholecystectomy. WBC on admission 16.3 now resolving leukocytosis, today 7.8. Hemoglobin 9.4 hematocrit 28.8 INR 1.1 total bilirubin 0.4 AST 12 ALT 12 alk phos 56. Plan -Clear liquid diet -Possible gastritis -Continue PPI -Antiemetics analgesics as per attending -Continue Carafate -IV hydration -Bowel regimen -Possible endoscopy -Supportive care -Further recommendations to follow This patient has been seen by myself and Dr. Grimaldo and this note is written on his behalf - Attending Attestation <Cande Adams - Last Filed: 03/04/18 11:17> (1) Abdominal pain Status: Acute Code(s): R10.9 - Unspecified abdominal pain (2) Gastroesophageal reflux disease Status: Chronic Code(s): K21.9 - Gastro-esophageal reflux disease without esophagitis - Attending Attestation Patient was seen and examined, agree with above note, patient discomfort multiple abdominal surgeries, could be peptic ulcer disease, could be gastroenteritis or colitis Plan to do upper endoscopy and colonoscopy, we will plan on doing that tomorrow <Xiang Pagan - Last Filed: 03/04/18 11:49> <Cande Adams - Last Filed: 03/04/18 11:17> (1) Abdominal pain Qualifiers: Abdominal location: left lower quadrant Qualified Code(s): R10.32 - Left lower quadrant pain <Xiang Pagan - Last Filed: 03/04/18 11:49> (1) Abdominal pain Qualifiers: Abdominal location: left lower quadrant Qualified Code(s): R10.32 - Left lower quadrant pain
[2018-03-04] MEDS ORDERED: PEG 3350/E-Lyte Soln 4000 ML Bottle PO ONE (12:00)
[2018-03-04] MEDS: Multivitamin Inj 10 ML, Thiamine Inj 100 MG, Folic Acid Inj 1 MG in Sodium Chlor 0.9% I... IV.SIG SCH (12:04)
--- NOTE | 2018-03-04 13:22 | P.PNCC ---
Subjective Subjective Remarks/Hospital Course: This is a 47-year-old female. 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 Roy 2014, depression, gastroesophageal disease, history of tobaccoism and prior alcoholism. Patient presents to [facility] with a 2-day history of left lower quadrant abdominal pain. Poor appetite. Patient states the pain is currently a 10 out of 10. Without radiation. Sharp in nature. Patient was hypotensive on arrival probably due to dehydration and received 2 L normal saline. A central line has been placed in the left IJ without complication. Patient did have a leukocytosis, low potassium and low magnesium. CT scan of pelvis revealed a hiatal hernia. Small bowel edema probably 1 cm. Left lower quadrant. Surgery has been counseled. Lactate was normal at 1.4. Her electrolytes are currently being repleted. She still complaining of abdominal pain but does not appear septic the present time. We are asked to admit with consultation to gastric surgery in place Subjective 03/04: Abdominal pain much improved. Started on clear liquid diet per general surgery. GI for endoscopy tomorrow. Appears much more stable. Objective Vital Signs / I&O: Vital Signs 03/03/18 13:30 03/03/18 13:45 03/03/18 14:00 Temperature Pulse Rate 90 84 79 Respiratory Rate 24 26 H 27 H Blood Pressure 106/65 104/63 112/62 Pulse Oximetry 97 98 98 03/03/18 14:15 03/03/18 14:30 03/03/18 14:45 Temperature Pulse Rate 85 79 85 Respiratory Rate 20 23 25 H Blood Pressure 119/72 117/71 115/67 Pulse Oximetry 97 97 98 03/03/18 15:00 03/03/18 16:00 03/03/18 17:00 Temperature 98.3 F Pulse Rate 79 80 90 Respiratory Rate 21 25 H 26 H Blood Pressure 104/56 L 103/55 L 108/62 Pulse Oximetry 97 98 99 03/03/18 17:57 03/03/18 18:00 03/03/18 19:00 Temperature Pulse Rate 73 79 86 Respiratory Rate 18 24 28 H Blood Pressure 108/58 L 108/57 L Pulse Oximetry 100 96 03/03/18 19:54 03/03/18 19:55 03/03/18 20:00 Temperature 97.9 F Pulse Rate 81 76 Respiratory Rate 22 17 Blood Pressure 99/53 L Pulse Oximetry 95 97 03/03/18 21:00 03/03/18 21:01 03/03/18 22:00 Temperature Pulse Rate 79 78 92 H Respiratory Rate 22 16 22 Blood Pressure 108/51 L 107/56 L Pulse Oximetry 93 L 94 L 95 03/03/18 23:00 03/04/18 00:00 03/04/18 01:00 Temperature 98.4 F Pulse Rate 77 77 74 Respiratory Rate 15 18 19 Blood Pressure 92/54 L 94/63 L 95/52 L Pulse Oximetry 92 L 97 97 03/04/18 02:00 03/04/18 03:00 03/04/18 04:00 Temperature 98.2 F Pulse Rate 87 75 86 Respiratory Rate 27 H 20 19 Blood Pressure 81/53 L 93/50 L 88/54 L Pulse Oximetry 97 96 97 03/04/18 04:32 03/04/18 05:00 03/04/18 05:58 Temperature Pulse Rate 77 77 Respiratory Rate 16 13 20 Blood Pressure 82/53 L Pulse Oximetry 97 03/04/18 06:00 03/04/18 07:00 03/04/18 08:00 Temperature 99.0 F Pulse Rate 80 76 72 Respiratory Rate 26 H 17 15 Blood Pressure 100/57 L 86/54 L 85/54 L Pulse Oximetry 97 97 95 03/04/18 09:00 03/04/18 10:00 03/04/18 11:00 Temperature Pulse Rate 106 H 85 90 Respiratory Rate 25 H 24 19 Blood Pressure 111/55 L 109/58 L 90/51 L Pulse Oximetry 97 97 96 03/04/18 12:00 Temperature 98.5 F Pulse Rate 102 H Respiratory Rate 21 Blood Pressure 107/57 L Pulse Oximetry 100 Intake & Output 03/03/18 03/04/18 03/04/18 18:59 06:59 18:59 Intake Total 3855.2 / 3855.2 606 / 606 1200 / 1200 Output Total 300 / 300 700 / 700 600 / 600 Balance 3555.2 / 3555.2 -94 / -94 600 / 600 Weight 47.627 kg 49.5 kg Intake: IV 3805.2 / 3805.2 606 / 606 1200 / 1200 NS Inj 1,000 ML @ 84 mls/hr IV. 494 / 494 506 / 506 1000 / 1000 CONT .[id number] [facility] Rx#:[id number] Magnesium Sulfate Inj 2 GM In 300 / 300 NS Inj 96 ML @ 50 mls/hr IV.SIG ONCE ONE Rx#:[id number] MVI-12 Inj 10 ML Thiamine Inj 511.2 / 511.2 100 MG Folvite Inj 1 MG In NS Inj 500 ML @ 125 mls/hr IV.SIG Q24H [facility] Rx#:[id number] Zosyn 4.5 GM Premix 4.5 gm In 300 / 300 100 / 100 200 / 200 100 ml @ 200 mls/hr IV.SIG Q6H [facility] Rx#:[id number] KCl 20 mEq Premix Inj 20 meq In 200 / 200 100 ml @ 50 mls/hr IV.SIG Q2H PRN Rx#:[id number] NS Inj 1,000 ML @ Wide Open IV. 1999 / 1999 [facility] BOLUS ONE Rx#:[id number] Oral 50 / 50 0 / 0 0 / 0 Output: Urine 300 / 300 700 / 700 600 / 600 Other: # Voids 1 2 # Bowel Movements 0 0 Result Diagrams: 03/04/18 05:54 03/04/18 05:54 Other Results: Microbiology 03/03/18 06:45 Blood - Peripheral Aerobic Blood Culture - Preliminary No growth in 1 day 03/03/18 06:45 Blood - Peripheral Anaerobic Blood Culture - Preliminary No growth in 1 day 03/03/18 06:55 Blood - Peripheral Aerobic Blood Culture - Preliminary No growth in 1 day 03/03/18 06:55 Blood - Peripheral Anaerobic Blood Culture - Preliminary No growth in 1 day Imaging: Chest X-Ray 03/03/18 06:43 CONCLUSION: 1. Left IJ central venous catheter with tip in the superior vena cava. No pneumothorax. 2. No acute infiltrate. Scattered parenchymal opacities and bronchiectasis/ scarring not significantly changed. Abdomen/Pelvis CT 03/03/18 06:49 CONCLUSION: 1. Abnormal proximal small bowel with dilatation and wall thickening. There is no definite obstruction. The finding is nonspecific and could be infectious or inflammatory. There are postsurgical changes consistent with partial bowel resection. 2. Small to moderate amount of ascitic fluid greatest in the pelvis. 3. Status post cholecystectomy. Objective Remarks: GENERAL: 47-year-old female resting in bed in no acute distress SKIN: Warm and dry. HEAD: Atraumatic. Normocephalic. EYES: Pupils equal and round. No scleral icterus. No injection or drainage. ENT: No nasal bleeding or discharge. Mucous membranes pink and moist. NECK: Trachea midline. No JVD. Left IJ CVL is clean dry and intact CARDIOVASCULAR: Regular rate and rhythm. S1, S2. No S4. No murmur RESPIRATORY: No accessory muscle use. Clear to auscultation. Breath sounds equal bilaterally. GASTROINTESTINAL: Abdomen soft, nondistended. Prior scarring from abdominal surgeries noted. Tender to left lower quadrant without guarding rigidity. Hypoactive bowel sounds are appreciated. MUSCULOSKELETAL: Extremities without clubbing, cyanosis, or edema. No obvious deformities. NEUROLOGICAL: Awake and alert. No obvious cranial nerve deficits. Motor grossly within normal limits. Five out of 5 muscle strength in the arms and legs. Normal speech. PSYCHIATRIC: Appropriate mood and affect; insight and judgment normal. Assessment and Plan - Problem List (1) Abdominal pain Code(s): R10.9 - Unspecified abdominal pain Status: Acute (2) Leukocytosis Code(s): D72.829 - Elevated white blood cell count, unspecified Status: Acute (3) Hypokalemia Code(s): E87.6 - Hypokalemia Status: Acute (4) Hypomagnesemia Code(s): E83.42 - Hypomagnesemia Status: Acute (5) Hiatal hernia Code(s): K44.9 - Diaphragmatic hernia without obstruction or gangrene Status: Chronic (6) Depression Code(s): F32.9 - Major depressive disorder, single episode, unspecified Status : Chronic (7) Gastroesophageal reflux disease Code(s): K21.9 - Gastro-esophageal reflux disease without esophagitis Status: Chronic (8) History of DVT (deep vein thrombosis) Code(s): Z86.718 - Personal history of other venous thrombosis and embolism Status: Chronic - Assessment and Plan Plan: Neuro/Psych: History of EtOH Depressive disorder NOS Acetaminophen 650 p.o. every 6 hours as needed fever Hydromorphone 1 mg every 2 hours as needed pain CV: Initial presentation with hypotension History of hypertension Received 2 L normal saline in ED. Lactate is currently 0.7 Currently normal saline 84 cc an hour. Discontinue 03/04 Monitor with telemetry in ICU Resp: Ongoing tobaccoism Nasal cannula to maintain saturations greater than or equal to 92% Incentive spirometry while awake Tobacco sensation self-evaluation booklet will be provided when appropriate Albuterol/ipratropium aerosols every 6 hours with albuterol aerosols every 2 hours as needed dyspnea GI: Abdominal pain Hiatal hernia Hypoalbuminemia 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 1 cm small bowel wall edema. Dr. Lutz was contacted GI to evaluate for endoscopy 03/05 Serial abdominal examinations Clear liquid diet pantoprazole 40 mg IV twice daily for GI prophylaxis/home medication Docusate serum/senna 1 tablet twice daily for bowel regimen : Straight catheterization every 6 hours as needed Endo: Sliding scale insulin Accu-Cheks to maintain euglycemia/aspart insulin every 6 hours low regimen Check TSH - 1.26 Renal: Creatinine currently within normal limits Accurate I's and O's Monitor urine output Heme: Normocytic anemia Monitor CBC daily. Follow trends. No indication for transfusion of blood products at this time ID: Monitor for signs and since hematology infection FEN: Acute hypophosphatemia Replace electrolytes per ICU electrolyte protocol. MSK: Physical therapy evaluate and treat Access -Utilize peripheral IV. Central line if indicated Prophylaxis -GI -pantoprazole -DVT -SCD/heparin subcu Level 3 admission (1) Abdominal pain Qualifiers: Abdominal location: left lower quadrant Qualified Code(s): R10.32 - Left lower quadrant pain (2) Leukocytosis Qualifiers: Leukocytosis type: unspecified Qualified Code(s): D72.829 - Elevated white blood cell count, unspecified (6) Depression Qualifiers: Depression Type: major depressive disorder Major depression recurrence: recurrent Active/Remission status: remission status unspecified Qualified Code (s): F33.9 - Major depressive disorder, recurrent, unspecified (7) Gastroesophageal reflux disease Qualifiers: Esophagitis presence: esophagitis presence not specified Qualified Code(s): K21.9 - Gastro-esophageal reflux disease without esophagitis
[2018-03-04] MEDS ORDERED: Potassium Phos/Sodium Phos 250 MG Tablet PO ONE (13:30)
[2018-03-05] MEDS: Insulin NovoLOG Aspart Correctional Sugar Inj SQ SCH ×4 (00:39→18:09)
[2018-03-05] MEDS: Heparin - SQ 10,000 UNITS/ML Vial SQ SCH ×2 (00:39→11:08)
[2018-03-05] MEDS: Piperacil/Tazo 4.5 GM Premix 4.5 GM/100 ML BAG IV.SIG SCH ×4 (00:41→18:09)
[2018-03-05] MEDS: Pantoprazole Inj 40 MG Vial IV.PUSH SCH ×2 (00:41→11:21)
[2018-03-05] MEDS: HYDROmorphone PF Inj 2 MG/ML Vial IV.PUSH PRN ×5 (01:07→17:47)
[2018-03-05] MEDS: Chlorhexidine Gluconate 2% 1 Pack (2 Cloths) TOPICAL SCH (04:05)
[2018-03-05 06:03] LABS: Baso % (Auto) 0.2 % (0.0-2.0); Eos % (Auto) 0.5 % (0.0-4.0); Hematocrit 32.5 % (35.0-46.0); Hemoglobin 10.7 gm/dL (11.6-15.3); Lymph # (Auto) 0.8 th/mm3 (1.0-4.8); Lymph % (Auto) 7.7 % (9.0-44.0); Mean Corpuscular HGB Conc 32.8 % (32.0-36.0); Mean Corpuscular Hemoglobin 31.5 pg (27.0-34.0); Mean Platelet Volume 9.1 fL (7.0-11.0); Mono # (Auto) 0.6 th/mm3 (0.0-0.9); Mono % (Auto) 5.9 % (0.0-8.0); Neut # (Auto) 8.5 th/mm3 (1.8-7.7); Neut % (Auto) 85.7 % (16.0-70.0); Platelet Count 139 th/mm3 (150-450); Red Blood Count 3.38 mil/mm3 (4.00-5.30); Red Cell Distribution Width 16.6 % (11.6-17.2); White Blood Count 9.9 th/mm3 (4.0-11.0)
[2018-03-05 06:12] LABS: Alanine Aminotransferase 15 U/L (10-53); Albumin 2.6 g/dL (3.4-5.0); Alkaline Phosphatase 78 U/L (45-117); Anion Gap 11 meq/L (5-15); Aspartate Aminotransferase 26 U/L (15-37); Blood Urea Nitrogen 6 mg/dL (7-18); Calcium 7.8 mg/dL (8.5-10.1); Carbon Dioxide 24.5 meq/L (21.0-32.0); Chloride 104 meq/L (98-107); Glomerular Filtration Rate Greater Than 89 mL/min (>89); Glucose,Random 70 mg/dL (74-106); Magnesium 1.6 mg/dL (1.5-2.5); Potassium 3.9 meq/L (3.5-5.1); Total Protein 6.2 g/dL (6.4-8.2)
[2018-03-05 06:14] LABS: Sodium 139 meq/L (136-145)
[2018-03-05] MEDS: Senna/Docusate Sodium 8.6/50 MG Tablet PO SCH ×2 (08:40→21:27)
--- NOTE | 2018-03-05 10:38 | P.PCN ---
Date of procedure: 03/05/18 Pre-op diagnosis: Abdominal pain, abnormal findings on CT Procedure: PROCEDURE PERFORMED EGD with biopsies followed by colonoscopy PROCEDURE: The procedure, risks and benefits were discussed with Patient/POA and informed consent was obtained. Anesthesia sedated Patient with Diprivan. Patient was placed in the left lateral decubitus position. EGD: The Pentax videoscope was introduced through the oropharynx and advanced to the second portion of the duodenum under direct visualization. Retroflexion was performed in the stomach. FINDINGS: The esophagus this appeared to be unremarkable with normal limits The stomach there were surgical changes consistent with antrectomy and gastroduodenal or jejunal anastomosis the anastomosis was inflamed tight edematous with ulceration this was biopsied the gastric mucosa was otherwise unremarkable I was still able to advance the scope through the anastomosis with relative ease The duodenum/small bowel this appeared to be unremarkable and within normal limits Colonoscopy: The Pentax videoscope was introduced through the rectum and advanced to cecum where the ileocecal valve and appendiceal orifice were identified. Retroflexion was performed in the rectum. Colonic prep was fair FINDINGS: Colonic withdrawal time greater than 6 minutes. As the scope was slowly withdrawn colonic mucosa was carefully inspected colonic mucosa appeared to be unremarkable with normal limits all the way through so is retroflexion and rectal examination ESTIMATED BLOOD LOSS: None SPECIMENS REMOVED: Anastomotic biopsies from the gastro duodenal/jejunal anastomosis COMPLICATIONS: None IMPRESSION: Anastomotic ulceration with edema and probable compromise the lumen Otherwise unremarkable EGD and unremarkable colonoscopy PLAN: Await biopsies Continue PPI Advance diet to a low residue diet EGD in 2 months Continue with current supportive care Anesthesia: MAC Surgeon: Deon Denton Condition: stable Disposition: floor
--- NOTE | 2018-03-05 11:20 | P.PNIM ---
Subjective Interval history: The pt was about to go for EGD and colonoscopy. She had no acute complaints. Bowel movements have been clear. Pain is controlled. Discussed with nursing at the bedside. Physical Exam Vital signs: Vital Signs 03/04/18 12:00 03/04/18 13:00 03/04/18 14:00 Temperature 98.5 F Pulse Rate 102 H 90 96 H Respiratory Rate 21 17 19 Blood Pressure 107/57 L 97/57 L 103/56 L Pulse Oximetry 100 98 100 03/04/18 15:00 03/04/18 16:00 03/04/18 17:07 Temperature 98.4 F Pulse Rate 121 H 108 H 127 H Respiratory Rate 23 19 19 Blood Pressure 135/71 108/57 L Pulse Oximetry 99 94 L 03/04/18 18:00 03/04/18 19:00 03/04/18 20:00 Temperature 98.3 F Pulse Rate 119 H 109 H 126 H Respiratory Rate 26 H 24 35 H Blood Pressure 108/62 110/67 Pulse Oximetry 99 98 96 03/04/18 21:00 03/04/18 22:00 03/04/18 22:34 Temperature Pulse Rate 106 H 109 H Respiratory Rate 19 24 16 Blood Pressure 103/56 L 91/51 L Pulse Oximetry 93 L 94 L 03/04/18 23:00 03/05/18 00:00 03/05/18 00:17 Temperature 98.8 F Pulse Rate 102 H 120 H Respiratory Rate 16 17 16 Blood Pressure 92/53 L 95/62 L Pulse Oximetry 94 L 100 03/05/18 01:04 03/05/18 01:06 03/05/18 01:50 Temperature Pulse Rate 135 H 118 H Respiratory Rate 20 25 H 16 Blood Pressure 109/63 Pulse Oximetry 99 03/05/18 02:00 03/05/18 02:36 03/05/18 03:05 Temperature Pulse Rate 108 H 105 H 114 H Respiratory Rate 29 H 21 Blood Pressure 100/60 Pulse Oximetry 87 L 98 03/05/18 03:14 03/05/18 04:01 03/05/18 04:10 Temperature 98.5 F Pulse Rate 97 H 136 H 98 H Respiratory Rate 16 44 H 16 Blood Pressure 91/55 L 102/51 L Pulse Oximetry 97 97 03/05/18 05:07 Temperature Pulse Rate 86 Respiratory Rate 18 Blood Pressure Pulse Oximetry Intake & Output 03/04/18 03/05/18 03/05/18 18:59 06:59 18:59 Intake Total 2699.2 / 2699.2 100 / 100 200 / 200 Output Total 2049 Balance 649.2 / 649.2 100 / 100 200 / 200 Weight 49.5 kg Intake: IV 1979.2 / 1979.2 100 / 100 NS Inj 1,000 ML @ 84 mls/hr IV. 1168 / 1168 CONT .[id number] OJ Rx#:[id number] MVI-12 Inj 10 ML Thiamine Inj 511.2 / 511.2 100 MG Folvite Inj 1 MG In NS Inj 500 ML @ 125 mls/hr IV.SIG Q24H OJ Rx#:[id number] Zosyn 4.5 GM Premix 4.5 gm In 300 / 300 100 / 100 100 ml @ 200 mls/hr IV.SIG Q6H OJ Rx#:[id number] Oral 720 / 720 Anesthesia Amount 200 / 200 Output: Urine 2049 Other: # Voids 2 # Bowel Movements 1 Narrative: GENERAL: In no acute distress. SKIN: Warm and dry. HEAD: Atraumatic. Normocephalic. EYES: Pupils equal and round. No scleral icterus. No injection or drainage. ENT: No nasal bleeding or discharge. Mucous membranes pink and moist. NECK: Trachea midline. No JVD. Left IJ CVL is clean dry and intact CARDIOVASCULAR: Regular rate and rhythm. S1, S2. No S4. No murmur RESPIRATORY: No accessory muscle use. Clear to auscultation. Breath sounds equal bilaterally. GASTROINTESTINAL: Abdomen soft, nondistended. Prior scarring from abdominal surgeries noted. Nontender. MUSCULOSKELETAL: Extremities without clubbing, cyanosis, or edema. No obvious deformities. NEUROLOGICAL: Awake and alert. No obvious cranial nerve deficits. Motor grossly within normal limits. Five out of 5 muscle strength in the arms and legs. Normal speech. Results - Labs CBC & Chem 7: 03/05/18 05:25 03/05/18 05:25 Laboratory Results - last 24 hr 03/04/18 03/04/18 03/05/18 11:46 17:42 00:35 WBC RBC Hgb Hct MCV MCH MCHC RDW Plt Count MPV Neut % (Auto) Lymph % (Auto) [place] % (Auto) Eos % (Auto) Baso % (Auto) Neut # (Auto) Lymph # (Auto) [place] # (Auto) Eos # (Auto) Baso # (Auto) WBC Differential Differential Comment Sodium Potassium Chloride Carbon Dioxide Anion Gap BUN Creatinine Estimated GFR POC Glucose 80 89 87 Random Glucose Lactic Acid Calcium Phosphorus Magnesium Total Bilirubin AST ALT Alkaline Phosphatase Total Protein Albumin 03/05/18 03/05/18 03/05/18 05:22 05:25 05:25 WBC 9.9 RBC 3.38 L Hgb 10.7 L Hct 32.5 L MCV 96.0 MCH 31.5 MCHC 32.8 RDW 16.6 Plt Count 139 L MPV 9.1 Neut % (Auto) 85.7 H Lymph % (Auto) 7.7 L [place] % (Auto) 5.9 Eos % (Auto) 0.5 Baso % (Auto) 0.2 Neut # (Auto) 8.5 H Lymph # (Auto) 0.8 L [place] # (Auto) 0.6 Eos # (Auto) 0.0 Baso # (Auto) 0.0 WBC Differential . Differential Comment Auto diff final Sodium 139 Potassium 3.9 Chloride 104 Carbon Dioxide 24.5 Anion Gap 11 BUN 6 L Creatinine 0.57 Estimated GFR Greater than 89 POC Glucose 73 Random Glucose 70 L Lactic Acid Calcium 7.8 L Phosphorus 2.0 L Magnesium 1.6 Total Bilirubin 0.4 AST 26 ALT 15 Alkaline Phosphatase 78 Total Protein 6.2 L Albumin 2.6 L 03/05/18 05:25 WBC RBC Hgb Hct MCV MCH MCHC RDW Plt Count MPV Neut % (Auto) Lymph % (Auto) [place] % (Auto) Eos % (Auto) Baso % (Auto) Neut # (Auto) Lymph # (Auto) [place] # (Auto) Eos # (Auto) Baso # (Auto) WBC Differential Differential Comment Sodium Potassium Chloride Carbon Dioxide Anion Gap BUN Creatinine Estimated GFR POC Glucose Random Glucose Lactic Acid 1.8 Calcium Phosphorus Magnesium Total Bilirubin AST ALT Alkaline Phosphatase Total Protein Albumin Microbiology 03/03/18 06:45 Blood - Peripheral Aerobic Blood Culture - Preliminary No growth in 2 days 03/03/18 06:45 Blood - Peripheral Anaerobic Blood Culture - Preliminary No growth in 2 days 03/03/18 06:55 Blood - Peripheral Aerobic Blood Culture - Preliminary No growth in 2 days 03/03/18 06:55 Blood - Peripheral Anaerobic Blood Culture - Preliminary No growth in 2 days Assessment and Plan - Plan Abdominal pain/Hiatal hernia/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 1 cm small bowel wall edema. Surgical and GI consults appreciated. S/p EGD/colo 03/05 which revealed anastomotic ulceration with edema, otherwise unremarkable studies. -ADAT. -pantoprazole 40 mg IV twice daily for GI prophylaxis/home medication. -Docusate serum/senna 1 tablet twice daily for bowel regimen. -pain control as needed. HTN Initial presentation with hypotension. Improved after fluids. -ADAT. -hold lisinopril. Tobacco abuse On room air at this time. -Incentive spirometry while awake. -cessation instruction. -nebs as needed. Hypophosphatemia/Hypoglycemia Likely s/t decreased PO intake. -On ICU electrolyte protocol. -ADAT. Prophylaxis -GI -pantoprazole -DVT -SCD/heparin subcu Discharge Planning: Would continue to monitor in ICU with borderline blood pressure
[2018-03-05] MEDS: Sucralfate 1 GM Tablet PO SCH ×2 (11:21→18:09)
[2018-03-05] MEDS: Multivitamin Inj 10 ML, Thiamine Inj 100 MG, Folic Acid Inj 1 MG in Sodium Chlor 0.9% I... IV.SIG SCH ×2 (12:24→13:09)
[2018-03-06] MEDS: Heparin - SQ 10,000 UNITS/ML Vial SQ SCH (00:04)
[2018-03-06] MEDS: Insulin NovoLOG Aspart Correctional Sugar Inj SQ SCH ×2 (00:04→06:13)
[2018-03-06] MEDS: Pantoprazole Inj 40 MG Vial IV.PUSH SCH (00:04)
[2018-03-06] MEDS: Piperacil/Tazo 4.5 GM Premix 4.5 GM/100 ML BAG IV.SIG SCH ×2 (00:05→06:13)
[2018-03-06] MEDS: HYDROmorphone PF Inj 2 MG/ML Vial IV.PUSH PRN ×2 (00:09→06:12)
[2018-03-06] MEDS: Chlorhexidine Gluconate 2% 1 Pack (2 Cloths) TOPICAL SCH (05:57)
--- NOTE | 2018-03-06 08:36 | P.PNIM ---
Subjective Interval history: f/u; PUD in no acute distress. has mild lower abdominal pain. no nausea/vomiting. d/w the RN and no acute issues over night. wants to go home today. Physical Exam Vital signs: Vital Signs 03/05/18 09:00 03/05/18 09:09 03/05/18 09:11 Temperature Pulse Rate 101 H 92 H 94 H Respiratory Rate 26 H Blood Pressure 137/86 122/71 Pulse Oximetry 100 100 100 03/05/18 09:13 03/05/18 09:32 03/05/18 09:35 Temperature Pulse Rate 89 96 H 91 H Respiratory Rate Blood Pressure 128/77 114/63 105/60 Pulse Oximetry 99 100 100 03/05/18 09:40 03/05/18 09:45 03/05/18 09:55 Temperature Pulse Rate 99 H 114 H 108 H Respiratory Rate 24 Blood Pressure 109/55 L 100/66 104/74 Pulse Oximetry 100 100 03/05/18 10:00 03/05/18 11:00 03/05/18 12:00 Temperature Pulse Rate 91 H 83 80 Respiratory Rate 14 18 18 Blood Pressure 98/58 L 116/66 112/67 Pulse Oximetry 98 98 97 03/05/18 13:00 03/05/18 14:00 03/05/18 15:00 Temperature Pulse Rate 90 79 97 H Respiratory Rate 21 13 26 H Blood Pressure 114/71 86/49 L Pulse Oximetry 99 98 100 03/05/18 15:06 03/05/18 15:59 03/05/18 16:00 Temperature Pulse Rate 81 87 94 H Respiratory Rate 18 26 H 29 H Blood Pressure 93/55 L 102/60 102/60 Pulse Oximetry 98 97 100 03/05/18 16:25 03/05/18 17:03 03/05/18 17:35 Temperature Pulse Rate 84 120 H 91 H Respiratory Rate 22 22 Blood Pressure 117/61 Pulse Oximetry 100 03/05/18 18:00 03/05/18 18:31 03/05/18 19:09 Temperature Pulse Rate 97 H 104 H Respiratory Rate 22 15 32 H Blood Pressure 119/67 Pulse Oximetry 100 03/05/18 19:46 03/05/18 20:00 03/05/18 21:00 Temperature 98.1 F Pulse Rate 92 H 76 78 Respiratory Rate 16 13 15 Blood Pressure 116/67 116/67 Pulse Oximetry 99 100 98 03/05/18 22:00 03/05/18 23:00 03/06/18 00:00 Temperature Pulse Rate 71 78 81 Respiratory Rate 14 17 22 Blood Pressure Pulse Oximetry 100 100 100 03/06/18 01:00 03/06/18 02:00 03/06/18 03:00 Temperature Pulse Rate 76 70 70 Respiratory Rate 15 13 15 Blood Pressure Pulse Oximetry 99 98 100 03/06/18 04:00 03/06/18 04:09 03/06/18 05:00 Temperature Pulse Rate 71 74 66 Respiratory Rate 14 24 16 Blood Pressure 115/68 103/65 Pulse Oximetry 99 100 99 03/06/18 06:00 Temperature Pulse Rate 64 Respiratory Rate 14 Blood Pressure 100/57 L Pulse Oximetry 100 Intake & Output 03/05/18 03/06/18 03/06/18 18:59 06:59 18:59 Intake Total 500 / 500 1311.2 / 1311.2 Output Total 1999 Balance 500 / 500 -688.8 / -688.8 Weight 55 kg Intake: IV 300 / 300 711.2 / 711.2 MVI-12 Inj 10 ML Thiamine Inj 511.2 / 511.2 100 MG Folvite Inj 1 MG In NS Inj 500 ML @ 125 mls/hr IV.SIG Q24H OJ Rx#:[id number] Zosyn 4.5 GM Premix 4.5 gm In 300 / 300 200 / 200 100 ml @ 200 mls/hr IV.SIG Q6H OJ Rx#:[id number] Oral 600 / 600 Anesthesia Amount 200 / 200 Output: Urine 1999 Other: Date of Last Bowel Movement 03/05/18 - Constitutional no acute distress - Routine Respiratory Exam Present: CTA bilaterally - Routine Cardiovascular Exam Present: RRR - Routine Abdominal Exam Present: soft - Routine Extremities Exam Comments: no pedal edema. - Routine Neurological Exam Present: alert, oriented X3 Results - Labs CBC & Chem 7: 03/05/18 05:25 03/05/18 05:25 Laboratory Results - last 24 hr 03/05/18 03/05/18 03/06/18 11:24 17:43 00:01 POC Glucose 76 93 111 H 03/06/18 06:08 POC Glucose 109 Microbiology 03/03/18 06:45 Blood - Peripheral Aerobic Blood Culture - Preliminary No growth in 2 days 03/03/18 06:45 Blood - Peripheral Anaerobic Blood Culture - Preliminary No growth in 2 days 03/03/18 06:55 Blood - Peripheral Aerobic Blood Culture - Preliminary No growth in 2 days 03/03/18 06:55 Blood - Peripheral Anaerobic Blood Culture - Preliminary No growth in 2 days - Procedures EGD/colonoscopy. 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 1 cm small bowel wall edema. Surgical and GI consults appreciated. S/p EGD/colo 03/05 which revealed anastomotic ulceration with edema, otherwise unremarkable studies. -was evaluated by surgery who signed off. -ADAT. -continue PPI and Carafate HTN Initial presentation with hypotension. Improved after fluids. -ADAT. -continue to hold lisinopril and f/u as outpatient. Tobacco abuse On room air at this time. -Incentive spirometry while awake. -cessation instruction. -nebs as needed. Hypophosphatemia/Hypoglycemia- replaced. -ADAT. Prophylaxis -GI -pantoprazole -DVT -SCD/heparin subcu Discharge Planning: dc home today when cleared by GI. see med list. f/u; pcp and GI. d/w the patient and RN.
--- NOTE | 2018-03-06 08:41 | P.DS ---
Date of admission: 03/03/18 09:58 Primary care physician: UNKNOWN Brief History from admission: This is a 47-year-old female. Date of admission 03/03/2018 past medical includes Cristofer-en-Y 2010 with a GJ perforation with omental patch by Dr. Roy 2014, depression, gastroesophageal disease, history of tobaccoism and prior alcoholism. Patient presents to [facility] with a 2-day history of left lower quadrant abdominal pain. Poor appetite. Patient states the pain is currently a 10 out of 10. Without radiation. Sharp in nature. Patient was hypotensive on arrival probably due to dehydration and received 2 L normal saline. A central line has been placed in the left IJ without complication. Patient did have a leukocytosis, low potassium and low magnesium. CT scan of pelvis revealed a hiatal hernia. Small bowel edema probably 1 cm. Left lower quadrant. Surgery has been counseled. Lactate was normal at 1.4. Her electrolytes are currently being repleted. She still complaining of abdominal pain but does not appear septic the present time. 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 1 cm small bowel wall edema. Surgical and GI consults appreciated. S/p EGD/colo 03/05 which revealed anastomotic ulceration with edema, otherwise unremarkable studies. -was evaluated by surgery who signed off. -ADAT. -continue PPI and Carafate HTN Initial presentation with hypotension. Improved after fluids. -ADAT. -continue to hold lisinopril and f/u as outpatient. Tobacco abuse On room air at this time. -Incentive spirometry while awake. -cessation instruction. -nebs as needed. Hypophosphatemia/Hypoglycemia- replaced. -ADAT. - Time Spent with Patient Total time spent providing and/or coordinating discharge services: Less than 30 minutes - Quality: VTE Deep Vein Thrombosis/Pulmonary Embolism Present on Admission: No Exam Vital signs: Vital Signs 03/05/18 09:00 03/05/18 09:09 03/05/18 09:11 Temperature Pulse Rate 101 H 92 H 94 H Respiratory Rate 26 H Blood Pressure 137/86 122/71 Pulse Oximetry 100 100 100 11/02/18 09:13 03/05/18 09:32 03/05/18 09:35 Temperature Pulse Rate 89 96 H 91 H Respiratory Rate Blood Pressure 128/77 114/63 105/60 Pulse Oximetry 99 100 100 03/05/18 09:40 03/05/18 09:45 03/05/18 09:55 Temperature Pulse Rate 99 H 114 H 108 H Respiratory Rate 24 Blood Pressure 109/55 L 100/66 104/74 Pulse Oximetry 100 100 03/05/18 10:00 03/05/18 11:00 03/05/18 12:00 Temperature Pulse Rate 91 H 83 80 Respiratory Rate 14 18 18 Blood Pressure 98/58 L 116/66 112/67 Pulse Oximetry 98 98 97 03/05/18 13:00 03/05/18 14:00 03/05/18 15:00 Temperature Pulse Rate 90 79 97 H Respiratory Rate 21 13 26 H Blood Pressure 114/71 86/49 L Pulse Oximetry 99 98 100 03/05/18 15:06 03/05/18 15:59 03/05/18 16:00 Temperature Pulse Rate 81 87 94 H Respiratory Rate 18 26 H 29 H Blood Pressure 93/55 L 102/60 102/60 Pulse Oximetry 98 97 100 03/05/18 16:25 03/05/18 17:03 03/05/18 17:35 Temperature Pulse Rate 84 120 H 91 H Respiratory Rate 22 22 Blood Pressure 117/61 Pulse Oximetry 100 03/05/18 18:00 03/05/18 18:31 03/05/18 19:09 Temperature Pulse Rate 97 H 104 H Respiratory Rate 22 15 32 H Blood Pressure 119/67 Pulse Oximetry 100 03/05/18 19:46 03/05/18 20:00 03/05/18 21:00 Temperature 98.1 F Pulse Rate 92 H 76 78 Respiratory Rate 16 13 15 Blood Pressure 116/67 116/67 Pulse Oximetry 99 100 98 03/05/18 22:00 03/05/18 23:00 03/06/18 00:00 Temperature Pulse Rate 71 78 81 Respiratory Rate 14 17 22 Blood Pressure Pulse Oximetry 100 100 100 03/06/18 01:00 03/06/18 02:00 03/06/18 03:00 Temperature Pulse Rate 76 70 70 Respiratory Rate 15 13 15 Blood Pressure Pulse Oximetry 99 98 100 03/06/18 04:00 03/06/18 04:09 11/03/18 05:00 Temperature Pulse Rate 71 74 66 Respiratory Rate 14 24 16 Blood Pressure 115/68 103/65 Pulse Oximetry 99 100 99 03/06/18 06:00 Temperature Pulse Rate 64 Respiratory Rate 14 Blood Pressure 100/57 L Pulse Oximetry 100 Intake & Output 03/05/18 03/06/18 03/06/18 18:59 06:59 18:59 Intake Total 500 / 500 1311.2 / 1311.2 Output Total 1999 Balance 500 / 500 -688.8 / -688.8 Weight 55 kg Intake: IV 300 / 300 711.2 / 711.2 MVI-12 Inj 10 ML Thiamine Inj 511.2 / 511.2 100 MG Folvite Inj 1 MG In NS Inj 500 ML @ 125 mls/hr IV.SIG Q24H OJ Rx#:[id number] Zosyn 4.5 GM Premix 4.5 gm In 300 / 300 200 / 200 100 ml @ 200 mls/hr IV.SIG Q6H OJ Rx#:[id number] Oral 600 / 600 Anesthesia Amount 200 / 200 Output: Urine 1999 Other: Date of Last Bowel Movement 03/05/18 - Constitutional no acute distress - Routine Respiratory Exam Present: CTA bilaterally - Routine Cardiovascular Exam Present: RRR - Routine Abdominal Exam Present: soft - Routine Extremities Exam Comments: no pedal edema. - Routine Neurological Exam Present: alert, oriented X3 Results Procedures completed during hospitalization: EGD/colonoscopy. Pending studies at discharge: Pending at discharge 03/05/18 10:18 Surgical [PTH] Routine Labs on day of discharge: Labs from last 24 hours 03/06/18 03/06/18 03/05/18 06:08 00:01 17:43 POC Glucose 109 111 H 93 03/05/18 11:24 POC Glucose 76 Preliminary micro results at discharge 03/03/18 06:45 Aerobic Blood Culture - Preliminary Blood - Peripheral No growth in 2 days Anaerobic Blood Culture - Preliminary No growth in 2 days 03/03/18 06:55 Aerobic Blood Culture - Preliminary Blood - Peripheral No growth in 2 days Anaerobic Blood Culture - Preliminary No growth in 2 days - Impressions ITS Impressions Chest X-Ray 03/03/18 06:43 CONCLUSION: 1. Left IJ central venous catheter with tip in the superior vena cava. No pneumothorax. 2. No acute infiltrate. Scattered parenchymal opacities and bronchiectasis/ scarring not significantly changed. Abdomen/Pelvis CT 03/03/18 06:49 CONCLUSION: 1. Abnormal proximal small bowel with dilatation and wall thickening. There is no definite obstruction. The finding is nonspecific and could be infectious or inflammatory. There are postsurgical changes consistent with partial bowel resection. 2. Small to moderate amount of ascitic fluid greatest in the pelvis. 3. Status post cholecystectomy. Discharge Plan - Discharge Disposition Patient Disposition: 01 Discharge Home - Discharge Condition Condition: Fair - Physicians Team Primary Care Provider: UNKNOWN, Attending Provider: Luisa Daniel Other Providers: Luca Lutz MD ; Xiang Pagan MD
--- NOTE | 2018-03-06 09:18 | P.PNGI ---
Subjective Interval history: Pt is resting in bed, doing breathing tx, having some mild tenderness but not as bad as it used to be. Going home soon, no nausea, no vomiting, no melena or hematochezia <Arnav Cid - Last Filed: 03/06/18 09:12> Physical Exam Vital signs: Vital Signs 03/05/18 09:13 03/05/18 09:32 03/05/18 09:35 Temperature Pulse Rate 89 96 H 91 H Respiratory Rate Blood Pressure 128/77 114/63 105/60 Pulse Oximetry 99 100 100 03/05/18 09:40 03/05/18 09:45 03/05/18 09:55 Temperature Pulse Rate 99 H 114 H 108 H Respiratory Rate 24 Blood Pressure 109/55 L 100/66 104/74 Pulse Oximetry 100 100 03/05/18 10:00 03/05/18 11:00 03/05/18 12:00 Temperature Pulse Rate 91 H 83 80 Respiratory Rate 14 18 18 Blood Pressure 98/58 L 116/66 112/67 Pulse Oximetry 98 98 97 03/05/18 13:00 03/05/18 14:00 03/05/18 15:00 Temperature Pulse Rate 90 79 97 H Respiratory Rate 21 13 26 H Blood Pressure 114/71 86/49 L Pulse Oximetry 99 98 100 03/05/18 15:06 03/05/18 15:59 03/05/18 16:00 Temperature Pulse Rate 81 87 94 H Respiratory Rate 18 26 H 29 H Blood Pressure 93/55 L 102/60 102/60 Pulse Oximetry 98 97 100 03/05/18 16:25 03/05/18 17:03 03/05/18 17:35 Temperature Pulse Rate 84 120 H 91 H Respiratory Rate 22 22 Blood Pressure 117/61 Pulse Oximetry 100 03/05/18 18:00 03/05/18 18:31 03/05/18 19:09 Temperature Pulse Rate 97 H 104 H Respiratory Rate 22 15 32 H Blood Pressure 119/67 Pulse Oximetry 100 03/05/18 19:46 03/05/18 20:00 03/05/18 21:00 Temperature 98.1 F Pulse Rate 92 H 76 78 Respiratory Rate 16 13 15 Blood Pressure 116/67 116/67 Pulse Oximetry 99 100 98 03/05/18 22:00 03/05/18 23:00 03/06/18 00:00 Temperature Pulse Rate 71 78 81 Respiratory Rate 14 17 22 Blood Pressure Pulse Oximetry 100 100 100 03/06/18 01:00 03/06/18 02:00 03/06/18 03:00 Temperature Pulse Rate 76 70 70 Respiratory Rate 15 13 15 Blood Pressure Pulse Oximetry 99 98 100 03/06/18 04:00 03/06/18 04:09 03/06/18 05:00 Temperature Pulse Rate 71 74 66 Respiratory Rate 14 24 16 Blood Pressure 115/68 103/65 Pulse Oximetry 99 100 99 03/06/18 06:00 03/06/18 09:08 Temperature Pulse Rate 64 93 H Respiratory Rate 14 16 Blood Pressure 100/57 L Pulse Oximetry 100 99 Intake & Output 03/05/18 03/06/18 03/06/18 18:59 06:59 18:59 Intake Total 500 / 500 1311.2 / 1311.2 Output Total 1999 Balance 500 / 500 -688.8 / -688.8 Weight 55 kg Intake: IV 300 / 300 711.2 / 711.2 MVI-12 Inj 10 ML Thiamine Inj 511.2 / 511.2 100 MG Folvite Inj 1 MG In NS Inj 500 ML @ 125 mls/hr IV.SIG Q24H OJ Rx#:[id number] Zosyn 4.5 GM Premix 4.5 gm In 300 / 300 200 / 200 100 ml @ 200 mls/hr IV.SIG Q6H OJ Rx#:[id number] Oral 600 / 600 Anesthesia Amount 200 / 200 Output: Urine 1999 Other: Date of Last Bowel Movement 03/05/18 Narrative: GENERAL: In no acute distress. NECK: Trachea midline. No JVD. Left IJ CVL is clean dry and intact CARDIOVASCULAR: Regular rate and rhythm. S1, S2. No S4. No murmur RESPIRATORY: No accessory muscle use. Clear to auscultation. Breath sounds equal bilaterally. GASTROINTESTINAL: Abdomen soft, nondistended. mild tenderness. Prior scarring from abdominal surgeries noted. MUSCULOSKELETAL: Extremities without clubbing, cyanosis, or edema. No obvious deformities. NEUROLOGICAL: Awake and alert X 3. <Arnav Cid - Last Filed: 03/06/18 09:12> Vital signs: Vital Signs 03/05/18 13:00 03/05/18 14:00 03/05/18 15:00 Temperature Pulse Rate 90 79 97 H Respiratory Rate 21 13 26 H Blood Pressure 114/71 86/49 L Pulse Oximetry 99 98 100 03/05/18 15:06 03/05/18 15:59 03/05/18 16:00 Temperature Pulse Rate 81 87 94 H Respiratory Rate 18 26 H 29 H Blood Pressure 93/55 L 102/60 102/60 Pulse Oximetry 98 97 100 03/05/18 16:25 03/05/18 17:03 03/05/18 17:35 Temperature Pulse Rate 84 120 H 91 H Respiratory Rate 22 22 Blood Pressure 117/61 Pulse Oximetry 100 03/05/18 18:00 03/05/18 18:31 03/05/18 19:09 Temperature Pulse Rate 97 H 104 H Respiratory Rate 22 15 32 H Blood Pressure 119/67 Pulse Oximetry 100 03/05/18 19:46 03/05/18 20:00 03/05/18 21:00 Temperature 98.1 F Pulse Rate 92 H 76 78 Respiratory Rate 16 13 15 Blood Pressure 116/67 116/67 Pulse Oximetry 99 100 98 03/05/18 22:00 03/05/18 23:00 03/06/18 00:00 Temperature Pulse Rate 71 78 81 Respiratory Rate 14 17 22 Blood Pressure Pulse Oximetry 100 100 100 03/06/18 01:00 03/06/18 02:00 03/06/18 03:00 Temperature Pulse Rate 76 70 70 Respiratory Rate 15 13 15 Blood Pressure Pulse Oximetry 99 98 100 03/06/18 04:00 03/06/18 04:09 03/06/18 05:00 Temperature Pulse Rate 71 74 66 Respiratory Rate 14 24 16 Blood Pressure 115/68 103/65 Pulse Oximetry 99 100 99 03/06/18 06:00 03/06/18 08:00 03/06/18 09:00 Temperature 98.0 F Pulse Rate 64 81 82 Respiratory Rate 14 14 Blood Pressure 100/57 L 124/70 Pulse Oximetry 100 100 03/06/18 09:08 Temperature Pulse Rate 93 H Respiratory Rate 16 Blood Pressure Pulse Oximetry 99 Intake & Output 03/05/18 03/06/18 03/06/18 18:59 06:59 18:59 Intake Total 500 / 500 1311.2 / 1311.2 Output Total 1999 Balance 500 / 500 -688.8 / -688.8 Weight 55 kg Intake: IV 300 / 300 711.2 / 711.2 MVI-12 Inj 10 ML Thiamine Inj 511.2 / 511.2 100 MG Folvite Inj 1 MG In NS Inj 500 ML @ 125 mls/hr IV.SIG Q24H OJ Rx#:[id number] Zosyn 4.5 GM Premix 4.5 gm In 300 / 300 200 / 200 100 ml @ 200 mls/hr IV.SIG Q6H OJ Rx#:[id number] Oral 600 / 600 Anesthesia Amount 200 / 200 Output: Urine 1999 Other: Date of Last Bowel Movement 03/05/18 03/05/18 <Pricilla Ruiz - Last Filed: 03/06/18 12:50> Results - Labs CBC & Chem 7: 03/05/18 05:25 03/05/18 05:25 Laboratory Results - last 24 hr 03/05/18 03/05/18 03/06/18 11:24 17:43 00:01 POC Glucose 76 93 111 H 03/06/18 06:08 POC Glucose 109 Microbiology 03/03/18 06:45 Blood - Peripheral Aerobic Blood Culture - Preliminary No growth in 2 days 03/03/18 06:45 Blood - Peripheral Anaerobic Blood Culture - Preliminary No growth in 2 days 03/03/18 06:55 Blood - Peripheral Aerobic Blood Culture - Preliminary No growth in 2 days 03/03/18 06:55 Blood - Peripheral Anaerobic Blood Culture - Preliminary No growth in 2 days - Procedures EGD/colonoscopy. <Arnav Cid - Last Filed: 03/06/18 09:12> - Labs CBC & Chem 7: 03/05/18 05:25 03/05/18 05:25 Laboratory Results - last 24 hr 03/05/18 03/06/18 03/06/18 17:43 00:01 06:08 POC Glucose 93 111 H 109 Microbiology 03/03/18 06:45 Blood - Peripheral Aerobic Blood Culture - Preliminary No growth in 3 days 03/03/18 06:45 Blood - Peripheral Anaerobic Blood Culture - Preliminary No growth in 3 days 03/03/18 06:55 Blood - Peripheral Aerobic Blood Culture - Preliminary No growth in 3 days 03/03/18 06:55 Blood - Peripheral Anaerobic Blood Culture - Preliminary No growth in 3 days <Pricilla Ruiz - Last Filed: 03/06/18 12:50> Assessment and Plan (1) Abdominal pain Status: Acute Code(s): R10.9 - Unspecified abdominal pain (2) Gastroesophageal reflux disease Status: Chronic Code(s): K21.9 - Gastro-esophageal reflux disease without esophagitis - Plan This patient is a 47-year-old female who presented to the emergency room at [facility] on 03/03/2018. Past medical history includes gastric bypass in 2010 with a GJ perforation with omental patch by Dr. Roy 2014. Patient also has history of depression, gastroesophageal reflux, perforated bowel, hypertension, COPD, use of tobacco and prior alcohol abuse. Surgical history includes Cristofer-en-Y gastric bypass, bowel resection, lobectomy of lung, and wrist surgery. Upon consultation, patient reports 2-day history of constant sharp pain across lower abdomen that she rated as 9 out of 10. Denies any alleviating or aggravating factors. Patient also endorses heartburn with acid reflux for 2 days. States she vomited x 2 a yellow biliary emesis. Patient reports gnawing epigastric pain at this time. She rates it at 4/10, states it is constant and burning in nature. She reports history of GERD for which she takes Protonix 40 mg p.o. twice daily . She states it is controlled by the administered pain medication Dilaudid. Last EGD per patient was done in 2017 and was unremarkable per her recollection. Patient denies any difficulty or pain with swallowing. Patient states she normally has a BM every 2-4 days. She states stools are normally brown and hard without any noted bleeding. She takes stool softeners nightly to alleviate this. Patient states she is a cigarette smoker half a pack per day and states that she ingest alcohol socially or on special occasions only. Patient denies any known family history of any gastrointestinal disorders. Our practice has been consulted to evaluate patient's presenting symptoms. History of perforated ulcer ?Jejunitis History of Cristofer-en-Y in 2010 with GJ perforation and omental patch 2014 Epigastric pain, reporting acid reflux while being on Protonix 40 mg p.o. twice daily 03/03/2018 CT abdomen and pelvis revealed the following findings: 1. Abnormal proximal small bowel with dilatation and wall thickening.There is no definite obstruction.The finding is nonspecific and could be infectious or inflammatory. There are postsurgical changes consistent with partial bowel resection. 2. Small to moderate amount of ascitic fluid greatest in the pelvis. 3. Status post cholecystectomy. WBC on admission 16.3 now resolving leukocytosis, today 7.8. Hemoglobin 9.4 hematocrit 28.8 INR 1.1 total bilirubin 0.4 AST 12 ALT 12 alk phos 56. S/P EGD/colonoscopy on 03/05/18 ----> Anastomotic ulceration with edema and probable compromise the lumen Otherwise unremarkable EGD and unremarkable colonoscopy Plan - Ok to DC home - F/u with GI in 2 weeks - EGD in 2 months - Cont. Protonix - Avoid NSAIDs This patient has been seen by myself and Dr. Ruiz and this note is written on her behalf <Arnav Cid - Last Filed: 03/06/18 09:12> (1) Abdominal pain Status: Acute Code(s): R10.9 - Unspecified abdominal pain (2) Gastroesophageal reflux disease Status: Chronic Code(s): K21.9 - Gastro-esophageal reflux disease without esophagitis - Attending Attestation seen, examined agree with above <Pricilla Ruiz - Last Filed: 03/06/18 12:50> <Arnav Cid - Last Filed: 03/06/18 09:12> (1) Abdominal pain Qualifiers: Abdominal location: left lower quadrant Qualified Code(s): R10.32 - Left lower quadrant pain (2) Gastroesophageal reflux disease Qualifiers: Esophagitis presence: esophagitis presence not specified Qualified Code(s): K21.9 - Gastro-esophageal reflux disease without esophagitis <Pricilla Riuz - Last Filed: 03/06/18 12:50> (1) Abdominal pain Qualifiers: Abdominal location: left lower quadrant Qualified Code(s): R10.32 - Left lower quadrant pain (2) Gastroesophageal reflux disease Qualifiers: Esophagitis presence: esophagitis presence not specified Qualified Code(s): K21.9 - Gastro-esophageal reflux disease without esophagitis
[2018-03-06] MEDS: Sucralfate 1 GM Tablet PO SCH (09:20)
[2018-03-06] MEDS: Senna/Docusate Sodium 8.6/50 MG Tablet PO SCH (09:20)
== END 2018-03-06 12:10 | disposition home or self-care (01) ==
LOC: NEPE 06:03 → NEDA 09:58 → HIMC 12:20
PROVIDERS: ADMIT Internal Medicine; ATTEND Internal Medicine
PROC: COLONOS (2018-03-05 09:07)
PROC: PANENDO (2018-03-05 09:07)